=== PATIENT | male | born 1940 | race African-American/Black ===

== ENCOUNTER 2017-03-17 13:22 | Inpatient (IN) | payer MEDICARE ==
--- NOTE | 2017-03-17 14:22 | RAD ---
SINGLE VIEW CHEST: Date: 03/17/17 COMPARISON: 05/18/12. HISTORY: Difficulty breathing/dyspnea. FINDINGS: Single view of chest shows a cardiomediastinal silhouette which is upper limits of normal in size wit h atherosclerotic calcifications in the aorta. There is no evidence of consolidation or mass. There m ay be a small left pleural effusion. IMPRESSION: Possible small left pleural effusion. POS: [facility]
[2017-03-17 14:46] LABS: #Lymphocytes 0.3 thou/uL (1.20-3.40); #Monocytes 0.3 thou/uL (0.11-0.59); #Neutrophils 7.5 thou/uL (1.40-6.50); %Eosinophils 0.3 % (0.0-10.0); %Lymphocytes 4.1 % (21.0-51.0); %Monocytes 3.1 % (0.0-10.0); %Neutrophils 92.5 % (42.0-75.0); Hemoglobin 11.8 g/dL (14.0-18.0); Mean Corpuscular Hemoglobin 27.6 pg (27.0-31.0); Mean Platelet Volume 6.8 fL (7.4-10.4); Platelet Count 260 thou/uL (130-400); RBC Distribution Width 12.8 % (11.5-14.5); Red Blood Cell (RBC) Count 4.28 mill/uL (4.70-6.10); White Blood Cell (WBC) Count 8.1 thou/uL (4.8-10.8)
[2017-03-17 15:09] LABS: ALT (SGPT) 55 U/L (8-55); AST (SGOT) 50 U/L (5-34); Albumin 2.6 g/dL (3.4-4.8); Alkaline Phosphatase 50 U/L (40-150); Anion Gap 10 mmol/L (10-20); BUN (Urea Nitrogen) 70 mg/dL (8.4-25.7); Bilirubin, Total 0.3 mg/dL (0.2-1.2); CK (CPK) 434 U/L (30-200); Calc. Creatinine Clearance 0 mL/min (70-130); Calcium 9.1 mg/dL (7.8-10.44); Carbon Dioxide 30 mmol/L (23-31); Chloride 93 mmol/L (98-107); Estimated GFR-MDRD 49; Globulin 3.2 g/dL (2.4-3.5); Glucose 127 mg/dL (83-110); Protein, Total 5.8 g/dL (5.8-8.1); Sodium 127 mmol/L (136-145)
[2017-03-17 15:13] LABS: Troponin I 0.181 ng/mL (< 0.028)
[2017-03-17 15:16] LABS: CKMB 10.3 ng/mL (0-6.6)
[2017-03-17] MEDS ORDERED: Furosemide 40 MG/4 ML VIAL ONE (15:28)
[2017-03-17] MEDS ORDERED: hydrALAZINE 20 MG/ML VIAL SLOW IVP PRN (17:31)
[2017-03-17] MEDS ORDERED: Ondansetron HCl/PF 4 MG/2 ML Vial IVP PRN (17:31)
[2017-03-17] MEDS ORDERED: Dextrose 5% in Water 1,000 ML IV PRN (17:31)
[2017-03-17] MEDS ORDERED: Dextrose 50% Abboject 50 ML SYRINGE SLOW IVP PRN (17:31)
[2017-03-17] MEDS ORDERED: Acetaminophen 325 MG TAB PO PRN (17:31)
[2017-03-17] MEDS ORDERED: HYDROcodone/Acetaminophen 5/325 mg Tablet PO PRN (17:31)
[2017-03-17 17:36] VITALS: BMI 27.0
--- NOTE | 2017-03-17 20:21 | HP ---
CHIEF COMPLAINT: Shortness of breath and cough. HISTORY OF PRESENT ILLNESS: This is a 76-year-old pleasant gentleman who was recently discharged fro [facility] after being admitted there for cough and swelling of the feet. Apparently, the family was not clear. He had uncontrolled sugars as well there. The doctors of there controlled the sugar and send him home. The family noticed that the patient got progressively short of breath and hence they brought him out here. No fever, no chills. He does not have any diarrhea or dysuria. The patient d enies any chest pain. Admits to cough and shortness of breath. He usually pretty active in his [facility], but because of the bilateral swelling of the feet and cough and shortness of breath, he came to [facility] for further evaluation and treatment. His regular doctor is Dr. Blas Dimas and Dr. Cabezas is his electrotype caster. When he came in, his initial lab work reflected a high potassium of 6, low sodium of 127, troponin of 0.18 and hence he has been admitted for the evaluation and treatment of [facility]. PAST MEDICAL HISTORY: Significant for congestive heart failure. He does not know what kind of diabe kiah, bilateral pedal edema, hyperlipidemia and asthma. PAST SURGICAL HISTORY: Significant for back surgery and colonoscopy, which was significant for some polyps. ALLERGIES: No known drug allergies. SOCIAL HISTORY: He does not smoke, drink or do recreational drugs. FAMILY HISTORY: Negative for diabetes or hypertension. MEDICATIONS: Please see MAR. REVIEW OF SYSTEMS: Significant for cough, shortness of breath, which has worsened over time and bila teral pedal edema. The patient otherwise has no fever, no chills, no headache, no eye pain, no heari ng loss, no latencies. No chest pain, no diarrhea, dysuria, or polyuria. No memory or mood changes. No neck pain. PHYSICAL EXAMINATION: VITAL SIGNS: The patient's blood pressure is 130/64, pulse is 74, respirations 20 and afebrile. GENERAL: The patient is lying in bed in no apparent distress. HEENT: Atraumatic and normocephalic. Pupils are equally round and reactive to light. Extraocular m ovements intact. Mucous membranes moist. NECK: Supple. No JVD. CHEST: Coarse breath sounds heard, some dependent crackles heard. HEART: S1 and S2. No murmurs or gallops. ABDOMEN: Soft and obese. EXTREMITIES: Bilateral pedal edema. No distal pulses are palpable. No cyanosis or clubbing. LABORATORY AND IMAGING DATA: Chest x-ray shows left-sided pleural effusion, otherwise no consolidati on. WBC count is 8.1, hemoglobin is 11, potassium is 6, sodium is 127, creatinine is 1.6 and BUN is 70. Chest x-ray as mentioned above. ASSESSMENT AND PLAN: 1. Congestive heart failure exacerbation, given his shortness of breath. We will treat the patient with IV Lasix, DuoNebs for breathing. We will consult Cardiology, trend troponins p.o. 2. Hyponatremia. We will monitor the patient's sodium this hospital stay and consult Dr. Cabezas. 3. Hyperkalemia. The patient already got a dose of Kayexalate in the ER. We will monitor potassium and do the need for. We will also follow up with Dr. Cabezas's plan. 4. Elevated troponin. We will follow Cardiology's plan. We will trend troponins. We will do echoc ardiogram and monitor the patient. 5. Acute renal failure on chronic kidney disease. We will follow Dr. Cabezas's plan. 6. Moderate protein-calorie malnutrition with albumin of 2.6. The patient will be encouraged to hav e more nutritious diet. I will work with the consultants and further caring for the patient.
[2017-03-17] MEDS ORDERED: Sodium Chloride 0.9% 10 ML ONE (20:25)
[2017-03-17] MEDS: HumaLOG 300 UNITS/3 ML VIAL SC PRN (20:56)
[2017-03-17] MEDS: Docusate 100 MG CAP PO SCH (20:57)
[2017-03-17 21:13] LABS: Troponin I 0.174 ng/mL (< 0.028)
[2017-03-18] MEDS: Benzonatate 100 MG CAP PO PRN ×2 (04:02→21:50)
[2017-03-18 05:20] LABS: #Lymphocytes 0.6 thou/uL (1.20-3.40); #Monocytes 0.6 thou/uL (0.11-0.59); #Neutrophils 5.5 thou/uL (1.40-6.50); %Basophils 0.2 % (0.0-1.0); %Eosinophils 0.2 % (0.0-10.0); %Lymphocytes 9.4 % (21.0-51.0); %Monocytes 8.9 % (0.0-10.0); %Neutrophils 81.3 % (42.0-75.0); Hemoglobin 10.6 g/dL (14.0-18.0); Mean Corpuscular HGB CONC 30.8 g/dL (32.0-36.0); Mean Corpuscular Hemoglobin 27.3 pg (27.0-31.0); Mean Corpuscular Volume 88.7 fl (80.0-94.0); Mean Platelet Volume 6.6 fL (7.4-10.4); Platelet Count 243 thou/uL (130-400); Red Blood Cell (RBC) Count 3.88 mill/uL (4.70-6.10); White Blood Cell (WBC) Count 6.8 thou/uL (4.8-10.8)
[2017-03-18] MEDS ORDERED: Sodium Chloride 0.9% 10 ML ONE ×3 (05:28→23:08)
[2017-03-18 05:39] LABS: Albumin 2.4 g/dL (3.4-4.8); Anion Gap 9 mmol/L (10-20); BUN (Urea Nitrogen) 65 mg/dL (8.4-25.7); BUN/Creatinine Ratio 36.72; Calc. Creatinine Clearance 41 mL/min (70-130); Calcium 8.4 mg/dL (7.8-10.44); Carbon Dioxide 33 mmol/L (23-31); Chloride 93 mmol/L (98-107); Estimated GFR-MDRD 45; Glucose 244 mg/dL (83-110); Phosphorus 3.9 mg/dL (2.3-4.7); Sodium 130 mmol/L (136-145)
[2017-03-18] MEDS ORDERED: Furosemide 40 MG/4 ML VIAL SLOW IVP SCH ×2 (06:00→09:00)
[2017-03-18] MEDS: Docusate 100 MG CAP PO SCH ×2 (09:30→20:19)
--- NOTE | 2017-03-18 09:34 | CON ---
DATE OF CONSULTATION: 03/18/2017 HISTORY OF PRESENT ILLNESS: Mr. Nelson is a 76-year-old black male with chronic renal failure from p resumed diabetic nephropathy and admitted for shortness of breath and cough. Of interest, this patie nt was recently admitted at [facility] for COPD exacerbation. We are now being consulted for his chronic renal failure. Initially, his potassium was noted at 6, b ut this morning it was repeated, it is now within normal. REVIEW OF SYSTEMS: Positive for mild shortness of breath. Positive for cough, no nausea, no vomitin g, no diarrhea. Denies any chest pain, no syncopal episode, no productive cough, no fever or chills. Energy level is fair. No diplopia. No hematemesis. Occasional joint pains. No new skin rashes, occasional urinary hesitancy. MEDICATIONS: Currently on Alda 5/325 q.4h. p.r.n., aspirin 81 mg tab once daily, Tessalon Perles 10 0 mg p.o. q.4h. p.r.n., Colace 100 mg p.o. b.i.d., furosemide 40 mg IV q.12h., Toprol succinate 12.5 mg every day, Zofran 4 mg IV q.4h. as needed. PAST MEDICAL HISTORY: 1. COPD. 2. Chronic renal failure from diabetic nephropathy. 3. BPH. 4. Hyperlipidemia. 5. History of microalbuminuria. 6. DJD. PAST SURGICAL HISTORY: 1. Status post back surgery x2. 2. Status post circumcision. 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 Education : GED. He smoked for 2 years 1 pack a day. Alcohol none. No blood transfusion. No IV drug abuse. Patient lives in [place]. FAMILY HISTORY: No family history of ESRD. ALLERGIES: None. TRAUMA: None. IMMUNIZATIONS: Up to date. HOSPITALIZATIONS: Please see past medical history. He was recently admitted to [facility] for COPD exa cerbation. PHYSICAL EXAMINATION: VITAL SIGNS: Blood pressure 159/77, heart rate 93, respiratory rate 20, temperature 99.2, pulse ox i s 97%, temperature 99.2. GENERAL: Awake, supine, comfortable, not in overt distress. SKIN: Adequate turgor. HEENT: Slightly pale conjunctivae, anicteric sclerae. NECK: No neck mass, no carotid bruits, no JVD. CHEST: No deformities. LUNGS: Decreased breath sounds. HEART: Normal sinus rhythm. No murmur, no gallops or rubs. ABDOMEN: Globular, soft, nontender, no masses. EXTREMITIES: No edema, no deformities. NEUROLOGIC: Awake, following commands. No tremors, no asterixis. LABORATORY AND X-RAY FINDINGS: 03/18/2017 - Sodium 130, potassium 5, chloride 99, carbon dioxide 33, BUN 65, creatinine 1.77, glucose 244, calcium 8.4, phosphorus 3.9, albumin 2.4. 03/17/2017 - Creatinine 1.67. White count 6.8, hemoglobin 10.6. 03/17/2017 - Chest x-ray shows possible small left pleural effusion. ASSESSMENT AND PLAN: 1. Shortness of breath - this is most likely related to his underlying chronic obstructive pulmonary disease. Continue supportive care. Continue DuoNeb treatment with this patient. 2. Small pleural effusion. I would probably decrease the dose of the Lasix to once a day dosing. I do not think this patient is in congestive heart failure. 3. Chronic renal failure from diabetic nephropathy. Creatinine is slightly high at 1.7. His baseli ne is 1.5. Continue judicious use of diuretics. Consider decreasing Lasix dose. There is no indica tion for any dialytic intervention. Recheck base met and CBC in a.m.
[2017-03-18] MEDS: HumaLOG 300 UNITS/3 ML VIAL SC PRN ×3 (09:35→21:54)
[2017-03-18] MEDS ORDERED: cefTRIAXone\\ROCEPHIN 1 GM in Sodium Chloride 0.9% 100 ML IVPB SCH (11:15)
[2017-03-18] MEDS: cefTRIAXone\\ROCEPHIN 1 GM, Syringe 0.4 ML in Sterile Water 9.6 ML SLOW IVP SCH (13:30)
--- NOTE | 2017-03-18 15:42 | CON ---
DATE OF CONSULT: 03/18/2017 HISTORY: Patient is a 76-year-old gentleman who presents with recurrent dyspnea. The patient has a long histo ry of hypertension. He was recently at [facility] with dyspnea and poorly contro lled hypertension. The patient had his medications adjusted. He also has a history of chronic renal insufficiency. The patient presents with increasing cough, and lower extremity swelling. The patie nt denied having any chest discomfort. He denies having any PND or orthopnea. PAST MEDICAL HISTORY: 1. Congestive heart failure. 2. Hypertension. 3. Chronic renal insufficiency. 4. Asthma. 5. History of colonic polyps. PAST SURGICAL HISTORY: He has had several back surgeries. ALLERGIES: No known drug allergies. SOCIAL HISTORY: Nonsmoker. FAMILY HISTORY: Positive family history of heart disease. He sister had coronary bypass graft surgery. REVIEW OF SYSTEMS: Ten-point system is noticeable for lower extremity edema and increased coughing. Ten-point system oth erwise unremarkable. PHYSICAL EXAMINATION: GENERAL: Well developed gentleman in mild distress. VITAL SIGNS: Blood pressure 162/74. NECK: Full. LUNGS: Lungs have few scattered crackles in both bases. HEART: Regular rate and rhythm, normal S1, S2 with an S4 and a I/ systolic murmur. ABDOMEN: Distended. EXTREMITIES: Showed severe bilateral edema. NEUROLOGIC: Nonfocal. VASCULAR: Radial pulses are 2+. SKIN: Warm and dry. LABORATORY: Sodium 130, potassium 5.0, chloride 93, bicarbonate 65, BUN is 65, creatinine 1.7, glucose was 244. White blood cell count 6.8, hemoglobin 10.6, hematocrit 34.4 and his platelets are 243. His troponin was 0.17 and BNP is 342. EKG revealed normal sinus rhythm with Q-waves suggestive of possible previ ous septal infarct. Echocardiogram revealed normal left ventricular ejection fraction 60-65% with se manuel LVH and diastolic dysfunction with pulmonary hypertension. IMPRESSION: 1. Congestive heart failure secondary to diastolic dysfunction. 2. Hypertension, poorly controlled. 3. Chronic renal failure. 4. History of asthma. This gentleman presents with recurrent congestive heart failure. From a cardiac standpoint, it is im perative that he have improved control of his hypertension. Would recommend switching from Norvasc t o nifedipine to better control his blood pressure. The life threatening consequences have been expla ined to the patient of his continued poorly controlled hypertension. We would restart the patient on this labetalol. Will follow this patient with you through his hospitalization.
--- NOTE | 2017-03-18 16:08 | CON ---
HISTORY: Patient is a 76-year-old gentleman who presents with recurrent dyspnea. The patient has a long history of hypertension. He was recently at [facility] with dyspnea and poorly controlled hypertension. The patient had his medications adjusted. He also has a history of chronic renal insufficiency. The patient presents with increasing cough, and lower extremity swelling. The patient denied having any chest discomfort. He denies having any PND or orthopnea. PAST MEDICAL HISTORY: 1. Congestive heart failure. 2. Hypertension. 3. Chronic renal insufficiency. 4. Asthma. 5. History of colonic polyps. PAST SURGICAL HISTORY: He has had several back surgeries. ALLERGIES: No known drug allergies. SOCIAL HISTORY: Nonsmoker. FAMILY HISTORY: Positive family history of heart disease. His sister had coronary bypass graft surgery. REVIEW OF SYSTEMS: Ten-point system is noticeable for lower extremity edema and increased coughing. Ten-point system otherwise unremarkable. PHYSICAL EXAMINATION: GENERAL: Well developede gentleman in mild distress. VITAL SIGNS: Blood pressure 162/74. NECK: Full. LUNGS: Lungs have few scattered crackles in both bases. HEART: Regular rate and rhythm, normal S1, S2 with an S4 and a I/ systolic murmur. ABDOMEN: Distended. EXTREMITIES: Showed severe bilateral edema. NEUROLOGIC: Nonfocal. VASCULAR: Radial pulses are 2+. SKIN: Warm and dry. LABORATORY: Sodium 130, potassium 5.0, chloride 93, bicarbonate 65, BUN is 65, creatinine 1.7, glucose was 244. White blood cell count 6.8, hemoglobin 10.6, hematocrit 34.4 and his platelets are 243. His troponin was 0.17 and BNP is 342. EKG revealed normal sinus rhythm with Q-waves suggestive of possible previous septal infarct. Echocardiogram revealed normal left ventricular ejection fraction 60-65% with severe LVH and diastolic dysfunction with pulmonary hypertension. IMPRESSION: 1. Congestive heart failure secondary to diastolic dysfunction. 2. Hypertension, poorly controlled. 3. Chronic renal failure. 4. History of asthma. This gentleman presents with recurrent congestive heart failure. From a cardiac standpoint, it is imperative that he have improved control of his hypertension. Would recommend switching from Norvasc to nifedipine to better control his blood pressure. The life threatening consequences have been explained to the patient of his continued poorly controlled hypertension. We would restart the patient on this labetalol. Will follow this patient with you through his hospitalization. [facility]
--- NOTE | 2017-03-18 16:25 | PDOC.PN ---
- Subjective Encounter Start Date: 03/18/17 Encounter Start Time: 16:23 feels better sob better no n/v no f/c c/o cough - Objective MAR Reviewed: Yes Vital Signs & Weight: Vital Signs (12 hours) Temp Pulse Resp BP Pulse Ox 03/18/17 09:30 98.5 F 94 20 94 L 03/18/17 09:23 98.5 F 94 20 162/74 H 94 L Weight Weight 183 lb 1.6 oz I&O: 03/17/17 03/18/17 03/19/17 06:59 06:59 06:59 Intake Total 564 Output Total 450 Balance 114 Result Diagrams: 03/18/17 05:00 03/18/17 05:00 Additional Labs: Accuchecks 03/18/17 03/18/17 03/17/17 11:07 06:04 20:12 POC Glucose 212 H 224 H 204 H 03/17/17 18:04 POC Glucose 244 H Phys Exam - Physical Examination Constitutional: NAD HEENT: PERRLA Neck: no JVD coarse bs, some scattered wheezes Cardiovascular: no significant murmur Gastrointestinal: non-tender Musculoskeletal: pulses present Neurological: moves all 4 limbs Psychiatric: A&O x 3 Dx/Plan (1) Diastolic CHF, acute on chronic Code(s): I50.33 - ACUTE ON CHRONIC DIASTOLIC (CONGESTIVE) HEART FAILURE Status : Acute (2) Elevated troponin Code(s): R74.8 - ABNORMAL LEVELS OF OTHER SERUM ENZYMES Status: Acute (3) Renal failure (ARF), acute on chronic Code(s): N17.9 - ACUTE KIDNEY FAILURE, UNSPECIFIED; N18.9 - CHRONIC KIDNEY DISEASE, UNSPECIFIED Status: Acute (4) COPD exacerbation Code(s): J44.1 - CHRONIC OBSTRUCTIVE PULMONARY DISEASE W (ACUTE) EXACERBATION Status: Acute - Plan * bp control * short course of steroids and abx * f/u card and renal plan * monitor lytes
[2017-03-18] MEDS: NIFEdipine XL 60 MG TAB PO SCH (18:20)
[2017-03-18] MEDS: Labetalol 100 MG TAB PO SCH (20:19)
[2017-03-18] MEDS: guaiFENesin ER 600 MG TAB PO SCH (20:19)
[2017-03-18] MEDS ORDERED: Simvastatin 20 MG TAB PO SCH (21:00)
[2017-03-19 05:01] LABS: #Lymphocytes 0.2 thou/uL (1.20-3.40); #Monocytes 0.1 thou/uL (0.11-0.59); #Neutrophils 6.3 thou/uL (1.40-6.50); %Basophils 0.1 % (0.0-1.0); %Eosinophils 0.1 % (0.0-10.0); %Lymphocytes 3.1 % (21.0-51.0); %Neutrophils 94.6 % (42.0-75.0); Hemoglobin 10.7 g/dL (14.0-18.0); Mean Corpuscular HGB CONC 30.3 g/dL (32.0-36.0); Mean Corpuscular Hemoglobin 26.8 pg (27.0-31.0); Mean Corpuscular Volume 88.4 fl (80.0-94.0); Mean Platelet Volume 6.9 fL (7.4-10.4); Platelet Count 213 thou/uL (130-400); RBC Distribution Width 12.7 % (11.5-14.5); Red Blood Cell (RBC) Count 3.98 mill/uL (4.70-6.10); White Blood Cell (WBC) Count 6.6 thou/uL (4.8-10.8)
[2017-03-19] MEDS ORDERED: Sodium Chloride 0.9% 10 ML ONE (05:04)
[2017-03-19 05:22] LABS: Albumin 2.4 g/dL (3.4-4.8); Anion Gap 12 mmol/L (10-20); BUN (Urea Nitrogen) 65 mg/dL (8.4-25.7); BUN/Creatinine Ratio 39.39; Calc. Creatinine Clearance 44 mL/min (70-130); Calcium 8.4 mg/dL (7.8-10.44); Carbon Dioxide 31 mmol/L (23-31); Chloride 93 mmol/L (98-107); Estimated GFR-MDRD 49; Glucose 312 mg/dL (83-110); Phosphorus 3.6 mg/dL (2.3-4.7); Potassium 5.2 mmol/L (3.5-5.1); Sodium 131 mmol/L (136-145)
[2017-03-19] MEDS: HumaLOG 300 UNITS/3 ML VIAL SC PRN ×4 (06:24→22:01)
[2017-03-19] MEDS: Benzonatate 100 MG CAP PO PRN (09:48)
[2017-03-19] MEDS: Labetalol 100 MG TAB PO SCH ×2 (09:48→22:01)
[2017-03-19] MEDS: guaiFENesin ER 600 MG TAB PO SCH ×2 (09:48→22:01)
[2017-03-19] MEDS: Docusate 100 MG CAP PO SCH ×2 (09:48→22:01)
--- NOTE | 2017-03-19 10:07 | PRG ---
DATE OF SERVICE: 03/19/2017 SUBJECTIVE: Mr. Nelson is a 76-year-old black male admitted for COPD exacerbation. We are following up this patient for his chronic renal failure. Renal function remains stable. This morning his jane athing is better. Denies any new complaints. PHYSICAL EXAMINATION: VITAL SIGNS: Blood pressure is 148/76, heart rate 81, respiratory rate 18, temperature 98.1, pulse o x 97%. GENERAL: Noted to be awake, alert, sitting comfortable, not in overt distress. SKIN: Adequate turgor. HEENT: Pinkish conjunctivae, anicteric sclerae. NECK: No neck mass, no carotid bruits, no JVD. CHEST: No deformities. LUNGS: Decreased breath sounds. No wheezing, no crackles. HEART: Normal sinus rhythm. No murmur, no gallops or rubs. ABDOMEN: Globular, soft, nontender, no masses. EXTREMITIES: No edema. MEDICATIONS: 03/19/2017 - Reviewed. MEDICATIONS: 03/19/2017 - White count 6.6, hemoglobin 10.7. Sodium 131, potassium 5.2, chloride 93 , carbon dioxide 31, BUN 65, creatinine 1.65, glucose 312, calcium 8.4, phosphorus is 3.6. ASSESSMENT AND PLAN: 1. Acute kidney injury/chronic renal failure, relatively stabilizing renal function. Creatinine is noted at 1.65, and yesterday this was at 1.77. Please note he is on adjusted dose of the Lasix. No indication for any dialytic intervention. 2. Borderline anemia. Continue to observe. 3. Chronic obstructive pulmonary disease exacerbation. Continue current medication. Supportive car e. We will recheck basic metabolic panel and CBC in a.m.
[2017-03-19] MEDS: cefTRIAXone\\ROCEPHIN 1 GM, Syringe 0.4 ML in Sterile Water 9.6 ML SLOW IVP SCH (13:01)
--- NOTE | 2017-03-19 13:41 | PDOC.PN ---
- Subjective Encounter Start Date: 03/19/17 Encounter Start Time: 10:00 -: old records requested/rev Pt seen and exmained, chart reviewe din its entirety, case discussed with . This is my first visit with this patient. no F/C, no N/V/D/C, some REID, O2 back to home levels, on 2L NC continuous. No CP, no diaphoresis, cleaning his trays. Pt has [facility], wants to continue. PT/OT ordered to eval 10 point ROS performed and neg for all systems except as per HPI - Objective MAR Reviewed: Yes Vital Signs & Weight: Vital Signs (12 hours) Temp Pulse Resp BP BP Pulse Ox 03/19/17 12:00 97.6 F 90 19 143/68 H 96 03/19/17 08:00 98.4 F 80 20 135/70 98 03/19/17 04:00 98.1 F 81 18 148/76 H 97 03/19/17 01:51 83 18 96 Weight Weight 175 lb I&O: 03/18/17 03/19/17 03/20/17 06:59 06:59 06:59 Intake Total 564 881 Output Total 450 1800 Balance 114 -919 Result Diagrams: 03/19/17 04:44 03/19/17 04:44 Additional Labs: Accuchecks 03/19/17 03/19/17 03/18/17 11:11 05:46 20:25 POC Glucose 351 H 312 H 363 H 03/18/17 17:09 POC Glucose 246 H Radiology Reviewed by me: Yes EKG Reviewed by me: Yes Phys Exam - Physical Examination Constitutional: NAD HEENT: PERRLA, moist MMs, sclera anicteric, oral pharynx no lesions Neck: no nodes, no JVD, supple, full ROM Respiratory: no wheezing, no rales, no rhonchi, clear to auscultation bilateral Cardiovascular: RRR, no significant murmur, no rub Gastrointestinal: soft, non-tender, no distention, positive bowel sounds Musculoskeletal: pulses present, edema present Neurological: non-focal, normal sensation, moves all 4 limbs Lymphatic: no nodes Psychiatric: normal affect, A&O x 3 Skin: no rash, normal turgor, cap refill <2 seconds Dx/Plan (1) Hypokalemia Code(s): E87.6 - HYPOKALEMIA Status: Acute Comment: 3.4. Renal following, will hold of on replacement due to CKD and CORNELIA (2) Hyponatremia Code(s): E87.1 - HYPO-OSMOLALITY AND HYPONATREMIA Status: Resolved (3) COPD exacerbation Code(s): J44.1 - CHRONIC OBSTRUCTIVE PULMONARY DISEASE W (ACUTE) EXACERBATION Status: Acute Comment: improved. Steroids, nebs, abx (4) Diastolic CHF, acute on chronic Code(s): I50.33 - ACUTE ON CHRONIC DIASTOLIC (CONGESTIVE) HEART FAILURE Status : Acute Comment: improved, O2 weaned, BLE edema presnet (5) Elevated troponin Code(s): R74.8 - ABNORMAL LEVELS OF OTHER SERUM ENZYMES Status: Resolved Comment: demand ischemia - resolved (6) Renal failure (ARF), acute on chronic Code(s): N17.9 - ACUTE KIDNEY FAILURE, UNSPECIFIED; N18.9 - CHRONIC KIDNEY DISEASE, UNSPECIFIED Status: Resolved Qualifiers: Acute renal failure type: unspecified Chronic kidney disease stage: stage 3 (moderate) Qualified Code(s): N17.9 - Acute kidney failure, unspecified; N18.3 - Chronic kidney disease, stage 3 (moderate); N18.3 - Chronic kidney disease, stage 3 (moderate) - Plan cont current plan of care, plan discussed w/ family, PT/OT, delinquency prevention social worker, respiratory therapy, out of bed/ambulate * .
[2017-03-19] MEDS ORDERED: Dextrose 50% Abboject 50 ML SYRINGE SLOW IVP PRN (14:28)
[2017-03-19] MEDS ORDERED: Dextrose 5% in Water 1,000 ML IV PRN (14:28)
[2017-03-19] MEDS: Furosemide 40 MG/4 ML VIAL SLOW IVP SCH (15:09)
[2017-03-19] MEDS: NIFEdipine XL 60 MG TAB PO SCH (18:26)
[2017-03-19] MEDS: Atorvastatin Calcium 20 MG TAB PO SCH (22:01)
[2017-03-20 05:43] LABS: #Lymphocytes 1.1 thou/uL (1.20-3.40); #Monocytes 0.6 thou/uL (0.11-0.59); #Neutrophils 7.4 thou/uL (1.40-6.50); %Basophils 0.2 % (0.0-1.0); %Eosinophils 0.3 % (0.0-10.0); %Lymphocytes 11.8 % (21.0-51.0); %Monocytes 6.4 % (0.0-10.0); %Neutrophils 81.3 % (42.0-75.0); Hemoglobin 10.7 g/dL (14.0-18.0); Mean Corpuscular HGB CONC 30.1 g/dL (32.0-36.0); Mean Corpuscular Hemoglobin 26.7 pg (27.0-31.0); Mean Corpuscular Volume 88.6 fl (80.0-94.0); Mean Platelet Volume 7.5 fL (7.4-10.4); Platelet Count 205 thou/uL (130-400); RBC Distribution Width 12.9 % (11.5-14.5); White Blood Cell (WBC) Count 9.1 thou/uL (4.8-10.8)
[2017-03-20] MEDS ORDERED: Sodium Chloride 0.9% 10 ML ONE (05:44)
[2017-03-20] MEDS: Furosemide 40 MG/4 ML VIAL SLOW IVP SCH (05:50)
[2017-03-20] MEDS: HumaLOG 300 UNITS/3 ML VIAL SC PRN ×4 (05:53→21:19)
[2017-03-20 06:06] LABS: Anion Gap 12 mmol/L (10-20); BUN (Urea Nitrogen) 61 mg/dL (8.4-25.7); Calc. Creatinine Clearance 42 mL/min (70-130); Calcium 8.5 mg/dL (7.8-10.44); Carbon Dioxide 33 mmol/L (23-31); Chloride 94 mmol/L (98-107); Estimated GFR-MDRD 49; Glucose 276 mg/dL (83-110); Potassium 4.8 mmol/L (3.5-5.1); Sodium 134 mmol/L (136-145)
--- NOTE | 2017-03-20 08:34 | PRG ---
DATE OF SERVICE: 03/20/2017 SUBJECTIVE: Mr. Nelson is a 76-year-old black male with known history of chronic renal failure - fol lowed up by the [facility]. He was initially admitted for COPD exacerbation. His breathing is ac tually improved. He denies any new complaints today. OBJECTIVE: VITAL SIGNS: Blood pressure is 142/69, heart rate 80, respiratory rate 18, temperature 98.5, and pul se ox 96%. GENERAL: Noted to be awake, alert, comfortable, not in overt distress. SKIN: Adequate turgor. HEENT: Pinkish conjunctivae, anicteric sclerae. NECK: No neck mass, no carotid bruits, no JVD. CHEST: No deformities. LUNGS: Decreased breath sounds. HEART: Normal sinus rhythm. No murmur, no gallops, no rubs. ABDOMEN: Globular, soft, nontender. EXTREMITIES: No edema. MEDICATIONS: 03/20/2017 was reviewed. LABORATORY DATA: On 03/20/2017 - White count 9.1, hemoglobin 10.7. Sodium 134, potassium 4.8, chlor socorro 94, carbon dioxide 33, BUN 61, creatinine 1.67, glucose 276, and calcium 8.5. ASSESSEMNT AND PLAN: 1. Chronic renal failure, relatively stable renal function. No indication for any dialytic interven tion. Please note diuretics are now placed on hold. 2. Chronic obstructive pulmonary disease exacerbation - Continue supportive care. Recheck basic met in a.m. I agree with current management.
[2017-03-20] MEDS: Enoxaparin Sodium 30 MG/0.3 ML SYRINGE SC SCH (09:59)
[2017-03-20] MEDS: Benzonatate 100 MG CAP PO PRN (10:00)
[2017-03-20] MEDS: Labetalol 100 MG TAB PO SCH ×2 (10:00→21:17)
[2017-03-20] MEDS: guaiFENesin ER 600 MG TAB PO SCH ×2 (10:00→21:17)
[2017-03-20] MEDS: Docusate 100 MG CAP PO SCH ×2 (10:00→21:17)
--- NOTE | 2017-03-20 12:02 | PDOC.PN ---
- Subjective Encounter Start Date: 03/20/17 Encounter Start Time: 08:30 Pt breathing better, weaned down to 1L for now, no n/v/D/C, andrei po Case discussed with Dr Chaidez face to face, wants to diurese one more day, likely home tomorrow No F/C, no CP. less REID 10 point ROS performed and neg for all systems except as above - Objective MAR Reviewed: Yes Vital Signs & Weight: Vital Signs (12 hours) Temp Pulse Resp BP Pulse Ox 03/20/17 04:00 98.5 F 80 18 142/69 H 96 Weight Weight 176 lb 1 oz I&O: 03/19/17 03/20/17 03/21/17 06:59 06:59 06:59 Intake Total 881 1200 Output Total 1800 1530 Balance -919 -330 Result Diagrams: 03/20/17 05:11 03/20/17 05:11 Additional Labs: Accuchecks 03/20/17 03/20/17 03/19/17 11:16 05:54 20:11 POC Glucose 247 H 319 H 358 H 03/19/17 16:07 POC Glucose 377 H Radiology Reviewed by me: Yes EKG Reviewed by me: Yes Phys Exam - Physical Examination Constitutional: NAD HEENT: PERRLA, moist MMs, sclera anicteric, oral pharynx no lesions Neck: no nodes, no JVD, supple, full ROM Respiratory: no wheezing, no rales, no rhonchi, clear to auscultation bilateral Cardiovascular: RRR, no significant murmur, no rub Gastrointestinal: soft, non-tender, no distention, positive bowel sounds Musculoskeletal: pulses present, edema present 2+ BLE to mid tibia Neurological: non-focal, normal sensation, moves all 4 limbs Lymphatic: no nodes Psychiatric: normal affect, A&O x 3 Skin: no rash, normal turgor, cap refill <2 seconds Dx/Plan (1) Hypokalemia Code(s): E87.6 - HYPOKALEMIA Status: Resolved Comment: 3.4. Renal following , will hold of on replacement due to CKD and CORNELIA (2) Hyponatremia Code(s): E87.1 - HYPO-OSMOLALITY AND HYPONATREMIA Status: Resolved (3) COPD exacerbation Code(s): J44.1 - CHRONIC OBSTRUCTIVE PULMONARY DISEASE W (ACUTE) EXACERBATION Status: Acute Comment: improved. Steroids, nebs, abx (4) Diastolic CHF, acute on chronic Code(s): I50.33 - ACUTE ON CHRONIC DIASTOLIC (CONGESTIVE) HEART FAILURE Status : Acute Comment: improved, O2 weaned, BLE edema present (5) Elevated troponin Code(s): R74.8 - ABNORMAL LEVELS OF OTHER SERUM ENZYMES Status: Resolved Comment: demand ischemia - resolved (6) Renal failure (ARF), acute on chronic Code(s): N17.9 - ACUTE KIDNEY FAILURE, UNSPECIFIED; N18.9 - CHRONIC KIDNEY DISEASE, UNSPECIFIED Status: Resolved Qualifiers: Acute renal failure type: unspecified Chronic kidney disease stage: stage 3 (moderate) Qualified Code(s): N17.9 - Acute kidney failure, unspecified; N18.3 - Chronic kidney disease, stage 3 (moderate); N18.3 - Chronic kidney disease, stage 3 (moderate) - Plan cont current plan of care, plan discussed w/ family, PT/OT, licensed social worker, respiratory therapy, out of bed/ambulate, DVT proph w/lovenox * .
[2017-03-20] MEDS: cefTRIAXone\\ROCEPHIN 1 GM, Syringe 0.4 ML in Sterile Water 9.6 ML SLOW IVP SCH (12:52)
[2017-03-20] MEDS: NIFEdipine XL 60 MG TAB PO SCH (18:14)
[2017-03-20] MEDS: Atorvastatin Calcium 20 MG TAB PO SCH (21:17)
[2017-03-21 05:48] LABS: Anion Gap 11 mmol/L (10-20); BUN (Urea Nitrogen) 54 mg/dL (8.4-25.7); Calc. Creatinine Clearance 49 mL/min (70-130); Calcium 8.5 mg/dL (7.8-10.44); Carbon Dioxide 33 mmol/L (23-31); Chloride 94 mmol/L (98-107); Estimated GFR-MDRD 58; Glucose 287 mg/dL (83-110); Potassium 4.8 mmol/L (3.5-5.1); Sodium 133 mmol/L (136-145)
--- NOTE | 2017-03-21 07:21 | PRG ---
DATE OF SERVICE: 03/21/2017 Mr. Nelson is a 76-year-old black male with known history of chronic renal failure who was admitted f or COPD exacerbation. Currently on DuoNeb. No new complaints today. From a renal point of view, he remains stable. PHYSICAL EXAMINATION: VITAL SIGNS: Blood pressure 141/68, heart rate 84, respiratory rate 19, temperature 97.8, pulse ox 9 6%. GENERAL: Noted to be awake, alert, supine, comfortable. SKIN: Adequate turgor. HEENT: Slightly pale conjunctivae, anicteric sclerae. NECK: No neck mass, no carotid bruits, no JVD. CHEST: No deformities. LUNGS: Harsh breath sounds. Occasional wheezing. HEART: Normal sinus rhythm. No murmur, no gallops, no rubs. ABDOMEN: Globular, soft, nontender, no masses. EXTREMITIES: Trace edema. MEDICATIONS: 03/21/2017 - Reviewed. LABORATORIES: 03/20/2017. Hemoglobin 10.7, white count 9.1. 03/21/2017 - Sodium 133, potassium 4.8, chloride 94, carbon dioxide 33, BUN 54, creatinine 1.42, gluc ose 287, calcium 8.5. ASSESSMENT AND PLAN: 1. Chronic renal failure - doing well. Renal function has been stabilizing. I would continue to ho ld off any diuretics or DOMINGA inhibitors with this patient. There is no indication for any dialytic in tervention. 2. Chronic obstructive pulmonary disease, multifactorial, consider chronic obstructive pulmonary dis ease exacerbation. The patient is currently being empirically treated with IV antibiotics. He heron nues to receive his DuoNeb. At the present time I agree with current management. No other changes to be made. I agree with plan virgil discharge today. The patient will be [facility] up at [facility].
[2017-03-21 08:00] VITALS: TEMP 98.2
[2017-03-21] MEDS: Labetalol 100 MG TAB PO SCH (09:19)
[2017-03-21] MEDS: Docusate 100 MG CAP PO SCH (09:19)
[2017-03-21] MEDS: guaiFENesin ER 600 MG TAB PO SCH (09:20)
[2017-03-21] MEDS: Enoxaparin Sodium 30 MG/0.3 ML SYRINGE SC SCH (09:20)
[2017-03-21] MEDS: cefTRIAXone\\ROCEPHIN 1 GM, Syringe 0.4 ML in Sterile Water 9.6 ML SLOW IVP SCH (11:23)
[2017-03-21] MEDS: HumaLOG 300 UNITS/3 ML VIAL SC PRN (11:30)
[2017-03-21 14:23] VITALS: BP 140/69
--- NOTE | 2017-03-21 15:49 | DIS ---
PRIMARY CARE PHYSICIAN: Blas Dimas M.D. PRIMARY BILINGUAL SPANISH [employer] SALES: Uziel Chaidez M.D. PRIMARY WATER FABRICATOR OPERATOR: Landon Cabezas M.D. DATE OF ADMISSION: 03/17/2017 DATE OF DISCHARGE: 03/20/2017 DISCHARGE DIAGNOSES: 1. Acute on chronic systolic congestive heart failure. 2. Hyponatremia. 3. Decreased serum osmolality. 4. Hyperkalemia. 5. Demand ischemia with elevated troponin. 6. Acute kidney injury on chronic kidney disease. 7. Moderate protein-calorie malnutrition. CONSULTATIONS: 1. Cardiology, Dr. Uziel Chaidez, 03/18/2017. 2. Dr. Landon Cabezas, 03/18/2017 for Nephrology. PROCEDURES: Echocardiogram on 03/17/2017 revealed ejection fraction normal at 60-65%, normal left at rial size and left ventricular size, diastolic dysfunction, mild mitral regurgitation, moderate tricu spid regurgitation, and right ventricular systolic pressure that was elevated, but not quantified. HISTORY AND PHYSICAL: Mr. Nelson is a 76-year-old -Stateless male, who presented to the emerge ncy department on the day of admission 03/17/2017 with complaints of shortness of breath and cough. He has been over the medication during recent admission for cough and swelling of the feet and was no shauna to have uncontrolled sugars where we get a hold of his sugars and get some fluid off him and then let him go home. He began to get progressively more short of breath. He had no fevers or chills. No diarrhea, dysuri a, or hematuria. Denied any chest pain. Workup in the emergency department showed a potassium of 6, sodium of 127, troponin 0.18. The patient was subsequently admitted for further workup. HOSPITAL COURSE: The patient was seen and examined by Dr. Crowe. The patient was admitted to inpatient. Cardiology and Nephrology were both consulted on admission. He was given IV Lasix, DuoN ebs for history of COPD, troponins were trended, and Dr. Cabezas was consulted for hyponatremia. For his high potassium, he had already received some Kayexalate in the ER and he was started on Lasix for di uresis, so no further changes were made. Echocardiogram was ordered due to the elevated troponins an d repeat labs were ordered. On 03/18/2017, the patient was seen by both Dr. Cabezas and Dr. Chaidez. They recommended continued diu resis and monitoring of renal function. The patient was continued to be monitored. By 03/19/2017, I took the case over. The patient was breathing better, but still not back to baselin e. Creatinine was slowly improving and the sodium was starting to come up. On 03/20/2017, patient was feeling much better. Dr. Chaidez wanted to keep him 1 more day for furth er diuresis and Dr. Cabezas agreed to monitor renal function. Today, 03/21/2017, the day of discharge, srinath benítez's creatinine was actually improved down to 1.42. He was satting 94-96% on 1-1.5 liters nasal cannula, and was cleared for discharge. He was seen and evaluated by physical therapy and arrangemen ts were made regarding home health care who already took care of his home health care needs to provid e physical and occupational therapy as an outpatient. PHYSICAL EXAMINATION: The patient was seen and examined on the day of discharge. Discharge plan and disposition were discussed with the patient [id number] at the bedside. DISCHARGE MEDICATIONS: 1. Albuterol sulfate 2.5 mg nebulized q.4 hours p.r.n. shortness of breath. 2. Pravachol 20 mg p.o. at bedtime. 3. Singulair 10 mg p.o. daily. 4. Hydralazine 25 mg p.o. t.i.d. 5. Prednisone 10 mg p.o. daily. 6. Labetalol 100 mg p.o. b.i.d. 7. Xyzal (levocetirizine) 5 mg p.o. daily. 8. Lasix 20 mg p.o. q.a.m. 9. Guaifenesin ER 1200 mg p.o. b.i.d. 10. Nifedipine 60 mg p.o. q.p.m. at 1800. 11. Levofloxacin 500 mg p.o. daily for 3 more days. 12. DuoNeb 3 mL q.6 hours scheduled. 13. Benzonatate 100 mg p.o. q.4 hours p.r.n. cough. 14. Aspirin 81 mg daily. FOLLOWUP APPOINTMENTS: 1. Primary care physician, Dr. Blas Dimas within a week. 2. Cardiology in 2-[address] Chaidez. DISCHARGE DIET: Heart healthy diabetic recommended. The patient was encouraged to take a regular so dium diet. DISCHARGE ACTIVITY: Per cardiopulmonary limits. PT/OT with home care has been ordered. Outpatient CHF clinic has been arranged. DISCHARGE CONDITION: Stable. DISPOSITION: Discharged to home with [facility] via private vehicle with his family.
== END 2017-03-21 14:50 | disposition home health service (06) | DRG 291 ==
LOC: ERS 13:22 → 2NO 15:42
PROVIDERS: ADMIT Internal Medicine; ATTEND Internal Medicine
DX: I13.0 Hypertensive heart and chronic kidney disease with heart failure and stage 1 through stage 4 chronic kidney disease, or unspecified chronic kidney disease (principal); I50.33 Acute on chronic diastolic (congestive) heart failure; N17.9 Acute kidney failure, unspecified; E44.0 Moderate protein-calorie malnutrition; E11.21 Type 2 diabetes mellitus with diabetic nephropathy; E87.1 Hypo-osmolality and hyponatremia; J44.1 Chronic obstructive pulmonary disease with (acute) exacerbation; I24.8 Other forms of acute ischemic heart disease; E87.5 Hyperkalemia; D64.9 Anemia, unspecified; E78.5 Hyperlipidemia, unspecified; Z68.25 Body mass index [BMI] 25.0-25.9, adult; I08.1 Rheumatic disorders of both mitral and tricuspid valves; Z79.82 Long term (current) use of aspirin; I27.20 Pulmonary hypertension, unspecified; N40.0 Benign prostatic hyperplasia without lower urinary tract symptoms; Z87.891 Personal history of nicotine dependence; N18.3 Chronic kidney disease, stage 3 (moderate); E11.22 Type 2 diabetes mellitus with diabetic chronic kidney disease; I44.0 Atrioventricular block, first degree
CPT/HCPCS: 36415; 36416; 71045; 80048; 80053; 80069; 82553; 83880; 84484; 85025; 93005; 93306; 93798; 94640; 96374; A4216; G8978-GP-CK; G8979-GP-CK; G8980-GP-CK; G8987-GO-CJ; G8988-GO-CI; J0696; J1650; J1940; J2920; J7620

== ENCOUNTER 2017-03-27 12:45 | Inpatient (IN) | payer MEDICARE ==
--- NOTE | 2017-03-27 13:53 | RAD ---
CHEST ONE VIEW: History: Dyspnea. Comparison: 03-17-17 FINDINGS: Cardiac silhouette is magnified and partially obscured by an elevated left hemidiaphragm and patchy b ibasilar infiltrates. Pulmonary vasculature is engorged with patchy bilateral perihilar infiltrates. No evidence of pneumothorax. gun perforator leads overlie the chest. IMPRESSION: 1. Mild pulmonary vascular congestion. POS: [facility]
[2017-03-27] MEDS ORDERED: Nitroglycerin 2% Ointment 1 INCH/1 GM Packet ONE (14:06)
[2017-03-27] MEDS ORDERED: Furosemide 40 MG/4 ML VIAL ONE (14:06)
[2017-03-27 14:29] LABS: #Lymphocytes 0.4 thou/uL (1.20-3.40); #Monocytes 0.5 thou/uL (0.11-0.59); #Neutrophils 4.1 thou/uL (1.40-6.50); %Basophils 0.3 % (0.0-1.0); %Eosinophils 0.7 % (0.0-10.0); %Monocytes 9.2 % (0.0-10.0); %Neutrophils 81.8 % (42.0-75.0); Hemoglobin 11.1 g/dL (14.0-18.0); Mean Corpuscular HGB CONC 31.4 g/dL (32.0-36.0); Mean Corpuscular Hemoglobin 27.7 pg (27.0-31.0); Mean Corpuscular Volume 88.4 fl (80.0-94.0); Mean Platelet Volume 7.5 fL (7.4-10.4); Platelet Count 131 thou/uL (130-400); RBC Distribution Width 12.8 % (11.5-14.5)
[2017-03-27 14:51] LABS: ALT (SGPT) 32 U/L (8-55); AST (SGOT) 41 U/L (5-34); Albumin 2.9 g/dL (3.4-4.8); Alkaline Phosphatase 56 U/L (40-150); Anion Gap 6 mmol/L (10-20); BUN (Urea Nitrogen) 36 mg/dL (8.4-25.7); Bilirubin, Total 0.4 mg/dL (0.2-1.2); CK (CPK) 260 U/L (30-200); Calc. Creatinine Clearance 0 mL/min (70-130); Calcium 8.7 mg/dL (7.8-10.44); Carbon Dioxide 36 mmol/L (23-31); Chloride 87 mmol/L (98-107); Estimated GFR-MDRD 66; Globulin 3.1 g/dL (2.4-3.5); Magnesium 1.8 mg/dL (1.6-2.6); Potassium 4.2 mmol/L (3.5-5.1); Sodium 125 mmol/L (136-145)
[2017-03-27 14:54] LABS: Troponin I 0.249 ng/mL (< 0.028)
[2017-03-27 14:55] LABS: Glucose 40 mg/dL (83-110)
[2017-03-27 15:13] LABS: CKMB 7.2 ng/mL (0-6.6)
[2017-03-27 16:01] LABS: PTT 27.1 SEC (22.9-36.1); Prothrombin Time 13.6 SEC (12.0-14.7)
[2017-03-27 16:43] LABS: Bilirubin Negative (Negative); Blood, Urine Negative (Negative); Clarity CLEAR (Clear); Glucose, Urine (Dipstick) Negative (Negative); Leukocyte Negative (Negative); Nitrite Negative (Negative); Protein, Urine (Dipstick) 100 mg/dL (Neg-Trace); Specific Gravity, Urine 1.011 (1.002-1.036); Urobilinogen 0.2 mg/dL (0.2-1.0)
[2017-03-27 16:46] LABS: Bacteria/HPF None Seen HPF (None Seen); Hyaline Casts/LPF 0-3 HYALINE CAST LPF (0-3 Hyaline); RBC/HPF 0-3 HPF (0-3); Squamous Epithelial None Seen HPF (0-3); WBC/HPF None Seen HPF (0-3)
[2017-03-27 18:13] LABS: Troponin I 0.245 ng/mL (< 0.028)
[2017-03-27] MEDS ORDERED: Ondansetron ODT 4 MG TAB SL PRN (18:27)
[2017-03-27] MEDS ORDERED: Ondansetron HCl/PF 4 MG/2 ML Vial IVP PRN ×2 (18:27→19:48)
[2017-03-27] MEDS ORDERED: Acetaminophen 500 MG TAB PO PRN (19:48)
[2017-03-27] MEDS ORDERED: hydrALAZINE 20 MG/ML VIAL SLOW IVP PRN (19:48)
[2017-03-27] MEDS ORDERED: Ondansetron ODT 4 MG TAB PO PRN (19:48)
[2017-03-27] MEDS ORDERED: cloNIDine 0.1 MG TAB PO PRN (19:48)
[2017-03-27] MEDS ORDERED: Mometasone/Formoterol 120 PUFF INHALER INH SCH (20:15)
[2017-03-27] MEDS ORDERED: Furosemide 40 MG/4 ML VIAL SLOW IVP SCH ×2 (20:15→21:00)
[2017-03-27 21:03] LABS: Troponin I 0.245 ng/mL (< 0.028)
[2017-03-27] MEDS: hydrALAZINE 25 MG TAB PO SCH (21:08)
[2017-03-27] MEDS: Famotidine 20 MG TAB PO SCH (21:08)
[2017-03-27] MEDS: Amoxicillin/Potassium Clav 500 MG TAB PO SCH (21:08)
[2017-03-27] MEDS ORDERED: Nitroglycerin 2% Ointment 1 INCH/1 GM Packet TOP SCH (23:59)
--- NOTE | 2017-03-28 00:56 | HP ---
DATE OF ADMISSION: 03/27/2017 PRIMARY CARE PHYSICIAN: Dr. Blas Dimas. CHIEF COMPLAINT: Shortness of breath and leg swelling. HISTORY OF PRESENT ILLNESS: This is a 76-year-old -Eritre[place] male who presents to [facility] in transfer from [place] after apparently presenting to the [facility] with increased shortness of breath, swelling of the lower extremities in the context of known diastolic dysfunction and preserved ejection fraction of 60%-65% by 2D transthoracic echocardiogram on 03/18/2017. The patient was recently admitted to [facility] from 03/17/2017 through 03/21/2017 for acute congestive heart failure exacerbation treated with IV Lasix. The patient was also treated for suspected bronchitis/COPD/asthma. Discharged on prednisone, Singulair, albuterol sulfate, prednisone, and Levaquin. The patient was also continued on DuoNebs a nd Tessalon Perles. The patient states he has been compliant with his chronic medication regimen, de nied any specific sick contacts, fever, chills, or productive cough. Patient states his breathing is worse with lying flat and has some improvement with sitting upright. Patient has noted persistent l ower extremity swelling, despite the use of oral Lasix. Patient denied any recent chest pain, jaw, o r left-arm discomfort. The patient states he has been prescribed home oxygen at approximately 2 lite rs per minute by nasal cannula after his recent admission to [facility]. The patient states he has been using the oxygen continuously due to the shortness of breath. The patient states he has had limited mobility at home, but is able that typically ambulate without assistance o r difficulty. In the emergency room, the patient underwent general evaluation including chest imagin g showing mild pulmonary vascular prominence. Patient received aspirin 324 mg with Lasix 80 mg IV pu sh x1 dose in addition to transdermal nitroglycerin. Patient was referred to the Hospitalist Service for admission. PAST MEDICAL HISTORY: 1. Chronic diastolic congestive heart failure with ejection fraction of 60%-65%. 2. Moderate persistent asthma. 3. Question of chronic obstructive pulmonary disease. 4. Hyperlipidemia. PAST SURGICAL HISTORY: 1. Status post back surgery. 2. Status post colonoscopy. CURRENT MEDICATIONS: Based on the recent discharge on 03/21/2017, 1. Albuterol sulfate 2.5 mg nebulized q.4 hours p.r.n. 2. Pravachol 20 mg p.o. at bedtime. 3. Singulair 10 mg p.o. daily. 4. Hydralazine 25 mg p.o. t.i.d. 5. Prednisone 10 mg p.o. daily. 6. Labetalol 100 mg p.o. b.i.d. 7. Levocetirizine 5 mg p.o. daily. 8. Lasix 20 mg p.o. daily. 9. Guaifenesin ER 1200 mg p.o. b.i.d. 10. Nifedipine 60 mg p.o. at bedtime. 11. DuoNebs 3 mL nebulized q.4-6 hours p.r.n. 12. Aspirin 81 mg p.o. daily. ALLERGIES: No known drug allergies. FAMILY HISTORY: No inheritable diseases per family report. SOCIAL HISTORY: Patient is , accompanied by his and multiple family members in the [facility]. Patient resides in [place], [place]. Retired. No current alcohol, tobacco, or illicit drug use. REVIEW OF SYSTEMS: The following complete review of systems was otherwise negative, except as stated per HPI: Constitutional: Weight loss or gain, ability to conduct usual activities. Skin: Rash, i tching. Eyes: Double vision, pain. ENT/Mouth: Nose bleeding, neck stiffness, pain, tenderness. C ardiovascular: Palpitations, dyspnea on exertion, orthopnea. Respiratory: Shortness of breath, whe ezing, cough, hemoptysis, fever, or night sweats. Gastrointestinal: Poor appetite, abdominal pain, heartburn, nausea, vomiting, constipation, or diarrhea. Genitourinary: Urgency, frequency, dysuria, nocturia. Musculoskeletal: Pain, swelling. Neurologic/Psychiatric: Anxiety, depression. Allergy /Immunologic: Skin rash, bleeding tendency. PHYSICAL EXAMINATION: VITAL SIGNS: On admission blood pressure 168/83, pulse 84, respiratory rate 18, temperature 98.2 deg kiran Fahrenheit, O2 saturation 93% on 1 liter per minute by nasal cannula. GENERAL APPEARANCE: This is a 76-year-old -Eritrean male, alert and oriented x3 in mild-to-mo derate respiratory distress. HEENT: Pupils are equal, round, and reactive to light and accommodation. Extraocular muscles are in tact. No scleral icterus, no conjunctival injection. Nares patent. OP is clear. NECK: Supple, no cervical adenopathy, no thyromegaly, no carotid bruits, no JVD appreciated. Cervic al spine with full active and passive range of motion. LUNGS: Diminished breath sounds in the bases bilaterally. CARDIOVASCULAR: S1, S2 with distant heart sounds. ABDOMEN: Rounded, soft, nontender, nondistended. Bowel sounds are positive in all four quadrants. There is no hepatosplenomegaly, no abdominal bruits, no rebound or guarding appreciated. EXTREMITIES: Pitting edema to the knees bilaterally. Pulses palpable distally at the dorsalis pedis , posterior tibial, and popliteal arteries bilaterally. Capillary refill less than 2 seconds. NEUROLOGIC: Cranial nerves II-XII are grossly intact. No focal or lateralizing signs appreciated. PERTINENT LABORATORY AND X-RAY FINDINGS: Sodium 125, potassium 4.2, chloride 87, CO2 of 36, anion ga p of 6, BUN 36, creatinine 1.28, estimated GFR of 66, glucose ranged between 40 to 86, calcium 8.7, m agnesium 1.8. AST 41, ALT of 32, alkaline phosphatase 56, total CK of 260. Troponin I ranged betwee n 0.245-0.249. BNP 267, previously noted 343 on 03/17/2017, lipase 28. CBC showed a white blood hilario l count of 5.0, hemoglobin 11, hematocrit 35, platelet count 131 with 82% neutrophils. Portable ches t x-ray dated 03/27/2017 showed mild pulmonary vascular prominence. EKG dated 03/27/2017 by my inter pretation shows sinus mechanism with heart rates in the 70s. Attenuated R waves noted in the precord ial leads. Left axis deviation. No acute ST-T wave changes appreciated. ASSESSMENT AND PLAN: 1. Question of acute on chronic diastolic congestive heart failure exacerbation. Patient will be ad mitted to the telemetry unit. We will continue Lasix 40 mg IV q.12 hours. Continue oxygen supplemen tation to maintain O2 saturation greater than or equal to 90%. Recent 2D transthoracic echocardiogra m on 03/18/2017 showed ejection fraction of 60%-65%. 2. Acute on chronic hypoxemic respiratory failure. We will continue oxygen supplementation to maint ain O2 saturations greater than or equal to 90%. Suspect multifactorial respiratory failure with con tributions of asthma/chronic obstructive pulmonary disease and volume overload. 3. Hyponatremia. Appears chronic dating back to 12/2016. We will continue to monitor sodium trend. 4. Chronic kidney disease, stage 3. Avoid nephrotoxic agents and contrast media. Repeat creatinine in the a.m. Continue to monitor overall renal trend. 5. Hypoglycemia. Mild and resolving. Continue to monitor with serial Accu-Cheks. 6. Elevated troponin I. Chronic, after review of the electronic medical record. We will continue to monitor clinical course. No current evidence to suggest acute coronary syndrome. 7. Chronic normocytic anemia. Stable currently. No evidence to suggest acute blood loss. Repeat C BC in the a.m. 8. Asthma/chronic obstructive pulmonary disease. We will continue bronchodilator therapy with DuoNe bs q.4 hours. Add Solu-Medrol 40 mg IV q.6 hours. Start Augmentin 500 mg p.o. b.i.d. Continue oxyg en supplementation to maintain O2 saturation greater than or equal to 90%. Add Dulera 2 puffs inhale d b.i.d. 9. Prophylaxis. Sequential compression devices while in bed. Pepcid 20 mg p.o. b.i.d. 10. Code status is FULL. Surrogate medical decision maker is patient's spouse.
[2017-03-28] MEDS ORDERED: Furosemide 40 MG/4 ML VIAL SLOW IVP SCH ×2 (06:00→08:15)
[2017-03-28 06:21] LABS: Band 3 % (5-11); Hemoglobin 11.1 g/dL (14.0-18.0); Lymphocytes 3 % (21-51); MDiff Complete? YES; Mean Corpuscular HGB CONC 30.9 g/dL (32.0-36.0); Mean Corpuscular Hemoglobin 27.4 pg (27.0-31.0); Mean Corpuscular Volume 88.6 fl (80.0-94.0); Mean Platelet Volume 8.2 fL (7.4-10.4); Monocytes 2 % (0-10); Neutrophil 92 % (42-75); PLT Morphology Comment Appears Adequate; Platelet Count 131 thou/uL (130-400); RBC Distribution Width 12.9 % (11.5-14.5); Red Blood Cell (RBC) Count 4.04 mill/uL (4.70-6.10); White Blood Cell (WBC) Count 4.6 thou/uL (4.8-10.8)
[2017-03-28 06:24] LABS: Anion Gap 11 mmol/L (10-20); BUN (Urea Nitrogen) 35 mg/dL (8.4-25.7); Calc. Creatinine Clearance 53 mL/min (70-130); Calcium 8.7 mg/dL (7.8-10.44); Carbon Dioxide 33 mmol/L (23-31); Chloride 86 mmol/L (98-107); Estimated GFR-MDRD 59; Glucose 171 mg/dL (83-110); Potassium 4.6 mmol/L (3.5-5.1); Sodium 125 mmol/L (136-145)
[2017-03-28] MEDS: Mometasone/Formoterol 120 PUFF INHALER INH SCH ×2 (08:08→19:03)
[2017-03-28] MEDS: Montelukast Sodium 10 mg Tablet PO SCH (08:22)
[2017-03-28] MEDS: Amoxicillin/Potassium Clav 500 MG TAB PO SCH ×2 (08:22→20:55)
[2017-03-28] MEDS: Famotidine 20 MG TAB PO SCH ×2 (08:22→20:55)
[2017-03-28] MEDS: hydrALAZINE 25 MG TAB PO SCH ×3 (08:22→20:55)
[2017-03-28] MEDS: Aspirin 81 mg Enteric Coated Tablet PO SCH (08:22)
[2017-03-28] MEDS: Loratadine 10 MG TAB PO SCH (08:22)
[2017-03-28] MEDS ORDERED: Prevnar 13-Val Conj/PF 0.5 ML SYRINGE IM ONE (09:00)
--- NOTE | 2017-03-28 09:25 | PDOC.PN ---
- Subjective Encounter Start Date: 03/28/17 Encounter Start Time: 09:20 Subjective: f/u for CHF and dyspnea with hypoxemic resp failure. Responding to -: IV Lasix and resp status improved. Still has LE edema and feels weak. - Objective Resuscitation Status: Resuscitation Status FULL:Full Resuscitation MAR Reviewed: Yes Vital Signs & Weight: Vital Signs (12 hours) Temp Pulse Resp BP BP Pulse Ox 03/28/17 08:22 103 H 194/95 H 03/28/17 08:08 103 H 24 H 03/28/17 08:00 98.4 F 107 H 28 H 194/95 H 97 03/28/17 07:45 92 L 03/28/17 07:41 103 H 24 H 03/28/17 06:10 94 24 H 169/84 H 03/28/17 04:12 99.1 F 93 20 153/86 H 99 03/28/17 01:53 90 22 H 99 03/28/17 01:49 24 H 93 L 03/28/17 01:45 97 24 H 85 L 03/28/17 00:27 91 24 H 155/78 H 97 Weight Weight 186 lb 9.6 oz I&O: 03/27/17 03/28/17 03/29/17 06:59 06:59 06:59 Intake Total 510 Output Total 525 Balance -15 Result Diagrams: 03/28/17 04:30 03/28/17 04:30 Additional Labs: Accuchecks 03/28/17 03/27/17 03/27/17 05:34 19:41 16:43 POC Glucose 186 H 108 86 Laboratory Tests 03/27/17 03/27/17 03/27/17 14:22 14:22 14:22 Sodium 125 L Creatinine 1.28 Troponin I 0.249 H B-Natriuretic Peptide 266.8 H 03/27/17 03/27/17 03/28/17 17:37 20:27 04:30 Sodium Creatinine Troponin I 0.245 H 0.245 H B-Natriuretic Peptide 287.9 H EKG Reviewed by me: Yes (Tele - SR in 80's) Phys Exam - Physical Examination alert, responsive, mild resp dyspnea HEENT: PERRLA Neck: no JVD, supple diminished in bases crackles in bases Cardiovascular: RRR Gastrointestinal: soft, non-tender, no distention, positive bowel sounds Musculoskeletal: pulses present, edema present Neurological: normal sensation, moves all 4 limbs Psychiatric: A&O x 3 Skin: normal turgor, cap refill <2 seconds Dx/Plan (1) Acute on chronic respiratory failure with hypoxemia Code(s): J96.21 - ACUTE AND CHRONIC RESPIRATORY FAILURE WITH HYPOXIA Status: Acute Comment: Continue O2 supplementation and treat underlying etiology, currently on 2L/min NC (2) Diastolic CHF, acute on chronic Code(s): I50.33 - ACUTE ON CHRONIC DIASTOLIC (CONGESTIVE) HEART FAILURE Status : Acute Comment: Continue Lasix 40mg IV q8h, follow I/O's, daily weight (3) CKD (chronic kidney disease), stage III Code(s): N18.3 - CHRONIC KIDNEY DISEASE, STAGE 3 (MODERATE) Status: Chronic Comment: Appears at baseline, watch renal function given increased diuretic exposure, avoid nephrotoxic meds and contrast media (4) Hyponatremia Code(s): E87.1 - HYPO-OSMOLALITY AND HYPONATREMIA Status: Chronic Comment: Persistent, monitor trend (5) COPD exacerbation Code(s): J44.1 - CHRONIC OBSTRUCTIVE PULMONARY DISEASE W (ACUTE) EXACERBATION Status: Acute Comment: Continue Duonebs, Dulera, Solumedrol and Augmentin (6) Elevated troponin Code(s): R74.8 - ABNORMAL LEVELS OF OTHER SERUM ENZYMES Status: Chronic Comment: Demand ischemia without ACS, follow clinically - Plan plan discussed w/ family, continue antibiotics, PT/OT, mental health social worker, respiratory therapy, out of bed/ambulate, DVT proph w/SCDs Continue IV Lasix and monitor fluid status -: Continue Duonebs, Dulera, Solumedrol -: Change Lasix 40mg IV q8h -: Add ISS, hold long-acting Levemir given hypoglycemia -: AM lab: BMP * .
[2017-03-28] MEDS ORDERED: Dextrose 50% Abboject 50 ML SYRINGE SLOW IVP PRN (09:40)
[2017-03-28] MEDS ORDERED: Dextrose 5% in Water 1,000 ML IV PRN (09:40)
[2017-03-28] MEDS: HumaLOG 300 UNITS/3 ML VIAL SC PRN ×3 (11:25→21:51)
[2017-03-28] MEDS: Furosemide 40 MG/4 ML VIAL SLOW IVP SCH ×2 (15:32→23:20)
[2017-03-28] MEDS: NIFEdipine XL 60 MG TAB PO SCH (17:27)
[2017-03-28] MEDS: Simvastatin 5 MG TAB PO SCH (20:55)
[2017-03-28] MEDS: Labetalol 100 MG TAB PO SCH (20:55)
[2017-03-29 05:41] LABS: Anion Gap 13 mmol/L (10-20); BUN (Urea Nitrogen) 52 mg/dL (8.4-25.7); Calc. Creatinine Clearance 38 mL/min (70-130); Calcium 8.3 mg/dL (7.8-10.44); Carbon Dioxide 30 mmol/L (23-31); Chloride 86 mmol/L (98-107); Estimated GFR-MDRD 40; Glucose 475 mg/dL (83-110); Potassium 5.2 mmol/L (3.5-5.1); Sodium 124 mmol/L (136-145)
[2017-03-29] MEDS: Benzonatate 100 MG CAP PO PRN (06:29)
[2017-03-29] MEDS: HumaLOG 300 UNITS/3 ML VIAL SC PRN ×4 (06:30→21:35)
[2017-03-29] MEDS: Mometasone/Formoterol 120 PUFF INHALER INH SCH ×2 (08:25→19:10)
[2017-03-29] MEDS: Aspirin 81 mg Enteric Coated Tablet PO SCH (08:26)
[2017-03-29] MEDS: Amoxicillin/Potassium Clav 500 MG TAB PO SCH ×2 (08:26→21:31)
[2017-03-29] MEDS: Montelukast Sodium 10 mg Tablet PO SCH (08:26)
[2017-03-29] MEDS: hydrALAZINE 25 MG TAB PO SCH ×3 (08:26→21:31)
[2017-03-29] MEDS: Famotidine 20 MG TAB PO SCH ×2 (08:26→21:31)
[2017-03-29] MEDS: Labetalol 100 MG TAB PO SCH ×2 (08:26→21:46)
[2017-03-29] MEDS: Loratadine 10 MG TAB PO SCH (08:26)
[2017-03-29] MEDS: Furosemide 40 MG/4 ML VIAL SLOW IVP SCH (08:26)
--- NOTE | 2017-03-29 14:43 | PDOC.PN ---
- Subjective Encounter Start Date: 03/29/17 Encounter Start Time: 14:25 Subjective: f/u CHF and hypoxic resp failure. - Objective Resuscitation Status: Resuscitation Status FULL:Full Resuscitation MAR Reviewed: Yes Vital Signs & Weight: Vital Signs (12 hours) Temp Pulse Pulse Pulse Resp BP BP 03/29/17 12:19 78 77 122/60 104/56 L 03/29/17 12:04 80 16 03/29/17 11:24 97.7 F 82 16 03/29/17 08:26 86 03/29/17 08:25 86 16 03/29/17 08:14 03/29/17 08:10 86 16 03/29/17 07:58 98.9 F 89 18 03/29/17 07:25 98.9 F 89 18 03/29/17 04:00 98.4 F 89 20 03/29/17 02:30 82 18 BP Pulse Ox Pulse Ox Pulse Ox 03/29/17 12:19 98 95 03/29/17 12:04 03/29/17 11:24 112/61 94 L 03/29/17 08:26 03/29/17 08:25 03/29/17 08:14 98 03/29/17 08:10 03/29/17 07:58 96 03/29/17 07:25 136/75 96 03/29/17 04:00 126/65 96 03/29/17 02:30 96 Weight Weight 186 lb 9.6 oz I&O: 03/28/17 03/29/17 03/30/17 06:59 06:59 06:59 Intake Total 510 1596 Output Total 525 1165 Balance -15 431 Result Diagrams: 03/28/17 04:30 03/29/17 05:03 Additional Labs: Accuchecks 03/29/17 03/29/17 03/28/17 11:27 05:52 21:24 POC Glucose 403 H 460 H 387 H 03/28/17 17:13 POC Glucose 333 H Laboratory Tests 03/27/17 03/27/17 03/27/17 14:22 14:22 14:22 Sodium 125 L Potassium BUN Creatinine 1.28 Troponin I 0.249 H B-Natriuretic Peptide 266.8 H 03/27/17 03/27/17 03/28/17 17:37 20:27 04:30 Sodium 125 L Potassium 4.6 BUN 35 H Creatinine 1.41 H Troponin I 0.245 H 0.245 H B-Natriuretic Peptide 03/28/17 04:30 Sodium Potassium BUN Creatinine Troponin I B-Natriuretic Peptide 287.9 H EKG Reviewed by me: Yes (Tele - SR) Phys Exam - Physical Examination Constitutional: NAD alert, responsive HEENT: PERRLA, oral pharynx no lesions Neck: no JVD, supple diminished in bases Cardiovascular: RRR Gastrointestinal: soft, non-tender, no distention, positive bowel sounds BLE edema to prox thighs Musculoskeletal: pulses present, edema present Neurological: normal sensation, moves all 4 limbs Psychiatric: A&O x 3 Skin: normal turgor, cap refill <2 seconds Deviation from normal: edema of glans and shaft of penis, scrotum Dx/Plan (1) Acute on chronic respiratory failure with hypoxemia Code(s): J96.21 - ACUTE AND CHRONIC RESPIRATORY FAILURE WITH HYPOXIA Status: Acute Comment: Continue O2 supplementation and treat underlying etiology, currently on 2L/min NC (2) Diastolic CHF, acute on chronic Code(s): I50.33 - ACUTE ON CHRONIC DIASTOLIC (CONGESTIVE) HEART FAILURE Status : Acute Comment: Continue Lasix 40mg IV q12h, follow I/O's, daily weight (3) CKD (chronic kidney disease), stage III Code(s): N18.3 - CHRONIC KIDNEY DISEASE, STAGE 3 (MODERATE) Status: Chronic Comment: Appears at baseline, watch renal function given increased diuretic exposure, avoid nephrotoxic meds and contrast media (4) Hyponatremia Code(s): E87.1 - HYPO-OSMOLALITY AND HYPONATREMIA Status: Chronic Comment: Persistent, monitor trend (5) COPD exacerbation Code(s): J44.1 - CHRONIC OBSTRUCTIVE PULMONARY DISEASE W (ACUTE) EXACERBATION Status: Acute Comment: Continue Duonebs, Dulera, Solumedrol and Augmentin (6) Elevated troponin Code(s): R74.8 - ABNORMAL LEVELS OF OTHER SERUM ENZYMES Status: Chronic Comment: Demand ischemia without ACS, follow clinically (7) CORNELIA (acute kidney injury) Code(s): N17.9 - ACUTE KIDNEY FAILURE, UNSPECIFIED Status: Acute Comment: Likely multifactorial including IV Lasix, consult Nephrology service, decrease Lasix dosing, avoid nephrotoxic meds and contrast media (8) Diabetes mellitus type II, uncontrolled Code(s): E11.65 - TYPE 2 DIABETES MELLITUS WITH HYPERGLYCEMIA Status: Acute Qualifiers: Diabetes mellitus mcc insulin use: with mcc use Comment: Resume Levemir 25u sc HS, decrease Solumedrol, ISS - Plan plan discussed w/ family, continue antibiotics, PT/OT, social work administrator, respiratory therapy Stable overall -: Place Hull catheter today -: Decrease Lasix 40mg IV q12h -: Consult Nephrology service for CORNELIA -: Start Levemir 25u sc HS * AM lab: BMP * [place] S BID
[2017-03-29] MEDS ORDERED: Senokot S 8.6-50 MG TAB PO SCH (15:15)
[2017-03-29] MEDS: NIFEdipine XL 60 MG TAB PO SCH (17:44)
[2017-03-29] MEDS: Senokot S 8.6-50 MG TAB PO SCH (21:31)
[2017-03-29] MEDS: Simvastatin 5 MG TAB PO SCH (21:31)
[2017-03-29] MEDS: Insulin Detemir 100 UNITS/ML 25 UNITS in Pre-Filled Syringe 1 EACH SC SCH (21:34)
[2017-03-30 05:45] LABS: Anion Gap 11 mmol/L (10-20); BUN (Urea Nitrogen) 58 mg/dL (8.4-25.7); Calc. Creatinine Clearance 38 mL/min (70-130); Calcium 8.4 mg/dL (7.8-10.44); Carbon Dioxide 31 mmol/L (23-31); Chloride 90 mmol/L (98-107); Estimated GFR-MDRD 41; Glucose 180 mg/dL (83-110); Potassium 4.6 mmol/L (3.5-5.1); Sodium 127 mmol/L (136-145)
[2017-03-30] MEDS: Furosemide 40 MG/4 ML VIAL SLOW IVP SCH ×2 (06:20→14:07)
[2017-03-30] MEDS: Mometasone/Formoterol 120 PUFF INHALER INH SCH ×2 (08:07→19:06)
[2017-03-30] MEDS: hydrALAZINE 25 MG TAB PO SCH ×3 (09:27→21:32)
[2017-03-30] MEDS: Famotidine 20 MG TAB PO SCH ×2 (09:27→21:31)
[2017-03-30] MEDS: Amoxicillin/Potassium Clav 500 MG TAB PO SCH ×2 (09:27→21:31)
[2017-03-30] MEDS: Aspirin 81 mg Enteric Coated Tablet PO SCH (09:27)
[2017-03-30] MEDS: Labetalol 100 MG TAB PO SCH ×2 (09:28→21:33)
[2017-03-30] MEDS: HumaLOG 300 UNITS/3 ML VIAL SC PRN ×4 (09:29→21:35)
[2017-03-30] MEDS: Senokot S 8.6-50 MG TAB PO SCH ×2 (09:29→21:31)
[2017-03-30] MEDS: Loratadine 10 MG TAB PO SCH (09:29)
[2017-03-30] MEDS: Montelukast Sodium 10 mg Tablet PO SCH (09:29)
--- NOTE | 2017-03-30 10:46 | PRG ---
DATE OF SERVICE: 03/30/2017 RENAL MEDICINE SUBJECTIVE: Mr. Nelson is a 76-year-old black male with known history of chronic renal failure and w as readmitted for shortness of breath. He was found to have mild CHF as well as possible COPD exacer bation. He is also complaining of leg edema. We are now being reconsulted back for his acute kidney injury on top of his chronic renal failure. Please note Mr. Nelson has received significant amount of diuretics. This was adjusted yesterday due to the slightly higher creatinine. We are here to fur ther evaluate his renal dysfunction. His breathing is noted to be improved. However, please note, he does have a baseline shortness of br eath. His last echo showed normal EF. The possibility of diastolic dysfunction remains. His leg edema could also be explained by right heart failure from his underlying COPD. PHYSICAL EXAMINATION: VITAL SIGNS: Blood pressure is 115/62, heart rate 90, respiratory rate 24, pulse ox 99%. GENERAL: Awake, alert, comfortable, not in overt distress. SKIN: Adequate turgor. HEENT: He has pinkish conjunctivae, anicteric sclerae. NECK: No neck mass, no carotid bruits, no JVD. CHEST: No deformities. LUNGS: Decreased breath sounds. HEART: Normal sinus rhythm. No murmur, no gallops, no rubs. ABDOMEN: Globular, soft, nontender. No masses. EXTREMITIES: Positive for edema, no deformities. MEDICATIONS: Medications of 03/30/2017 was reviewed. LABORATORY DATA: Laboratories of 03/30/2017; white count 4.6, hemoglobin 11.1. Sodium 127, potassiu m 4.6, chloride 90, carbon dioxide 31, BUN 58, creatinine 1.93, glucose 180, and calcium 8.4. ASSESSMENT AND PLAN: 1. Acute kidney injury on top of his chronic renal failure. Consider a superimposed hemodynamically mediated renal dysfunction. The patient has been on diuretics in the past. Recently adjustment milan nwards with diuretics has been made. I will probably continue with its current management. No trinidad es will be made with his diuretic regimen for the meantime. Please note he is on Lasix 40 mg IV q.12 . 2. Hypothermia. Consider delusional hyponatremia. Slowly improving, most recent serum sodium is 12 7 and would suggest we continue free water restriction. 3. Shortness of breath, multifactorial - combination of congestive heart failure and/or chronic obst ructive pulmonary disease exacerbation. He is being optimized with anti-chronic obstructive pulmonar y disease regimen. There is no indication for any dialytic intervention with this patient. Agree wi th current management.
--- NOTE | 2017-03-30 11:43 | PDOC.PN ---
- Subjective Encounter Start Date: 03/30/17 Encounter Start Time: 11:40 Subjective: f/u for diastolic CHF and hypoxic resp failure. Diuresing appropriately -: and tolerating Hull catheter. + BM's. SOB improved. - Objective Resuscitation Status: Resuscitation Status FULL:Full Resuscitation MAR Reviewed: Yes Vital Signs & Weight: Vital Signs (12 hours) Temp Pulse Resp BP BP Pulse Ox 03/30/17 11:08 77 12 03/30/17 09:28 90 115/62 03/30/17 09:27 90 115/62 03/30/17 08:07 90 24 H 03/30/17 07:53 99 03/30/17 07:51 70 16 03/30/17 07:46 98.1 F 80 18 98 03/30/17 07:31 98.1 F 80 18 115/62 98 03/30/17 03:33 98.5 F 80 18 133/71 98 03/30/17 02:19 81 16 100 03/30/17 00:00 98.3 F 81 17 103/55 L 98 Weight Weight 183 lb 3 oz I&O: 03/29/17 03/30/17 03/31/17 06:59 06:59 06:59 Intake Total 1596 840 Output Total 1165 1820 Balance 431 -980 Result Diagrams: 03/28/17 04:30 03/30/17 05:09 Additional Labs: Accuchecks 03/30/17 03/30/17 03/29/17 10:37 05:58 19:50 POC Glucose 183 H 175 H 446 H 03/29/17 03/29/17 17:05 11:27 POC Glucose 390 H 403 H Laboratory Tests 03/27/17 03/27/17 03/27/17 14:22 14:22 14:22 Sodium 125 L Potassium BUN Creatinine 1.28 Troponin I 0.249 H B-Natriuretic Peptide 266.8 H 03/27/17 03/27/17 03/28/17 17:37 20:27 04:30 Sodium 125 L Potassium 4.6 BUN 35 H Creatinine 1.41 H Troponin I 0.245 H 0.245 H B-Natriuretic Peptide 03/28/17 03/29/17 04:30 05:03 Sodium 124 L Potassium BUN Creatinine 1.97 H Troponin I B-Natriuretic Peptide 287.9 H EKG Reviewed by me: Yes (Tele - SR in 80's) Phys Exam - Physical Examination Constitutional: NAD HEENT: PERRLA, oral pharynx no lesions Neck: no JVD, supple diminished in bases o/w clear Cardiovascular: RRR Gastrointestinal: soft, non-tender, no distention, positive bowel sounds Musculoskeletal: pulses present, edema present Neurological: normal sensation, moves all 4 limbs Psychiatric: A&O x 3 Skin: normal turgor, cap refill <2 seconds Deviation from normal: Hull with veronica urine -: Scrotal edema decreased Dx/Plan (1) Acute on chronic respiratory failure with hypoxemia Code(s): J96.21 - ACUTE AND CHRONIC RESPIRATORY FAILURE WITH HYPOXIA Status: Acute Comment: Continue O2 supplementation and treat underlying etiology, currently on 2L/min NC, marked improvement overall, continue diuresis (2) Diastolic CHF, acute on chronic Code(s): I50.33 - ACUTE ON CHRONIC DIASTOLIC (CONGESTIVE) HEART FAILURE Status : Acute Comment: Continue Lasix 40mg IV q12h, follow I/O's, daily weight (3) CKD (chronic kidney disease), stage III Code(s): N18.3 - CHRONIC KIDNEY DISEASE, STAGE 3 (MODERATE) Status: Chronic Comment: Appears at baseline, watch renal function given increased diuretic exposure, avoid nephrotoxic meds and contrast media (4) Hyponatremia Code(s): E87.1 - HYPO-OSMOLALITY AND HYPONATREMIA Status: Chronic Comment: Improved, monitor trend, likely dilutional effect secondary to volume overload (5) COPD exacerbation Code(s): J44.1 - CHRONIC OBSTRUCTIVE PULMONARY DISEASE W (ACUTE) EXACERBATION Status: Acute Comment: Continue Duonebs, Dulera, Solumedrol and Augmentin (6) Elevated troponin Code(s): R74.8 - ABNORMAL LEVELS OF OTHER SERUM ENZYMES Status: Chronic Comment: Demand ischemia without ACS, follow clinically (7) CORNELIA (acute kidney injury) Code(s): N17.9 - ACUTE KIDNEY FAILURE, UNSPECIFIED Status: Acute Comment: Likely multifactorial including IV Lasix, consult Nephrology service, decrease Lasix dosing, avoid nephrotoxic meds and contrast media (8) Diabetes mellitus type II, uncontrolled Code(s): E11.65 - TYPE 2 DIABETES MELLITUS WITH HYPERGLYCEMIA Status: Acute Qualifiers: Diabetes mellitus snf insulin use: with superintendent terminal use Comment: Resume Levemir 25u sc HS, decrease Solumedrol, ISS - Plan plan discussed w/ family, continue antibiotics, PT/OT, 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
[2017-03-30] MEDS: NIFEdipine XL 60 MG TAB PO SCH (17:25)
[2017-03-30] MEDS: Simvastatin 5 MG TAB PO SCH (21:32)
[2017-03-30] MEDS: Insulin Detemir 100 UNITS/ML 25 UNITS in Pre-Filled Syringe 1 EACH SC SCH (21:35)
[2017-03-31 04:52] LABS: #Lymphocytes 0.5 thou/uL (1.20-3.40); #Monocytes 0.4 thou/uL (0.11-0.59); #Neutrophils 3.7 thou/uL (1.40-6.50); %Eosinophils 0.2 % (0.0-10.0); %Lymphocytes 10.4 % (21.0-51.0); %Monocytes 9.5 % (0.0-10.0); %Neutrophils 79.9 % (42.0-75.0); Mean Corpuscular HGB CONC 31.7 g/dL (32.0-36.0); Mean Corpuscular Hemoglobin 27.8 pg (27.0-31.0); Mean Corpuscular Volume 87.8 fl (80.0-94.0); Mean Platelet Volume 7.8 fL (7.4-10.4); Platelet Count 133 thou/uL (130-400); RBC Distribution Width 13.2 % (11.5-14.5); White Blood Cell (WBC) Count 4.6 thou/uL (4.8-10.8)
[2017-03-31 05:06] LABS: Anion Gap 10 mmol/L (10-20); BUN (Urea Nitrogen) 56 mg/dL (8.4-25.7); Calc. Creatinine Clearance 40 mL/min (70-130); Calcium 8.1 mg/dL (7.8-10.44); Carbon Dioxide 33 mmol/L (23-31); Chloride 91 mmol/L (98-107); Estimated GFR-MDRD 44; Glucose 189 mg/dL (83-110); Potassium 4.3 mmol/L (3.5-5.1); Sodium 130 mmol/L (136-145)
[2017-03-31] MEDS: Furosemide 40 MG/4 ML VIAL SLOW IVP SCH ×2 (06:10→14:33)
[2017-03-31 06:29] VITALS: BMI 27.6
[2017-03-31] MEDS: Mometasone/Formoterol 120 PUFF INHALER INH SCH ×2 (07:32→18:35)
--- NOTE | 2017-03-31 08:33 | PRG ---
DATE OF SERVICE: 03/31/2017 SERVICE: Renal Medicine. SUBJECTIVE: Mr. Nelson is a 76-year-old black male who was seen for his acute kidney injury on top o f his chronic renal failure. He was initially diuresed for his CHF. He is breathing better. He als o has concomitant COPD. His diuretics have been adjusted downwards. Creatinine is slightly improved this morning. No new complaints today. PHYSICAL EXAMINATION: VITAL SIGNS: Blood pressure 130/67, heart rate 75, respiratory rate 20, temperature 98, pulse ox 98% . GENERAL: Noted to be awake, sitting comfortable, not in distress. SKIN: Adequate turgor. HEENT: He has pinkish conjunctivae, anicteric sclerae. NECK: No neck mass, no carotid bruits, no JVD. LUNGS: Decreased breath sounds. Occasional wheezing. HEART: Normal sinus rhythm. No murmur, no gallops, no rubs. ABDOMEN: Globular, soft, nontender, no masses. EXTREMITIES: No edema, no deformities. MEDICATIONS: Of 03/31/2017 was reviewed. LABORATORY DATA: Of 03/31/2017, white count 4.6, hemoglobin 10. Sodium 130, potassium 4.3, chloride 91, carbon dioxide 33, BUN 56, creatinine 1.81, glucose 189, calcium 8.1. ASSESSMENT AND PLAN: 1. Acute kidney injury on top of his chronic renal failure, slightly improving creatinine with adjus tment of diuretics. He most likely has a superimposed prerenal azotemia. Please note, he came in wi th congestive heart failure and was diuresed aggressively. Currently on Lasix 40 mg IV q.12 hours, a djust as needed. 2. Borderline anemia. We will continue to observe. 3. Chronic obstructive pulmonary disease/congestive heart failure - on diuretics and on neb treatmen t. Continue supportive care. We will recheck basic metabolic panel and CBC in a.m.
[2017-03-31] MEDS: Labetalol 100 MG TAB PO SCH ×2 (09:25→21:12)
[2017-03-31] MEDS: Amoxicillin/Potassium Clav 500 MG TAB PO SCH ×2 (09:25→21:11)
[2017-03-31] MEDS: Aspirin 81 mg Enteric Coated Tablet PO SCH (09:25)
[2017-03-31] MEDS: Famotidine 20 MG TAB PO SCH ×2 (09:25→21:12)
[2017-03-31] MEDS: hydrALAZINE 25 MG TAB PO SCH ×3 (09:25→21:12)
[2017-03-31] MEDS: Loratadine 10 MG TAB PO SCH (09:26)
[2017-03-31] MEDS: Senokot S 8.6-50 MG TAB PO SCH ×2 (09:26→21:11)
[2017-03-31] MEDS: Montelukast Sodium 10 mg Tablet PO SCH (09:26)
[2017-03-31] MEDS: HumaLOG 300 UNITS/3 ML VIAL SC PRN ×2 (12:44→19:19)
--- NOTE | 2017-03-31 12:51 | PDOC.PN ---
- Subjective Encounter Start Date: 03/31/17 Encounter Start Time: 12:35 Subjective: f/u for CHF, resp failure resolving with IV Lasix. States doing much better -: overall. Still with residual LE edema but improved. Ambulated down hallways - Objective Resuscitation Status: Resuscitation Status FULL:Full Resuscitation MAR Reviewed: Yes Vital Signs & Weight: Vital Signs (12 hours) Temp Pulse Pulse Pulse Resp BP BP 03/31/17 12:11 75 83 146/70 H 03/31/17 10:23 81 16 03/31/17 09:25 74 126/66 03/31/17 08:00 98.0 F 75 20 03/31/17 07:59 98.0 F 75 20 03/31/17 07:34 03/31/17 07:32 77 16 03/31/17 05:00 97.7 F 77 16 03/31/17 02:37 81 12 BP BP Pulse Ox Pulse Ox Pulse Ox 03/31/17 12:11 117/60 96 99 03/31/17 10:23 100 03/31/17 09:25 03/31/17 08:00 98 03/31/17 07:59 130/67 98 03/31/17 07:34 99 03/31/17 07:32 99 03/31/17 05:00 131/73 99 03/31/17 02:37 100 Weight Weight 180 lb 5 oz I&O: 03/30/17 03/31/17 04/01/17 06:59 06:59 06:59 Intake Total 840 1230 Output Total 1820 2505 Balance -980 -0335 Result Diagrams: 03/31/17 03:59 03/31/17 03:59 Additional Labs: Accuchecks 03/31/17 03/31/17 03/30/17 11:41 06:18 20:46 POC Glucose 155 H 143 H 315 H 03/30/17 17:16 POC Glucose 338 H Laboratory Tests 03/27/17 03/27/17 03/27/17 14:22 14:22 14:22 Hgb Hct Sodium 125 L Potassium BUN Creatinine 1.28 Troponin I 0.249 H B-Natriuretic Peptide 266.8 H 03/27/17 03/27/17 03/28/17 17:37 20:27 04:30 Hgb Hct Sodium 125 L Potassium 4.6 BUN 35 H Creatinine 1.41 H Troponin I 0.245 H 0.245 H B-Natriuretic Peptide 03/28/17 03/28/17 03/29/17 04:30 04:30 05:03 Hgb 11.1 L Hct 35.8 L Sodium 124 L Potassium BUN Creatinine 1.97 H Troponin I B-Natriuretic Peptide 287.9 H 03/30/17 05:09 Hgb Hct Sodium 127 L Potassium BUN Creatinine 1.93 H Troponin I B-Natriuretic Peptide EKG Reviewed by me: Yes (Tele - SR ) Phys Exam - Physical Examination Constitutional: NAD Neck: no JVD, supple Respiratory: no wheezing, clear to auscultation bilateral Cardiovascular: RRR Gastrointestinal: soft, non-tender, no distention, positive bowel sounds edema decreased from prior exam 03/30/17 Musculoskeletal: pulses present, edema present Neurological: moves all 4 limbs Psychiatric: A&O x 3 Skin: normal turgor, cap refill <2 seconds Deviation from normal: Scrotum edema decreased, Hull in place with clear urine Dx/Plan (1) Acute on chronic respiratory failure with hypoxemia Code(s): J96.21 - ACUTE AND CHRONIC RESPIRATORY FAILURE WITH HYPOXIA Status: Acute Comment: Continue O2 supplementation and treat underlying etiology, currently on 2L/min NC, marked improvement overall, continue diuresis (2) Diastolic CHF, acute on chronic Code(s): I50.33 - ACUTE ON CHRONIC DIASTOLIC (CONGESTIVE) HEART FAILURE Status : Acute Comment: Continue Lasix 40mg IV q12h, follow I/O's, weight down 11lbs since admit (3) CKD (chronic kidney disease), stage III Code(s): N18.3 - CHRONIC KIDNEY DISEASE, STAGE 3 (MODERATE) Status: Chronic Comment: Appears at baseline, watch renal function given increased diuretic exposure, avoid nephrotoxic meds and contrast media (4) Hyponatremia Code(s): E87.1 - HYPO-OSMOLALITY AND HYPONATREMIA Status: Chronic Comment: Improved, monitor trend, likely dilutional effect secondary to volume overload (5) COPD exacerbation Code(s): J44.1 - CHRONIC OBSTRUCTIVE PULMONARY DISEASE W (ACUTE) EXACERBATION Status: Acute Comment: Continue Duonebs, Dulera, Solumedrol and Augmentin (6) Elevated troponin Code(s): R74.8 - ABNORMAL LEVELS OF OTHER SERUM ENZYMES Status: Chronic Comment: Demand ischemia without ACS, follow clinically (7) CORNELIA (acute kidney injury) Code(s): N17.9 - ACUTE KIDNEY FAILURE, UNSPECIFIED Status: Acute Comment: Likely multifactorial including IV Lasix, consult Nephrology service, decrease Lasix dosing, avoid nephrotoxic meds and contrast media (8) Diabetes mellitus type II, uncontrolled Code(s): E11.65 - TYPE 2 DIABETES MELLITUS WITH HYPERGLYCEMIA Status: Acute Qualifiers: Diabetes mellitus custodial insulin use: with custodial use Comment: Resume Levemir 25u sc HS, labile trend, stop Solumedrol and start Prednisone 10mg daily - Plan plan discussed w/ family, continue antibiotics, PT/OT, respiratory therapy, out of bed/ambulate, DVT proph w/SCDs Stable overall -: Continue IV Lasix another 24-48h then convert to po -: OOB/ambulate -: D/C Solumedrol -: AM lab: BMP * .
[2017-03-31] MEDS: NIFEdipine XL 60 MG TAB PO SCH (19:18)
[2017-03-31] MEDS: Simvastatin 5 MG TAB PO SCH (21:11)
[2017-03-31] MEDS: Insulin Detemir 100 UNITS/ML 25 UNITS in Pre-Filled Syringe 1 EACH SC SCH (21:13)
[2017-04-01 05:45] LABS: #Eosinphils 0.1 thou/uL (0.0-0.7); #Lymphocytes 0.6 thou/uL (1.20-3.40); #Monocytes 0.5 thou/uL (0.11-0.59); #Neutrophils 3.2 thou/uL (1.40-6.50); %Basophils 0.4 % (0.0-1.0); %Eosinophils 1.7 % (0.0-10.0); %Lymphocytes 13.9 % (21.0-51.0); %Monocytes 11.3 % (0.0-10.0); %Neutrophils 72.6 % (42.0-75.0); Hemoglobin 11.4 g/dL (14.0-18.0); Mean Corpuscular HGB CONC 30.9 g/dL (32.0-36.0); Mean Corpuscular Hemoglobin 27.8 pg (27.0-31.0); Mean Corpuscular Volume 89.7 fl (80.0-94.0); Mean Platelet Volume 7.8 fL (7.4-10.4); Platelet Count 139 thou/uL (130-400); RBC Distribution Width 13.4 % (11.5-14.5); White Blood Cell (WBC) Count 4.4 thou/uL (4.8-10.8)
[2017-04-01 05:48] LABS: Anion Gap 11 mmol/L (10-20); BUN (Urea Nitrogen) 53 mg/dL (8.4-25.7); Calc. Creatinine Clearance 43 mL/min (70-130); Calcium 8.4 mg/dL (7.8-10.44); Carbon Dioxide 32 mmol/L (23-31); Chloride 94 mmol/L (98-107); Estimated GFR-MDRD 49; Glucose 63 mg/dL (83-110); Potassium 4.5 mmol/L (3.5-5.1); Sodium 132 mmol/L (136-145)
[2017-04-01] MEDS: Furosemide 40 MG/4 ML VIAL SLOW IVP SCH ×2 (06:30→15:45)
[2017-04-01] MEDS: Mometasone/Formoterol 120 PUFF INHALER INH SCH ×2 (08:03→18:40)
[2017-04-01] MEDS ORDERED: Non-Formulary Item 1 EACH (Prednisone [Prednisone] 10 MG) PO SCH (09:00)
--- NOTE | 2017-04-01 11:02 | PRG ---
DATE OF SERVICE: 04/01/2017 RENAL MEDICINE SUBJECTIVE: Mr. Nelson is doing better. His shortness of breath has not worsened. Please note due to the slightly worsening renal function, his diuretics have been adjusted by his primary care doctor . The patient is currently on furosemide at 40 mg q.12. No other complaints today. PHYSICAL EXAMINATION: VITAL SIGNS: Blood pressure is 122/64, heart rate 82, respiratory rate 19, temperature 98.9, pulse o x 96%. GENERAL: Awake, alert, comfortable, not in distress. Slight dysarthria noted with the patient. LUNGS: Decreased breath sounds. HEART: Normal sinus rhythm. No murmurs, no gallops, no rubs. ABDOMEN: Globular, soft, nontender. Positive for bowel sounds. EXTREMITIES: No edema. MEDICATIONS: Medications of 04/01/2017 was reviewed. LABORATORY DATA: Laboratories of 04/01/2017; white count 4.4, hemoglobin 11.4. Sodium 132, potassiu m 4.5, chloride 94, carbon dioxide 32, BUN 53, creatinine 1.67, glucose 63, calcium 8.4. ASSESSMENT AND PLAN: 1. Acute kidney injury on top of his chronic renal failure, stabilizing renal function. Please note creatinine peaked at 1.97, it is now currently at 1.67. Continue current diuretic regimen. There i s no indication for any dialytic intervention. 2. Shortness of breath, multifactorial - combined chronic obstructive pulmonary disease with congest brendan heart failure. On IV diuretics. Consider changing to p.o. diuretics in the next few days. We w ill recheck basic metabolic panel and CBC and agree with current management.
[2017-04-01] MEDS: Amoxicillin/Potassium Clav 500 MG TAB PO SCH ×2 (11:10→21:27)
[2017-04-01] MEDS: Famotidine 20 MG TAB PO SCH ×2 (11:10→21:32)
[2017-04-01] MEDS: hydrALAZINE 25 MG TAB PO SCH ×3 (11:10→21:27)
[2017-04-01] MEDS: Montelukast Sodium 10 mg Tablet PO SCH (11:13)
[2017-04-01] MEDS: Labetalol 100 MG TAB PO SCH ×2 (11:13→21:30)
[2017-04-01] MEDS: Senokot S 8.6-50 MG TAB PO SCH ×2 (11:14→21:30)
[2017-04-01] MEDS: Aspirin 81 mg Enteric Coated Tablet PO SCH (11:15)
[2017-04-01] MEDS: predniSONE 5 MG TAB PO SCH (11:16)
[2017-04-01] MEDS: Loratadine 10 MG TAB PO SCH (12:00)
[2017-04-01] MEDS ORDERED: Bisacodyl 10 MG SUPP PR PRN (15:53)
[2017-04-01] MEDS ORDERED: Polyethylene Glycol 3350 17 GM Packet PO SCH (16:00)
[2017-04-01] MEDS ORDERED: guaiFENesin ER 600 MG TAB PO SCH (16:00)
--- NOTE | 2017-04-01 17:40 | PDOC.PN ---
- Subjective Encounter Start Date: 04/01/17 Encounter Start Time: 13:00 Patient seen and examined. SOB on mild exertion. No overnight events - Objective Resuscitation Status: Resuscitation Status FULL:Full Resuscitation MAR Reviewed: Yes Vital Signs & Weight: Vital Signs (12 hours) Temp Pulse Pulse Pulse Resp BP BP 04/01/17 15:45 84 158/75 H 04/01/17 14:18 82 20 04/01/17 11:32 97.3 F L 85 18 04/01/17 11:13 66 153/79 H 04/01/17 11:10 84 153/79 H 04/01/17 10:38 66 20 04/01/17 08:51 91 89 135/68 BP BP Pulse Ox Pulse Ox Pulse Ox 04/01/17 15:45 04/01/17 14:18 04/01/17 11:32 153/79 H 98 04/01/17 11:13 04/01/17 11:10 04/01/17 10:38 98 04/01/17 08:51 125/61 94 L 97 Weight Weight 180 lb 8 oz I&O: 03/31/17 04/01/17 04/02/17 06:59 06:59 06:59 Intake Total 1230 620 Output Total 2505 2025 Balance -1275 -1405 Result Diagrams: 04/01/17 04:06 04/01/17 04:06 Additional Labs: Accuchecks 04/01/17 04/01/17 04/01/17 11:16 07:03 06:21 POC Glucose 130 H 72 Less than 35 L* 03/31/17 20:14 POC Glucose 275 H EKG Reviewed by me: Yes (Tele SR) Phys Exam - Physical Examination Constitutional: NAD Respiratory: no wheezing, no rhonchi Scat rales at bases Cardiovascular: RRR, no rub Gastrointestinal: soft, non-tender, positive bowel sounds Musculoskeletal: edema present Neurological: moves all 4 limbs Dx/Plan - Plan DVT proph w/SCDs IMPRESSION: 1. Acute hypoxic resp failure due to Acute on Chronic diastolic heart failure/ Asthma-COPD Exacerbation. 2. DM2 with hypoglycemia 3. Moderate Persistent Asthma on ?Chronic oral Steroids(Patient unsure) 4. CORNELIA/CKD 2 - Nephro following 5. Chronic Anemia/Hyponatremia - improving/HTN/HLD PLAN: * Cont diuretics per Nephro * AM labs * BRYANT posey in 1-2 days * Add Lovenox for DVT prophylaxis * Cont fluid rest/Cardiac Rehab * Change Levemir to 10 units HS Review of Systems - Review of Systems Respiratory: SOB with Excertion. negative: Cough, Dry, Shortness of Breath, Hemoptysis, Pleuritic Pain, Sputum, Wheezing Gastrointestinal: Constipation. negative: Nausea, Vomiting, Abdominal Pain, Diarrhea, Melena, Hematochezia - Medications/Allergies Allergies/Adverse Reactions: Allergies Allergy/AdvReac Type Severity Reaction Status Date / Time No Known Drug Allergies Allergy Verified 03/27/17 20:27 Medications: Current Medications Acetaminophen (Tylenol) 1,000 mg PO Q6H PRN PRN Reason: Headache/Fever or Mild Pain Albuterol/Ipratropium (Duoneb) 3 ml NEB [id number] [facility] Last Admin: 04/01/17 14:18 Dose: 3 ml Amoxicillin/Clavulanate Potassium (Augmentin) 500 mg PO Q12HR [facility] Last Admin: 04/01/17 11:10 Dose: 500 mg Aspirin (Ecotrin) 81 mg PO DAILY [facility] Last Admin: 04/01/17 11:15 Dose: 81 mg Benzonatate (Tessalon) 100 mg PO Q4H PRN PRN Reason: Cough Last Admin: 03/29/17 06:29 Dose: 100 mg Bisacodyl (Dulcolax) 10 mg OH DAILYPRN PRN PRN Reason: Constipation Clonidine (Catapres) 0.1 mg PO Q4H PRN PRN Reason: Systolic BP > 180 Dextrose/Water (Dextrose 50%) 25 gm SLOW IVP PRN PRN PRN Reason: Hypoglycemia Famotidine (Pepcid) 20 mg PO BID [facility] Last Admin: 04/01/17 11:10 Dose: 20 mg Furosemide (Lasix) 40 mg SLOW IVP 0600,1400 [facility] Last Admin: 04/01/17 15:45 Dose: 40 mg Glucagon (Glucagon) 1 mg IM PRN PRN PRN Reason: Hypoglycemia Guaifenesin (Mucinex) 600 mg PO Q12HR [facility] Guaifenesin (Mucinex) 600 mg PO NOW [facility] Stop: 04/01/17 18:00 Last Admin: 04/01/17 17:19 Dose: Not Given Hydralazine HCl (Apresoline) 10 mg SLOW IVP Q4H PRN PRN Reason: Systolic BP > 180 Hydralazine HCl (Apresoline) 25 mg PO TID [facility] Last Admin: 04/01/17 15:45 Dose: 25 mg Dextrose/Water (D5w) 1,000 mls @ 0 mls/hr IV .Q0M PRN; As Directed PRN Reason: Hypoglycemia Insulin Detemir 10 units/ (Miscellaneous Medication) 0.1 mls @ 0 mls/hr SC [facility] Insulin Human Lispro (Humalog) 0 units SC .MILD SLIDING SCALE PRN PRN Reason: Mild Correctional Scale Last Admin: 03/31/17 19:19 Dose: 2 unit Insulin Human Lispro (Humalog) 0 units SC .BEDTIME SLIDING SC PRN PRN Reason: Bedtime Correctional Scale Last Admin: 03/30/17 21:35 Dose: 4 unit Labetalol HCl (Normodyne) 100 mg PO BID [facility] Last Admin: 04/01/17 11:13 Dose: 100 mg Loratadine (Claritin) 10 mg PO DAILY [facility] Last Admin: 04/01/17 12:00 Dose: Not Given Mometasone Furoate/Formoterol Fumar (Dulera 200 Mcg/5 Mcg Inhaler) 2 puff INH BID-RT [facility] Last Admin: 04/01/17 08:03 Dose: 2 puff Montelukast Sodium (Singulair) 10 mg PO DAILY [facility] Last Admin: 04/01/17 11:13 Dose: 10 mg Nifedipine (Procardia Xl) 60 mg PO 1800 [facility] Last Admin: 03/31/17 19:18 Dose: 60 mg Ondansetron HCl (Zofran Odt) 4 mg PO Q6H PRN PRN Reason: Nausea/Vomiting Ondansetron HCl (Zofran) 4 mg IVP Q6H PRN PRN Reason: Nausea/Vomiting Polyethylene Glycol (Miralax) 17 gm PO DAILY [facility] Polyethylene Glycol (Miralax) 17 gm PO NOW [facility] Stop: 04/01/17 18:00 Last Admin: 04/01/17 17:19 Dose: Not Given Prednisone (Prednisone) 10 mg PO DAILY [facility] Last Admin: 04/01/17 11:16 Dose: 10 mg Senna/Docusate Sodium (Senokot S) 1 tab PO BID [facility] Last Admin: 04/01/17 11:14 Dose: 1 tab Simvastatin (Zocor) 10 mg PO HS [place] Last Admin: 03/31/17 21:11 Dose: 10 mg Sodium Chloride (Flush - Normal Saline) 10 ml IVF Q12HR [facility] Last Admin: 04/01/17 11:17 Dose: 10 ml Sodium Chloride (Flush - Normal Saline) 10 ml IVF PRN PRN PRN Reason: Saline Flush Last Admin: 04/01/17 06:30 Dose: 10 ml
[2017-04-01] MEDS: NIFEdipine XL 60 MG TAB PO SCH (18:33)
[2017-04-01] MEDS: HumaLOG 300 UNITS/3 ML VIAL SC PRN (18:35)
[2017-04-01] MEDS ORDERED: Enoxaparin Sodium 30 MG/0.3 ML SYRINGE SC SCH (21:00)
[2017-04-01] MEDS: guaiFENesin ER 600 MG TAB PO SCH (21:30)
[2017-04-01] MEDS: Simvastatin 5 MG TAB PO SCH (21:30)
[2017-04-01] MEDS: Insulin Detemir 100 UNITS/ML 10 UNITS in Pre-Filled Syringe 1 EACH SC SCH (21:31)
[2017-04-02 05:11] LABS: Anion Gap 9 mmol/L (10-20); BUN (Urea Nitrogen) 50 mg/dL (8.4-25.7); Calc. Creatinine Clearance 44 mL/min (70-130); Calcium 8.3 mg/dL (7.8-10.44); Carbon Dioxide 35 mmol/L (23-31); Chloride 93 mmol/L (98-107); Estimated GFR-MDRD 51; Glucose 210 mg/dL (83-110); Magnesium 1.8 mg/dL (1.6-2.6); Potassium 4.5 mmol/L (3.5-5.1); Sodium 132 mmol/L (136-145)
[2017-04-02] MEDS: Furosemide 40 MG/4 ML VIAL SLOW IVP SCH (05:41)
[2017-04-02] MEDS: Benzonatate 100 MG CAP PO PRN (05:46)
[2017-04-02] MEDS: Mometasone/Formoterol 120 PUFF INHALER INH SCH ×2 (06:35→18:27)
--- NOTE | 2017-04-02 08:38 | PRG ---
DATE OF SERVICE: 04/02/2017 SERVICE: Renal Medicine. SUBJECTIVE: Mr. Nelson is a 76-year-old black male with known history of chronic renal failure, mckay porras followed by the Renal Service for his acute kidney injury on top of his chronic renal failure. He was noted to be in CHF with COPD. He has been diuresed. This morning, he tells me he is doing well. He denies any worsening shortness of breath. He also denies any chest pain. He is still currently on IV Lasix. OBJECTIVE: VITAL SIGNS: Blood pressure is 118/63, heart rate 84, respiratory rate 16, temperature 98.7, pulse o x 96%. GENERAL: Noted to be awake, alert, comfortable, not in overt distress. SKIN: Adequate turgor. HEENT: He has pinkish conjunctivae, anicteric sclerae. NECK: No neck mass, no carotid bruits, no JVD. CHEST: No deformities. LUNGS: Decreased breath sounds. No wheezing. HEART: Normal sinus rhythm. No murmur, no gallops, no rubs. ABDOMEN: Globular, soft, nontender, no masses. EXTREMITIES: No edema, no deformities. MEDICATIONS: Of 04/02/2017 was reviewed. LABORATORY DATA: 04/01/2017, white count 4.4, hemoglobin 11.4. On 04/02/2017, sodium 132, potassium 4.5, chloride 93, carbon dioxide 35, BUN 50, creatinine 1.61, glucose 210, calcium 8.3, phosphorus 3 .0. ASSESSMENT AND PLAN: 1. Acute kidney injury on top of his chronic renal failure, stable renal function, doing well. Faye rating current diuretic regimen. There is no indication for any dialytic intervention with this mary ent. Continue current management. 2. Shortness of breath - multifactorial, combination of congestive heart failure and chronic obstruc tive pulmonary disease. He is currently diuresing well. Consider changing IV Lasix to p.o. We will be rechecking a basic met and CBC in a.m.
[2017-04-02] MEDS ORDERED: Furosemide 20 MG TAB PO SCH (09:00)
[2017-04-02] MEDS: Famotidine 20 MG TAB PO SCH ×2 (09:20→20:43)
[2017-04-02] MEDS: Amoxicillin/Potassium Clav 500 MG TAB PO SCH ×2 (09:20→20:43)
[2017-04-02] MEDS: Aspirin 81 mg Enteric Coated Tablet PO SCH (09:20)
[2017-04-02] MEDS: guaiFENesin ER 600 MG TAB PO SCH ×2 (09:21→20:44)
[2017-04-02] MEDS: hydrALAZINE 25 MG TAB PO SCH ×3 (09:21→20:44)
[2017-04-02] MEDS: Furosemide 40 MG TAB PO SCH ×2 (09:21→14:39)
[2017-04-02] MEDS: Labetalol 100 MG TAB PO SCH ×2 (09:22→20:44)
[2017-04-02] MEDS: Montelukast Sodium 10 mg Tablet PO SCH (09:22)
[2017-04-02] MEDS: Loratadine 10 MG TAB PO SCH (09:22)
[2017-04-02] MEDS: predniSONE 5 MG TAB PO SCH (09:22)
[2017-04-02] MEDS: Polyethylene Glycol 3350 17 GM Packet PO SCH (09:24)
[2017-04-02] MEDS: Senokot S 8.6-50 MG TAB PO SCH ×2 (09:24→20:45)
--- NOTE | 2017-04-02 11:10 | PDOC.PN ---
- Subjective Encounter Start Date: 04/02/17 Encounter Start Time: 10:00 Patient seen and examined. Leg edema +, SOB on exertion. No overnight events - Objective Resuscitation Status: Resuscitation Status FULL:Full Resuscitation MAR Reviewed: Yes Vital Signs & Weight: Vital Signs (12 hours) Temp Pulse Resp BP Pulse Ox 04/02/17 10:26 76 16 99 04/02/17 09:22 78 04/02/17 08:00 98.1 F 78 18 124/60 92 L 04/02/17 06:37 84 16 04/02/17 06:35 84 16 04/02/17 04:00 98.7 F 80 18 118/63 96 04/02/17 02:22 80 16 99 04/01/17 23:57 97.6 F 76 18 121/70 100 Weight Weight 178 lb 1.6 oz I&O: 04/01/17 04/02/17 04/03/17 06:59 06:59 06:59 Intake Total 620 1320 Output Total 2024 2149 Balance -1405 -830 Result Diagrams: 04/01/17 04:06 04/02/17 04:06 Additional Labs: Accuchecks 04/02/17 04/01/17 04/01/17 05:54 20:28 17:25 POC Glucose 180 H 282 H 215 H 04/01/17 11:16 POC Glucose 130 H EKG Reviewed by me: Yes (Tele SR) Phys Exam - Physical Examination Constitutional: NAD Respiratory: no wheezing, no rhonchi Cardiovascular: RRR, no rub Gastrointestinal: soft, non-tender, positive bowel sounds Musculoskeletal: edema present Neurological: non-focal, moves all 4 limbs Psychiatric: A&O x 3 Dx/Plan - Plan DVT proph w/lovenox, DVT proph w/SCDs IMPRESSION: 1. Acute hypoxic resp failure due to Acute on Chronic diastolic heart failure/ Asthma-COPD Exacerbation. 2. DM2 with hypoglycemia 3. Moderate Persistent Asthma 4. CORNELIA/CKD 2 - Nephro following 5. Chronic Anemia/Hyponatremia - improving/HTN/HLD PLAN: * Cont diuretics - changed to oral * AM labs * BRYANT posey in AM * Cont fluid rest/Cardiac Rehab * Cont Levemir to 10 units HS * Cont current meds as below Review of Systems - Review of Systems Respiratory: SOB with Excertion. negative: Cough, Dry, Shortness of Breath, Hemoptysis, Pleuritic Pain, Sputum, Wheezing Cardiovascular: edema. negative: chest pain, palpitations, orthopnea, paroxysmal nocturnal dyspnea, light headedness Gastrointestinal: negative: Nausea, Vomiting, Abdominal Pain, Diarrhea, Constipation, Melena, Hematochezia - Medications/Allergies Allergies/Adverse Reactions: Allergies Allergy/AdvReac Type Severity Reaction Status Date / Time No Known Drug Allergies Allergy Verified 03/27/17 20:27 Medications: Current Medications Acetaminophen (Tylenol) 1,000 mg PO Q6H PRN PRN Reason: Headache/Fever or Mild Pain Albuterol/Ipratropium (Duoneb) 3 ml NEB [id number] [facility] Last Admin: 04/02/17 10:26 Dose: 3 ml Amoxicillin/Clavulanate Potassium (Augmentin) 500 mg PO Q12HR [facility] Last Admin: 04/02/17 09:20 Dose: 500 mg Aspirin (Ecotrin) 81 mg PO DAILY [facility] Benzonatate (Tessalon) 100 mg PO Q4H PRN PRN Reason: Cough Last Admin: 04/02/17 05:46 Dose: 100 mg Bisacodyl (Dulcolax) 10 mg NV DAILYPRN PRN PRN Reason: Constipation Clonidine (Catapres) 0.1 mg PO Q4H PRN PRN Reason: Systolic BP > 180 Dextrose/Water (Dextrose 50%) 25 gm SLOW IVP PRN PRN PRN Reason: Hypoglycemia Famotidine (Pepcid) 20 mg PO BID [facility] Last Admin: 04/02/17 09:20 Dose: 20 mg Furosemide (Lasix) 40 mg PO 0900,1400 [facility] Last Admin: 04/02/17 09:21 Dose: 40 mg Glucagon (Glucagon) 1 mg IM PRN PRN PRN Reason: Hypoglycemia Guaifenesin (Mucinex) 600 mg PO Q12HR [facility] Last Admin: 04/02/17 09:21 Dose: 600 mg Hydralazine HCl (Apresoline) 10 mg SLOW IVP Q4H PRN PRN Reason: Systolic BP > 180 Hydralazine HCl (Apresoline) 25 mg PO TID [facility] Last Admin: 04/02/17 09:21 Dose: 25 mg Dextrose/Water (D5w) 1,000 mls @ 0 mls/hr IV .Q0M PRN; As Directed PRN Reason: Hypoglycemia Insulin Detemir 10 units/ (Miscellaneous Medication) 0.1 mls @ 0 mls/hr [facility] Last Admin: 04/01/17 21:31 Dose: 0.1 mls Insulin Human Lispro (Humalog) 0 units SC .MILD SLIDING SCALE PRN PRN Reason: Mild Correctional Scale Last Admin: 04/01/17 18:35 Dose: 3 unit Insulin Human Lispro (Humalog) 0 units SC .BEDTIME SLIDING SC PRN PRN Reason: Bedtime Correctional Scale Last Admin: 03/30/17 21:35 Dose: 4 unit Labetalol HCl (Normodyne) 100 mg PO BID [facility] Last Admin: 04/02/17 09:22 Dose: 100 mg Loratadine (Claritin) 10 mg PO DAILY [facility] Last Admin: 04/02/17 09:22 Dose: 10 mg Mometasone Furoate/Formoterol Fumar (Dulera 200 Mcg/5 Mcg Inhaler) 2 puff INH BID-RT [facility] Last Admin: 04/02/17 06:35 Dose: 2 puff Montelukast Sodium (Singulair) 10 mg PO DAILY [facility] Last Admin: 04/02/17 09:22 Dose: 10 mg Nifedipine (Procardia Xl) 60 mg PO 1800 [facility] Last Admin: 04/01/17 18:33 Dose: 60 mg Ondansetron HCl (Zofran Odt) 4 mg PO Q6H PRN PRN Reason: Nausea/Vomiting Ondansetron HCl (Zofran) 4 mg IVP Q6H PRN PRN Reason: Nausea/Vomiting Polyethylene Glycol (Miralax) 17 gm PO DAILY [facility] Last Admin: 04/02/17 09:24 Dose: 17 gm Prednisone (Prednisone) 10 mg PO DAILY [facility] Last Admin: 04/02/17 09:22 Dose: 10 mg Senna/Docusate Sodium (Senokot S) 1 tab PO BID [facility] Last Admin: 04/02/17 09:24 Dose: Not Given Simvastatin (Zocor) 10 mg PO HS [facility] Last Admin: 04/01/17 21:30 Dose: 10 mg Sodium Chloride (Flush - Normal Saline) 10 ml IVF Q12HR [facility] Last Admin: 04/02/17 09:25 Dose: 10 ml Sodium Chloride (Flush - Normal Saline) 10 ml IVF PRN PRN PRN Reason: Saline Flush Last Admin: 04/02/17 05:41 Dose: 10 ml
[2017-04-02] MEDS: HumaLOG 300 UNITS/3 ML VIAL SC PRN ×2 (16:38→20:45)
[2017-04-02] MEDS: NIFEdipine XL 60 MG TAB PO SCH (18:03)
[2017-04-02] MEDS: Insulin Detemir 100 UNITS/ML 10 UNITS in Pre-Filled Syringe 1 EACH SC SCH (20:45)
[2017-04-02] MEDS: Simvastatin 5 MG TAB PO SCH (20:45)
[2017-04-03 05:33] LABS: Anion Gap 10 mmol/L (10-20); BUN (Urea Nitrogen) 46 mg/dL (8.4-25.7); Calc. Creatinine Clearance 47 mL/min (70-130); Calcium 8.4 mg/dL (7.8-10.44); Carbon Dioxide 35 mmol/L (23-31); Chloride 94 mmol/L (98-107); Estimated GFR-MDRD 55; Glucose 147 mg/dL (83-110); Potassium 4.7 mmol/L (3.5-5.1); Sodium 134 mmol/L (136-145)
[2017-04-03] MEDS: Mometasone/Formoterol 120 PUFF INHALER INH SCH (06:43)
[2017-04-03] MEDS: Montelukast Sodium 10 mg Tablet PO SCH (08:08)
[2017-04-03] MEDS: Labetalol 100 MG TAB PO SCH (08:08)
[2017-04-03] MEDS: predniSONE 5 MG TAB PO SCH (08:09)
[2017-04-03] MEDS: guaiFENesin ER 600 MG TAB PO SCH (08:09)
[2017-04-03] MEDS: Loratadine 10 MG TAB PO SCH (08:09)
[2017-04-03] MEDS: Furosemide 40 MG TAB PO SCH (08:09)
[2017-04-03] MEDS: Amoxicillin/Potassium Clav 500 MG TAB PO SCH (08:09)
[2017-04-03] MEDS: hydrALAZINE 25 MG TAB PO SCH (08:10)
[2017-04-03] MEDS: Famotidine 20 MG TAB PO SCH (08:10)
[2017-04-03] MEDS: Senokot S 8.6-50 MG TAB PO SCH (08:11)
[2017-04-03] MEDS: Polyethylene Glycol 3350 17 GM Packet PO SCH (08:11)
--- NOTE | 2017-04-03 08:30 | PRG ---
DATE OF SERVICE: 04/03/2017 SUBJECTIVE: Mr. Nelson is a 76-year-old black male followed up for his acute kidney injury on top of his chronic renal failure. He had a superimposed prerenal azotemia. This has improved with adjustm ent of his diuretics. He was initially admitted for shortness of breath. His Lasix has now being co nverted from intravenous Lasix to p.o. Lasix. I did discuss the case with the Hospitalist to go galaviz on the current diuretic regimen. He seems to be tolerating this from a renal point of view. H is shortness of breath is much improved. OBJECTIVE: VITAL SIGNS: Blood pressure is 117/64, heart rate is 79, respiratory rate 16, temperature 98.2, puls e ox 100%. GENERAL: Awake, alert, comfortable, not in distress, supine. SKIN: Adequate turgor. HEENT: He has pinkish conjunctivae, anicteric sclerae. NECK: No neck mass, no carotid bruits, no JVD. CHEST: No deformities. LUNGS: Decreased breath sounds. HEART: Normal sinus rhythm. No murmur, no gallops, no rubs. ABDOMEN: Globular, soft, nontender, no masses. EXTREMITIES: No edema, no deformities. MEDICATIONS: 04/03/2017 - Reviewed. LABORATORY: 04/01/2017 - White count 4.4, hemoglobin 11.4. 04/03/2017 - Sodium 134, potassium 4.7, chloride 94, carbon dioxide 35, BUN 46, creatinine 1.49, gluc ose 147, calcium 8.4. ASSESSMENT AND PLAN: 1. Acute kidney injury/chronic renal failure - superimposed prerenal azotemia, stabilizing renal fun ction. Creatinine of 1.49 is now at baseline. Continue current management. Continue current diuret ic regimen. There is no indication for any dialytic intervention. 2. Shortness of breath - multifactorial - congestive heart failure/chronic obstructive pulmonary dis ease - continue current diuretic regimen. Continue current chronic obstructive pulmonary disease reg imen. I agree with plan to discharge this morning. We will follow up this patient [facility].
[2017-04-03] MEDS ORDERED: Aspirin 81 mg Enteric Coated Tablet PO SCH (09:00)
[2017-04-03 09:15] VITALS: TEMP 98.3
[2017-04-03] MEDS: HumaLOG 300 UNITS/3 ML VIAL SC PRN (11:38)
[2017-04-03 12:26] VITALS: BP 123/63
--- NOTE | 2017-04-04 09:05 | DIS ---
DATE OF DISCHARGE: 04/03/2017 DISCHARGE DISPOSITION: Home with [facility]. FOLLOWUP: Follow up with primary care physician, Dr. Blas Dimas in 1 week. Patient was advise d to follow with Dr. Cabezas as well as Dr. Chaidez. ALLERGIES: No known drug allergies. DISCHARGE MEDICATIONS: Lasix 40 mg twice a day, albuterol inhaler as needed, aspirin 81 mg daily, Te ssalon Perles as needed, hydralazine 25 three times daily, Levemir 25 units daily, DuoNebs as needed, labetalol 100 mg b.i.d., levocetirizine 5 mg daily, Singulair 10 mg daily, Procardia-XL 60 mg daily, pravastatin 20 mg at bedtime, prednisone 10 mg daily. The patient does not know whether he takes pr ednisone on a daily basis. A prescription for 10 days was provided. Primary care physician is advis ed to follow. Patient was provided [address] Cabezas was advised to follow up on the Lasix dose after 1 0 days. He was advised to follow up with Dr. Cabezas in next week or so. INPATIENT FINANCIAL SERVICE REP: Nephrology, Dr. Cabezas. BRIEF HOSPITAL COURSE: Patient is a 76-year-old male with chronic diastolic heart failure who was di scharged from this facility on 03/21/2017 with a diagnosis of CHF exacerbation, presented to the hosp ital with worsening shortness of breath and leg swelling. Please refer to the history and physical d ated 03/27/[address] Neri for further details. The patient was admitted to the hospital with the diagnosis of acute on chronic diastolic heart failu re exacerbation. He was seen by Nephrology, Dr. Cabezas. He showed good improvement with IV diuresis. His weight is down to 178 pounds from 191 pounds. He was extensively counseled on fluid restriction. His family was also educated on heart failure. Home health care with [facility] will be resumed. Hi s labs were monitored on a daily basis. He appears stable for discharge. SIGNIFICANT LABORATORY DATA: 1. BNP 287. 2. Troponin 0.245. 3. Creatinine at discharge is 1.49. Sodium on admission was 125, at discharge is 134, albumin on ad mission was 2.9. FINAL DIAGNOSES: 1. Acute hypoxic respiratory failure secondary to acute on chronic diastolic heart failure with asth ma/chronic obstructive pulmonary disease exacerbation. 2. Diabetes mellitus type 2. 3. Episodes of hypoglycemia during the hospitalization, resolved. 4. Moderate persistent asthma. 5. Acute kidney injury on chronic kidney disease stage 2. 6. Chronic anemia. 7. Hyponatremia. 8. Elevated troponins, probably secondary to demand ischemia. 9. Mild protein-calorie malnutrition. 10. Probably not compliant with dietary restrictions. 11. The patient was seen and examined on the day of discharge.
== END 2017-04-03 13:18 | disposition home health service (06) | DRG 291 ==
LOC: ERS 12:45 → 2NO 15:40
PROVIDERS: ADMIT Family Medicine; ATTEND Family Medicine
DX: I13.0 Hypertensive heart and chronic kidney disease with heart failure and stage 1 through stage 4 chronic kidney disease, or unspecified chronic kidney disease (principal); J96.01 Acute respiratory failure with hypoxia; N17.9 Acute kidney failure, unspecified; I50.33 Acute on chronic diastolic (congestive) heart failure; I24.8 Other forms of acute ischemic heart disease; E44.1 Mild protein-calorie malnutrition; E87.1 Hypo-osmolality and hyponatremia; J44.1 Chronic obstructive pulmonary disease with (acute) exacerbation; E11.649 Type 2 diabetes mellitus with hypoglycemia without coma; E11.22 Type 2 diabetes mellitus with diabetic chronic kidney disease; D64.9 Anemia, unspecified; J45.40 Moderate persistent asthma, uncomplicated; N18.2 Chronic kidney disease, stage 2 (mild); Z23 Encounter for immunization; Z68.28 Body mass index [BMI] 28.0-28.9, adult
CPT/HCPCS: 36415; 36416; 71045; 80048; 80053; 81003; 81015; 82553; 83690; 83735; 83880; 84100; 84484; 85007; 85025; 85027; 85610; 85730; 90471; 90670; 93005; 93798; 94640; 96374; A4216; G0009; G8978-GP-CJ; G8979-GP-CJ; G8980-GP-CJ; J1650; J1815; J1940; J2920; J7620

== ENCOUNTER 2017-04-19 08:11 | Inpatient (IN) | payer MEDICARE, MEDICAID ==
--- NOTE | 2017-04-19 09:55 | RAD ---
CHEST 1 VIEW: HISTORY: Dyspnea. Respiratory distress. COMPARISON: 03/27/17. FINDINGS: Cardiac silhouette is magnified and now obscured by dense opacity at the left base. Pleural fluid is likely to obscure the left cardiac margin. There is a spiculated appearance to the left perihilar d ensity. The left lung apex remains unexpectedly lucent. No evidence of pneumothorax. Pulmonary vas culature is engorged on the right. Mediastinum remains midline. IMPRESSION: Rapid development of a large mass-like left perihilar infiltrate and obscuration of the left base wit h pleural fluid. Underling cause is not apparent. Please consider CT of the chest, with IV contrast , for better characterization of a possible left hilar lesion causing obstruction. POS: [facility]
[2017-04-19 10:19] LABS: #Lymphocytes 0.5 thou/uL (1.20-3.40); #Monocytes 0.2 thou/uL (0.11-0.59); #Neutrophils 4.4 thou/uL (1.40-6.50); %Basophils 0.4 % (0.0-1.0); %Eosinophils 0.4 % (0.0-10.0); %Lymphocytes 9.4 % (21.0-51.0); %Monocytes 3.5 % (0.0-10.0); %Neutrophils 86.3 % (42.0-75.0); Hemoglobin 10.7 g/dL (14.0-18.0); Mean Corpuscular HGB CONC 30.1 g/dL (32.0-36.0); Mean Corpuscular Hemoglobin 26.9 pg (27.0-31.0); Mean Corpuscular Volume 89.6 fl (80.0-94.0); Mean Platelet Volume 7.4 fL (7.4-10.4); Platelet Count 301 thou/uL (130-400); RBC Distribution Width 13.3 % (11.5-14.5); Red Blood Cell (RBC) Count 3.96 mill/uL (4.70-6.10); White Blood Cell (WBC) Count 5.1 thou/uL (4.8-10.8)
[2017-04-19] MEDS ORDERED: Piperacillin/Tazobactam 4.5 GM in Sodium Chloride 0.9% 100 ML IVPB SCH (10:30)
[2017-04-19 10:40] LABS: ALT (SGPT) 30 U/L (8-55); AST (SGOT) 25 U/L (5-34); Albumin 2.8 g/dL (3.4-4.8); Alkaline Phosphatase 76 U/L (40-150); Anion Gap 12 mmol/L (10-20); BUN (Urea Nitrogen) 43 mg/dL (8.4-25.7); Bilirubin, Total 0.4 mg/dL (0.2-1.2); Calc. Creatinine Clearance 0 mL/min (70-130); Calcium 9.2 mg/dL (7.8-10.44); Carbon Dioxide 32 mmol/L (23-31); Chloride 91 mmol/L (98-107); Estimated GFR-MDRD 50; Globulin 3.7 g/dL (2.4-3.5); Glucose 272 mg/dL (83-110); Potassium 4.7 mmol/L (3.5-5.1); Protein, Total 6.5 g/dL (5.8-8.1); Sodium 130 mmol/L (136-145)
[2017-04-19 10:42] LABS: CKMB 5.4 ng/mL (0-6.6)
[2017-04-19 10:44] LABS: Troponin I 0.401 ng/mL (< 0.028)
[2017-04-19] MEDS ORDERED: Aspirin 325 MG TAB ONE (10:57)
[2017-04-19] MEDS ORDERED: Enoxaparin Sodium 80 MG/0.8 ML SYRINGE ONE (10:57)
--- NOTE | 2017-04-19 11:41 | CT ---
CT OF THE THORAX WITH IV CONTRAST: INDICATION: Dyspnea with a history of syncopal episode. COMPARISON: Radiographs dated 04/19/17 and 03/27/17. FINDINGS: There is moderate to large left-sided pleural effusion with prominent compressive atelectasis of the left lower lobe and left upper lobe. There is perihilar airspace opacity seen within the upper lobes , lingula, and right middle lobe which may reflect airspace edema. Pneumonia could not be entirely e xcluded. There is a small right pleural effusion. There is mild mucus seen within the distal trache a. There are prominent artery calcifications. There is a small amount of fluid seen within the salvador cardial space. A few shotty-appearing lymph nodes are seen within the mediastinum. There are small cysts seen within the hepatic dome. The adrenal glands and pancreas are unremarkable. There is diff use anasarca. Scattered degenerative and osteoarthritic change. IMPRESSION: 1. Moderate to large left and small right pleural effusions with compressive atelectasis involving t he lower lobes and portions of the left upper lobe. 2. Perihilar airspace opacities may reflect airway edema; however, an atypical infectious process ca nnot be entirely excluded. 3. Diffuse anasarca. 4. Mild pericardial effusion. 5. Hepatic cysts. POS: [facility]
[2017-04-19] MEDS ORDERED: Vancomycin HCl 1.5 GM in Sodium Chloride 0.9% 250 ML 300 ML IVPB SCH (12:00)
[2017-04-19] MEDS ORDERED: ISOVUE-370 76%-LOCM 1 ML ONE (12:57)
[2017-04-19] MEDS ORDERED: Guaifenesin DM 100-10/5 ML UDCUP PO PRN (13:28)
[2017-04-19] MEDS ORDERED: Acetaminophen 325 MG TAB PO PRN (13:28)
[2017-04-19] MEDS ORDERED: Senokot 8.6 MG TAB PO PRN (13:28)
[2017-04-19 13:42] LABS: Troponin I 0.405 ng/mL (< 0.028)
[2017-04-19] MEDS ORDERED: Ondansetron HCl/PF 4 MG/2 ML Vial IVP PRN (14:47)
[2017-04-19] MEDS ORDERED: Ondansetron ODT 4 MG TAB PO PRN (14:47)
--- NOTE | 2017-04-19 14:48 | HP ---
REASON FOR ADMISSION: Acute on chronic congestive heart failure exacerbation with diastolic dysfunct ion, acute respiratory failure due to congestive heart failure exacerbation and demand ischemia due t o congestive heart failure. HISTORY OF PRESENT ILLNESS: The patient gives history of having his home health nurse check on him y . He was having low saturations. She taught him some breathing exercises and the saturation s managed to come up to 92%. He was watched closely in the house and finally she left. This morning , the patient was sitting in a chair and told him to get back into bed to take nebulizers. When he went back to the bed, he apparently passed out. The managed to call EMS. The patient had p assed out for nearly 10 minutes or so and he was coming back to himself by the time EMS arrived. He has expectoration of yellow sputum. No fever. He normally walks by himself per . The patient i s currently placed on BiPAP as his saturations were 50% when EMS arrived. He was given 3 nebulizatio n treatments en route to here. No complaints of chest pain or palpitations. He was recently dischar [facility] 2 weeks back. PAST MEDICAL AND SURGICAL HISTORY: History of chronic kidney disease stage 3-4, history of CHF with diastolic dysfunction, hypertension, dyslipidemia, diabetes mellitus type 2, history of asthma and ba ck surgery prior colonoscopy. CURRENT MEDICATIONS: The patient is on DuoNebs q.6 hourly, labetalol 100 mg p.o. twice daily, Levemi r 25 units subcu q.a.m. and he is also on Humalog insulin pump, Singulair 10 mg p.o. daily, Procardia XL 60 mg p.o. daily, Pravachol 20 mg p.o. at bedtime. He just finished his prednisone taper last . Hydralazine 25 mg p.o. 3 times daily, Lasix 40 mg p.o. twice daily and aspirin 81 mg p.o. sravanthi ly. ALLERGIES: No known drug allergies. PERSONAL HISTORY: He does not abuse alcohol or drugs. No history of smoking. Lives with his . FAMILY HISTORY: Mom at the age of 95 years from old age. Father in his 30s from asthma an d its complications. REVIEW OF SYSTEMS: The following complete review of systems was negative, unless otherwise mentioned in the HPI or below: Constitutional: Weight loss or gain, ability to conduct usual activities. Skin: Rash, itching. Eyes: Double vision, pain. ENT/Mouth: Nose bleeding, neck stiffness, pain, tenderness. Cardiovascular: Palpitations, dyspnea on exertion, orthopnea. Respiratory: Shortness of breath, wheezing, cough, hemoptysis, fever or night sweats. Gastrointestinal: Poor appetite, abdominal pain, heartburn, nausea, vomiting, constipation, or diarr hea. Genitourinary: Urgency, frequency, dysuria, nocturia. Musculoskeletal: Pain, swelling. Neurologic/Psychiatric: Anxiety, depression. Allergy/Immunologic: Skin rash, bleeding tendency. PHYSICAL EXAMINATION: GENERAL: The patient is a 76-year-old male who is currently comfortable on BiPAP and saturating arou nd 94%. VITAL SIGNS: Blood pressure is 170/94, pulse 94 per minute, respiratory rate 22 per minute, temperat ure 98 degrees Fahrenheit and saturating 99% on BiPAP. NECK: Supple. There is elevated JVD. HEENT: Extraocular muscles intact. Pupils are reacting to light. Oral cavity mucous membranes are moist. No exudates or congestion. CARDIOVASCULAR SYSTEM: S1, S2 heard. Tachycardic. No murmur. RESPIRATORY SYSTEM: Air entry 1+ bilateral. Scattered rales plus bilateral. There is decreased air entry left infrascapular area. ABDOMEN: Soft and bowel sounds heard. There is abdominal wall edema. No rigidity or guarding. EXTREMITIES: There is 2+ peripheral edema. No calf tenderness. VASCULAR SYSTEM: Peripheral pulses 1+ bilateral. No ischemic ulcerations or gangrene. CENTRAL NERVOUS SYSTEM: No gross focal deficits seen. The patient is awake and oriented well. PSYCHIATRIC SYSTEM: The patient's mood is euthymic. No hallucinations or delusions. LABORATORY AND IMAGING DATA: EKG done shows normal sinus rhythm at 91 beats per minute. There is po or R-wave progression. There are questionable Q-waves seen in anteroseptal leads. White count of 5, hemoglobin and hematocrit 10 and 35, MCV is 89, platelet count 301 with 86% neutrophils. Sodium 130 , serum bicarbonate 32, BUN 43, creatinine 1.6 and serum glucose 272. Liver enzymes within normal li mits. Albumin is 2.8. Troponin I is 0.4. BNP is 479. Influenza A and B antigens are negative. CT chest shows a large left pleural effusion with left lower lobe atelectasis and there was diffuse dejan sarca and mild pericardial effusion as well. CLINICAL IMPRESSION AND PLAN: The patient will be admitted to intermediate medical care unit for acu te on chronic congestive heart failure exacerbation with diastolic dysfunction. The patient also has acute kidney injury on top of his chronic kidney disease stage 3. The patient also has generalized anasarca. He will be on Lasix 40 mg IV q.12 hourly along with small dose of Coreg. We will continue his BiPAP. We will also continue his labetalol, Singulair, Zocor, hydralazine and aspirin as before . Dr. Yu for Pulmonology and Dr. Chaidez, his hardwood floor installation helper will be consulted as well. No antibi otics will be given for now. I have discussed code status with him and his . They would like to be a DNR. The plan is to gently diurese him and downgrade him to telemetry once he is off BiPAP.
[2017-04-19 15:32] VITALS: BMI 26.6
[2017-04-19] MEDS: hydrALAZINE 25 MG TAB PO SCH ×2 (16:02→20:16)
[2017-04-19] MEDS: Furosemide 40 MG/4 ML VIAL SLOW IVP SCH (16:02)
[2017-04-19] MEDS: Labetalol 100 MG TAB PO SCH (20:16)
[2017-04-19] MEDS: Simvastatin 5 MG TAB PO SCH (20:17)
[2017-04-19] MEDS: Carvedilol 3.125 MG TAB PO SCH (20:17)
--- NOTE | 2017-04-19 21:22 | CON ---
DATE OF CONSULTATION: 04/19/2017 Owen Nelson is a 76-year-old male. He was recently discharged 04/04. He was also discharged on 03/21. He has chronic diastolic heart failure. He has chronic kidney disease. His frequent admissions with complaints of edema and shortness of breath. He subsequently has again been admitted with complaints of shortness of breath and hypoxemia. He was admitted to the IMU on BiPAP. Apparently had syncope prior to admission. Subsequently, he has been admitted to the IMU and appears to be at least clinically stable, although he only gives a limited history. PAST MEDICAL HISTORY: Remarkable for hypertension, lipid disorder, diabetes, asthma, back surgery. FAMILY HISTORY: Negative for lung disease at an early age. There is family history of longevity with mother lived to be 95. His father with asthma when he was young. SOCIAL HISTORY: He is not a smoker or drinker. REVIEW OF SYSTEMS: 10 point system reviewed otherwise negative. PHYSICAL EXAMINATION: GENERAL: He is afebrile, heart rate is 81, respiratory rate is 15, oximetry is 100%. Blood pressure 156/76. HEENT: Pupils reactive. Sclerae is anicteric. NECK: Supple. LUNGS: Remarkable for crackles at his left greater than his right base. HEART: Regular rhythm. ABDOMEN: Soft and nontender. EXTREMITIES: Without asymmetry. LABORATORY AND X-RAY FINDINGS: CT done in the emergency room has been reviewed. He has bilateral effusions, left greater than right. Radiographic evidence of pulmonary edema. He also has evidence of anasarca. IMPRESSION: Chronic diastolic heart failure, combined with chronic kidney disease, now admitted with acute on chronic respiratory failure with hypoxemia requiring noninvasive ventilation, appears to have stabilized with noninvasive ventilation, although obviously prognosis is quite poor given that he has been in the hospital in 2018 more than he has been out of the hospital. I will be happy to follow with the other physicians caring for him. This is a 50 minute consult of which greater than 50% of the time was spent on the unit coordinating care. ISAURA
[2017-04-20 04:26] LABS: #Lymphocytes 0.7 thou/uL (1.20-3.40); #Monocytes 0.3 thou/uL (0.11-0.59); #Neutrophils 2.8 thou/uL (1.40-6.50); %Basophils 0.3 % (0.0-1.0); %Eosinophils 0.4 % (0.0-10.0); %Lymphocytes 18.6 % (21.0-51.0); %Monocytes 8.8 % (0.0-10.0); %Neutrophils 71.9 % (42.0-75.0); Hemoglobin 9.5 g/dL (14.0-18.0); Mean Corpuscular HGB CONC 30.8 g/dL (32.0-36.0); Mean Corpuscular Hemoglobin 27.4 pg (27.0-31.0); Mean Corpuscular Volume 88.8 fl (80.0-94.0); Mean Platelet Volume 7.6 fL (7.4-10.4); Platelet Count 290 thou/uL (130-400); RBC Distribution Width 13.1 % (11.5-14.5); Red Blood Cell (RBC) Count 3.46 mill/uL (4.70-6.10); White Blood Cell (WBC) Count 3.9 thou/uL (4.8-10.8)
[2017-04-20 04:48] LABS: Anion Gap 13 mmol/L (10-20); BUN (Urea Nitrogen) 48 mg/dL (8.4-25.7); Calc. Creatinine Clearance 39 mL/min (70-130); Calcium 8.4 mg/dL (7.8-10.44); Carbon Dioxide 31 mmol/L (23-31); Chloride 93 mmol/L (98-107); Estimated GFR-MDRD 46; Glucose 357 mg/dL (83-110); Potassium 5.1 mmol/L (3.5-5.1); Sodium 132 mmol/L (136-145)
[2017-04-20] MEDS: Furosemide 40 MG/4 ML VIAL SLOW IVP SCH ×2 (05:47→13:56)
[2017-04-20] MEDS ORDERED: Dextrose 5% in Water 1,000 ML IV PRN (05:57)
[2017-04-20] MEDS ORDERED: Dextrose 50% Abboject 50 ML SYRINGE IVP PRN (05:57)
[2017-04-20] MEDS: Insulin Regular 300 UNITS/3 ML VIAL SC PRN (06:08)
--- NOTE | 2017-04-20 07:48 | PDOC.PN ---
- Subjective Encounter Start Date: 04/20/17 Encounter Start Time: 07:46 Subjective: Seen and examined seems to be better - Objective Vital Signs & Weight: Vital Signs (12 hours) Temp Pulse Resp BP BP Pulse Ox 04/20/17 04:00 99.0 F 78 17 133/57 L 100 04/20/17 01:36 79 04/20/17 00:00 99.0 F 72 14 131/58 L 100 04/19/17 20:16 88 168/76 H Weight Weight 176 lb 11.2 oz I&O: 04/19/17 04/20/17 04/21/17 06:59 06:59 06:59 Intake Total 738 Balance 738 Result Diagrams: 04/20/17 03:56 04/20/17 03:56 Additional Labs: Accuchecks 04/20/17 04/19/17 05:52 20:15 POC Glucose 359 H 264 H Phys Exam - Physical Examination Constitutional: NAD HEENT: PERRLA, moist MMs, sclera anicteric, TM's clear, oral pharynx no lesions Neck: no nodes, no JVD, supple, full ROM Respiratory: no wheezing, no rales, no rhonchi Cardiovascular: RRR, no significant murmur, no rub Gastrointestinal: soft, non-tender, no distention, positive bowel sounds Musculoskeletal: pulses present, edema present Dx/Plan (1) CORNELIA (acute kidney injury) Code(s): N17.9 - ACUTE KIDNEY FAILURE, UNSPECIFIED Status: Acute Comment: Likely multifactorial including IV Lasix, consult Nephrology service, decrease Lasix dosing, avoid nephrotoxic meds and contrast media (2) Acute on chronic respiratory failure with hypoxemia Code(s): J96.21 - ACUTE AND CHRONIC RESPIRATORY FAILURE WITH HYPOXIA Status: Acute Comment: Continue O2 supplementation and treat underlying etiology, currently on 2L/min NC, marked improvement overall, continue diuresis (3) Diabetes mellitus type II, uncontrolled Code(s): E11.65 - TYPE 2 DIABETES MELLITUS WITH HYPERGLYCEMIA Status: Acute Qualifiers: Diabetes mellitus [facility] insulin 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 Comment: Resume Levemir 25u sc HS, labile trend, stop Solumedrol and start Prednisone 10mg daily (4) Diastolic CHF, acute on chronic Code(s): I50.33 - ACUTE ON CHRONIC DIASTOLIC (CONGESTIVE) HEART FAILURE Status : Acute Comment: Continue Lasix 40mg IV q12h, follow I/O's, weight down 11lbs since admit (5) CKD (chronic kidney disease), stage III Code(s): N18.3 - CHRONIC KIDNEY DISEASE, STAGE 3 (MODERATE) Status: Chronic Comment: Appears at baseline, watch renal function given increased diuretic exposure, avoid nephrotoxic meds and contrast media (6) Hyponatremia Code(s): E87.1 - HYPO-OSMOLALITY AND HYPONATREMIA Status: Chronic Comment: Improved, monitor trend, likely dilutional effect secondary to volume overload (7) Renal failure (ARF), acute on chronic Code(s): N17.9 - ACUTE KIDNEY FAILURE, UNSPECIFIED; N18.9 - CHRONIC KIDNEY DISEASE, UNSPECIFIED Status: Resolved Qualifiers: Acute renal failure type: unspecified Chronic kidney disease stage: stage 3 (moderate) Qualified Code(s): N17.9 - Acute kidney failure, unspecified; N18.3 - Chronic kidney disease, stage 3 (moderate); N18.3 - Chronic kidney disease, stage 3 (moderate) - Plan plan discussed w/ family, PT/OT, social services analyst, speech therapy, respiratory therapy Diuresis -: Low salt diet -: Evaluate the urine for degree of proteinuria ?Nephrotic syndrome * .
[2017-04-20] MEDS: Carvedilol 3.125 MG TAB PO SCH ×2 (09:28→20:32)
[2017-04-20] MEDS: hydrALAZINE 25 MG TAB PO SCH ×3 (09:28→20:32)
[2017-04-20] MEDS: Labetalol 100 MG TAB PO SCH ×2 (09:28→20:32)
[2017-04-20] MEDS: Famotidine 20 MG TAB PO SCH (09:30)
[2017-04-20] MEDS: Montelukast Sodium 10 mg Tablet PO SCH (09:30)
[2017-04-20] MEDS: Enoxaparin Sodium 30 MG/0.3 ML SYRINGE SC SCH (09:30)
[2017-04-20 10:56] LABS: Creatinine, Urine 79.33 mg/dL (63-166)
--- NOTE | 2017-04-20 13:57 | CON ---
DATE OF CONSULTATION: 04/20/2017 HISTORY OF PRESENT ILLNESS: The patient is a 76-year-old gentleman who presented for recurrent dyspnea and lost consciousness. The patient has a history of congestive heart failure. He was admitted in March of this year with diastolic heart failure. He underwent an echocardiogram which showed that he have normal left ventricular systolic function. The patient has a long history of poorly controlled hypertension and severe left ventricular hypertrophy. The patient states that for the past several days he noted increasing lower extremity swelling and dyspnea. He apparently was doing physical therapy when he temporary lost consciousness. His oxygen level was low. He was transferred for further evaluation. The patient denied having any chest discomfort. PAST MEDICAL HISTORY: 1. Congestive heart failure. 2. Hypertension. 3. Renal. 4. Asthma. 5. History of colonic polyps. PAST SURGICAL HISTORY: Back surgery. SOCIAL HISTORY: Non-smoker. ALLERGIES: None. FAMILY HISTORY: Strong family history of heart disease. REVIEW OF SYSTEMS: Noticeable for increasing coughing. PHYSICAL EXAMINATION: GENERAL: Elderly gentleman, in mild distress. VITAL SIGNS: Blood pressure 168/76 on BiPAP. NECK: Showed jugular venous distention to jaw. LUNGS: Have crackles throughout both lung talavera. HEART: Regular rate and rhythm with a normal S1, S2, 1/6 systolic murmur. ABDOMEN: Distended. EXTREMITIES: Showed severe bilateral edema. NEUROLOGIC: Nonfocal. VASCULAR: Radial pulses 2+. LABORATORY: Sodium 132, potassium 5.1, chloride 93, bicarbonate 31, BUN 48, creatinine 1.76, glucose 357, troponin 0.4. White blood cell count is 3.9, hemoglobin 9.5, hematocrit 30.8, and his platelets are 290. His EKG revealed him to have normal sinus rhythm, nonspecific T-wave abnormality. Chest x-ray revealed cardiomegaly with a large left pleural effusion and diffuse edema. IMPRESSION: 1. Congestive heart failure secondary to diastolic dysfunction. 2. Anasarca. 3. Large pleural effusion. 4. Diabetes mellitus. 5. Hypertension. 6. Chronic renal insufficiency. This unfortunate gentleman presents with anasarca. He has a history of diastolic dysfunction. He may also have nephrotic syndrome. The patient's prognosis is guarded. Agree with discontinuing nifedipine which may be worsening his edema. We would use hydralazine and Isordil to control his blood pressure. The patient's prognosis is very guarded. We will follow this patient with you through his hospitalization. ISAURA
[2017-04-20] MEDS: Isosorbide Dinitrate 20 MG TAB PO SCH ×2 (15:14→20:33)
--- NOTE | 2017-04-20 15:52 | PRG ---
DATE OF SERVICE: 04/20/2017 Mr. Nelson looks better today. His family was feeding him when I came in. OBJECTIVE: VITAL SIGNS: He is afebrile, heart rate 78, respiratory rate is 22. Oximetry is 100% on 2 liters, b lood pressure 140/73, 129/61 this morning. LUNGS: Remarkable for a few rhonchi but for most part clear. HEART: Regular rhythm. ABDOMEN: Soft. EXTREMITIES: Without asymmetry. LABORATORY DATA: White count 3.9, hemoglobin 9.5, platelets 290. Sodium 132, potassium 5.1, chlorid e 93, bicarb 31, BUN 48, creatinine 1.76, yesterday creatinine was 1.63. IMPRESSION: 1. Pneumonia. 2. Respiratory failure, acute, improved off noninvasive ventilation. 3. Hypertension. 4. Lipid disorder. 5. Diabetes. 6. Deconditioning. 7. Asthma. 8. History of back surgery. PLAN: I will repeat radiograph in the morning. He has a history of diastolic dysfunction while his large effusion could be simply a combination of d iastolic dysfunction and underlying pneumonia cannot be ruled out, on antibiotics at least for short term reasonable. He is not allergic to anything, so will treat him with Zosyn. He has a very suppor tive family. We will continue supportive care.
[2017-04-20] MEDS: Piperacillin/Tazobactam 3.375 GM in Sodium Chloride 0.9% 100 ML IVPB SCH (17:50)
[2017-04-20] MEDS: Simvastatin 5 MG TAB PO SCH (20:32)
[2017-04-21] MEDS: Piperacillin/Tazobactam 3.375 GM in Sodium Chloride 0.9% 100 ML IVPB SCH ×5 (00:09→23:24)
[2017-04-21 04:36] LABS: Anion Gap 8 mmol/L (10-20); BUN (Urea Nitrogen) 49 mg/dL (8.4-25.7); Calc. Creatinine Clearance 34 mL/min (70-130); Calcium 8.5 mg/dL (7.8-10.44); Carbon Dioxide 37 mmol/L (23-31); Chloride 94 mmol/L (98-107); Estimated GFR-MDRD 38; Glucose 334 mg/dL (83-110); Potassium 4.7 mmol/L (3.5-5.1); Sodium 134 mmol/L (136-145)
[2017-04-21] MEDS: Furosemide 40 MG/4 ML VIAL SLOW IVP SCH ×2 (05:33→14:47)
--- NOTE | 2017-04-21 07:43 | PDOC.PN ---
- Subjective Encounter Start Date: 04/21/17 Encounter Start Time: 07:42 Subjective: alert, mumbles, no distress - Objective MAR Reviewed: Yes Vital Signs & Weight: Vital Signs (12 hours) Temp Pulse Resp BP BP Pulse Ox 04/21/17 04:00 98.2 F 75 15 126/66 100 04/21/17 00:00 98.4 F 76 16 117/58 L 100 04/20/17 20:39 97.9 F 85 17 135/58 L 100 04/20/17 20:32 88 135/58 L 04/20/17 20:00 98.4 F 76 16 100 Weight Weight 177 lb 12.8 oz I&O: 04/20/17 04/21/17 04/22/17 06:59 06:59 06:59 Intake Total 738 1870 Output Total 1150 Balance 738 720 Result Diagrams: 04/20/17 03:56 04/21/17 03:37 Additional Labs: Accuchecks 04/21/17 04/20/17 04/20/17 05:51 21:03 17:03 POC Glucose 337 H 373 H 307 H 04/20/17 04/20/17 15:33 11:02 POC Glucose 283 H 320 H Radiology Reviewed by me: Yes (cxr- PVC, large L pleural effusion) Phys Exam - Physical Examination Constitutional: NAD Neck: no JVD clear ant, dull L lower chest Gastrointestinal: soft, no distention, positive bowel sounds anasarca Dx/Plan (1) Anasarca Code(s): R60.1 - GENERALIZED EDEMA Status: Acute (2) Acute on chronic respiratory failure with hypoxemia Code(s): J96.21 - ACUTE AND CHRONIC RESPIRATORY FAILURE WITH HYPOXIA Status: Acute Comment: Continue O2 supplementation and treat underlying etiology, currently on 2L/min NC, marked improvement overall, continue diuresis (3) Diabetes mellitus type II, uncontrolled Code(s): E11.65 - TYPE 2 DIABETES MELLITUS WITH HYPERGLYCEMIA Status: Acute Qualifiers: Diabetes mellitus complication status: with kidney complications Diabetes mellitus complication detail: with chronic kidney disease Diabetes mellitus care home insulin use: with first aid teacher use Chronic kidney disease stage: stage 3 (moderate) Qualified Code(s): E11.22 - Type 2 diabetes mellitus with diabetic chronic kidney disease; E11.65 - Type 2 diabetes mellitus with hyperglycemia; E11.65 - Type 2 diabetes mellitus with hyperglycemia; E11.65 - Type 2 diabetes mellitus with hyperglycemia; E11.65 - Type 2 diabetes mellitus with hyperglycemia; N18.3 - Chronic kidney disease, stage 3 (moderate); N18.3 - Chronic kidney disease, stage 3 (moderate); Z79.4 - [facility] (current) use of insulin; Z79.4 - airline reservation agent (current) use of insulin; Z79.4 - airline reservation agent (current ) use of insulin; Z79.4 - airline reservation agent (current) use of insulin Comment: Resume Levemir 25u sc HS, labile trend, stop Solumedrol and start Prednisone 10mg daily (4) Diastolic CHF, acute on chronic Code(s): I50.33 - ACUTE ON CHRONIC DIASTOLIC (CONGESTIVE) HEART FAILURE Status : Acute Comment: Continue Lasix 40mg IV q12h, follow I/O's, weight down 11lbs since admit (5) CKD (chronic kidney disease), stage III Code(s): N18.3 - CHRONIC KIDNEY DISEASE, STAGE 3 (MODERATE) Status: Chronic Comment: Appears at baseline, watch renal function given increased diuretic exposure, avoid nephrotoxic meds and contrast media (6) Elevated troponin Code(s): R74.8 - ABNORMAL LEVELS OF OTHER SERUM ENZYMES Status: Chronic Comment: Demand ischemia without ACS, follow clinically - Plan 24 hr urine for protein -: cont iv furosemide -: difficult case, will discuss with card/ pulmonology -: cont asa, coreg, isordil. no DOMINGA/SHAMIKA - renal failure * .
[2017-04-21] MEDS: Isosorbide Dinitrate 20 MG TAB PO SCH ×3 (09:27→20:28)
[2017-04-21] MEDS: Montelukast Sodium 10 mg Tablet PO SCH (09:28)
[2017-04-21] MEDS: hydrALAZINE 25 MG TAB PO SCH ×3 (09:28→20:28)
[2017-04-21] MEDS: Carvedilol 3.125 MG TAB PO SCH (09:28)
[2017-04-21] MEDS: Famotidine 20 MG TAB PO SCH (09:28)
[2017-04-21] MEDS: Labetalol 100 MG TAB PO SCH ×2 (09:28→20:28)
--- NOTE | 2017-04-21 10:01 | RAD ---
PORTABLE CHEST 1 VIEW: DATE: 04/21/17. TIME: 5:11 a.m. HISTORY: CHF. FINDINGS: Comparison is made with the exam of 04/19/17. The heart size is stable. Bilateral pleural effusions are again seen, left larger than right with ad jacent confluent consolidation/atelectatic change in the left lung. No pneumothoraces are identified . POS: [facility]
[2017-04-21] MEDS: Enoxaparin Sodium 30 MG/0.3 ML SYRINGE SC SCH (10:12)
[2017-04-21] MEDS ORDERED: Heparin 5,000 UNITS/ML VIAL SC SCH (10:30)
--- NOTE | 2017-04-21 12:13 | PRG ---
DATE OF SERVICE: 04/21/2017 Owen Nelson looks a little bit better. He is in no distress. PHYSICAL EXAMINATION: VITAL SIGNS: He is afebrile, heart rate 74, respiratory rate 18, oximetry is 100% on 2 liters, bloo d pressure 102/46. LUNGS: Lungs are still remarkable for mild rhonchi at his bases. HEART: Regular rhythm. ABDOMEN: Soft. LABORATORY: Sodium 134, potassium 4.7, chloride 94, bicarbonate 37, BUN 49, creatinine 2.08. IMPRESSION: 1. Deconditioning. 2. Probable pneumonia. 3. Diastolic dysfunction with large left effusion. 4. Lipid disorder. 5. Diabetes. 6. Asthma. 7. History of back surgery. PLAN: I would continue IV antibiotics another day and switch him to p.o. antibiotics tomorrow. He a ppears to be clinically improving, he has excellent family support. I answered the questions of the family in the room when I rounded on him.
[2017-04-21] MEDS: Pravastatin Sodium 40 MG TAB PO SCH (20:29)
[2017-04-21] MEDS: Heparin 5,000 UNITS/ML VIAL SC SCH (20:29)
[2017-04-22 05:10] LABS: BUN (Urea Nitrogen) 42 mg/dL (8.4-25.7); Calc. Creatinine Clearance 37 mL/min (70-130); Calcium 8.5 mg/dL (7.8-10.44); Estimated GFR-MDRD 42; Glucose 254 mg/dL (83-110)
[2017-04-22 05:19] LABS: Anion Gap 11 mmol/L (10-20); Carbon Dioxide 34 mmol/L (23-31); Chloride 93 mmol/L (98-107); Potassium 4.7 mmol/L (3.5-5.1); Sodium 133 mmol/L (136-145)
[2017-04-22] MEDS: Furosemide 40 MG/4 ML VIAL SLOW IVP SCH (05:46)
[2017-04-22] MEDS: Piperacillin/Tazobactam 3.375 GM in Sodium Chloride 0.9% 100 ML IVPB SCH ×2 (05:46→12:34)
[2017-04-22] MEDS: Heparin 5,000 UNITS/ML VIAL SC SCH ×2 (08:24→20:53)
[2017-04-22] MEDS: Montelukast Sodium 10 mg Tablet PO SCH (08:24)
[2017-04-22] MEDS: Isosorbide Dinitrate 20 MG TAB PO SCH ×3 (08:24→20:53)
[2017-04-22] MEDS: Famotidine 20 MG TAB PO SCH (08:24)
[2017-04-22] MEDS: Labetalol 100 MG TAB PO SCH ×2 (08:24→20:52)
[2017-04-22] MEDS: hydrALAZINE 25 MG TAB PO SCH ×3 (08:24→20:53)
[2017-04-22] MEDS ORDERED: Furosemide 40 MG/4 ML VIAL SLOW IVP SCH ×2 (09:34→09:45)
[2017-04-22 10:14] LABS: Collection Duration 24 hrs; Urine Total Volume 2250 mL (250-2400)
[2017-04-22 10:38] LABS: Protein - 24 Hr 563 mg/24 hr (Less than 300); Protein, Urine 25 mg/dL (1-14)
--- NOTE | 2017-04-22 11:10 | PDOC.PN ---
- Subjective Encounter Start Date: 04/22/17 Encounter Start Time: 11:08 Subjective: alert, no appropriate responce - Objective MAR Reviewed: Yes Vital Signs & Weight: Vital Signs (12 hours) Temp Pulse Resp BP BP Pulse Ox 04/22/17 08:24 81 117/54 L 04/22/17 08:00 99.3 F 79 20 100 04/22/17 07:18 99.3 F 79 20 123/66 100 04/22/17 04:00 98.3 F 74 18 126/63 99 04/21/17 23:23 98.0 F 78 18 127/60 100 Weight Weight 174 lb 2 oz I&O: 04/21/17 04/22/17 04/23/17 06:59 06:59 06:59 Intake Total 1870 2024 Output Total 1150 2300 Balance 720 -276 Result Diagrams: 04/20/17 03:56 04/22/17 04:41 Additional Labs: Accuchecks 04/22/17 04/21/17 04/21/17 05:46 20:28 17:04 POC Glucose 237 H 282 H 277 H 04/21/17 11:09 POC Glucose 263 H Phys Exam - Physical Examination Neck: no JVD post rales Cardiovascular: RRR, no significant murmur Gastrointestinal: soft, positive bowel sounds 2+ anasarca Dx/Plan (1) Anasarca Code(s): R60.1 - GENERALIZED EDEMA Status: Acute (2) Acute on chronic respiratory failure with hypoxemia Code(s): J96.21 - ACUTE AND CHRONIC RESPIRATORY FAILURE WITH HYPOXIA Status: Acute Comment: Continue O2 supplementation and treat underlying etiology, currently on 2L/min NC, marked improvement overall, continue diuresis (3) Diabetes mellitus type II, uncontrolled Code(s): E11.65 - TYPE 2 DIABETES MELLITUS WITH HYPERGLYCEMIA Status: Acute Qualifiers: Diabetes mellitus complication status: with kidney complications Diabetes mellitus complication detail: with chronic kidney disease Diabetes mellitus predatory animal exterminator insulin use: with predatory animal exterminator use Chronic kidney disease stage: stage 3 (moderate) Qualified Code(s): E11.22 - Type 2 diabetes mellitus with diabetic chronic kidney disease; E11.65 - Type 2 diabetes mellitus with hyperglycemia; Z79.4 - [facility] (current) use of insulin; E11.65 - Type 2 diabetes mellitus with hyperglycemia; E11.65 - Type 2 diabetes mellitus with hyperglycemia; E11.65 - Type 2 diabetes mellitus with hyperglycemia; N18.3 - Chronic kidney disease, stage 3 (moderate); N18.3 - Chronic kidney disease, stage 3 (moderate); Z79.4 - [facility] (current) use of insulin; Z79.4 - exterminator (current) use of insulin; Z79.4 - [facility] (current) use of insulin Comment: Resume Levemir 25u sc HS, labile trend, stop Solumedrol and start Prednisone 10mg daily (4) Diastolic CHF, acute on chronic Code(s): I50.33 - ACUTE ON CHRONIC DIASTOLIC (CONGESTIVE) HEART FAILURE Status : Acute Comment: Continue Lasix 40mg IV q12h, follow I/O's, weight down 11lbs since admit (5) CKD (chronic kidney disease), stage III Code(s): N18.3 - CHRONIC KIDNEY DISEASE, STAGE 3 (MODERATE) Status: Chronic Comment: Appears at baseline, watch renal function given increased diuretic exposure, avoid nephrotoxic meds and contrast media (6) Elevated troponin Code(s): R74.8 - ABNORMAL LEVELS OF OTHER SERUM ENZYMES Status: Chronic Comment: Demand ischemia without ACS, follow clinically - Plan increase lasix to iv 80 q12h -: cont apresoline, labetolol, statin -: cont accu/ss/ etc * .
--- NOTE | 2017-04-22 12:33 | PRG ---
DATE OF SERVICE: 04/22/2017 Mr. Nelson is sitting up this morning eating breakfast. He said he is feeling better. PHYSICAL EXAMINATION: VITAL SIGNS: He is afebrile, heart rate 84. Blood pressure 117/54. Oximetry is 96. LUNGS: Remarkable for decreased breath sounds at left base. HEART: Regular rhythm. ABDOMEN: Soft. LABORATORY DATA: Sodium 133, potassium 4.7, chloride 93, bicarb 34, BUN 43, creatinine 1.89, creatin ine was 2.08 yesterday. Intake and output is negative 276. IMPRESSION: 1. Congestive heart failure (diastolic, acute on chronic). 2. Left pleural effusion secondary to diastolic heart failure. 3. ? Pneumonia behind the infusion. 4. Deconditioning and muscle weakness. 5. Chronic kidney disease. 6. Diabetes. PLAN: Transitioning to p.o. antimicrobial therapy, increase his activity. Continue in a monitored bed. He could move out of Intermediate Care Unit in my opinion if the other physicians agree.
[2017-04-22] MEDS: Furosemide 100 MG/10 ML VIAL SLOW IVP SCH (12:34)
[2017-04-22] MEDS: Insulin Regular 300 UNITS/3 ML VIAL SC PRN (20:51)
[2017-04-22] MEDS: Pravastatin Sodium 40 MG TAB PO SCH (20:52)
[2017-04-22] MEDS: Amoxicillin/Potassium Clav 875 MG TAB PO SCH (20:53)
[2017-04-23 04:56] LABS: BUN (Urea Nitrogen) 44 mg/dL (8.4-25.7); Calc. Creatinine Clearance 35 mL/min (70-130); Calcium 8.2 mg/dL (7.8-10.44); Estimated GFR-MDRD 39; Glucose 335 mg/dL (83-110)
[2017-04-23 05:06] LABS: Anion Gap 13 mmol/L (10-20); Carbon Dioxide 34 mmol/L (23-31); Chloride 93 mmol/L (98-107); Potassium 4.4 mmol/L (3.5-5.1); Sodium 136 mmol/L (136-145)
[2017-04-23] MEDS: Insulin Regular 300 UNITS/3 ML VIAL SC PRN ×3 (05:35→21:16)
[2017-04-23] MEDS: Furosemide 100 MG/10 ML VIAL SLOW IVP SCH (05:35)
[2017-04-23] MEDS ORDERED: Furosemide 20 MG TAB PO SCH (09:00)
[2017-04-23] MEDS: Amoxicillin/Potassium Clav 875 MG TAB PO SCH ×2 (09:03→20:31)
[2017-04-23] MEDS: Enoxaparin Sodium 30 MG/0.3 ML SYRINGE SC SCH (09:04)
[2017-04-23] MEDS: Famotidine 20 MG TAB PO SCH (09:05)
[2017-04-23] MEDS: hydrALAZINE 25 MG TAB PO SCH ×3 (09:06→20:32)
[2017-04-23] MEDS: Isosorbide Dinitrate 20 MG TAB PO SCH ×3 (09:06→20:32)
[2017-04-23] MEDS: Labetalol 100 MG TAB PO SCH ×2 (09:06→20:31)
[2017-04-23] MEDS: Montelukast Sodium 10 mg Tablet PO SCH (09:07)
[2017-04-23] MEDS: Furosemide 40 MG TAB PO SCH ×2 (09:25→14:54)
[2017-04-23] MEDS: Heparin 5,000 UNITS/ML VIAL SC SCH (09:26)
--- NOTE | 2017-04-23 09:59 | PDOC.PN ---
- Subjective Encounter Start Date: 04/23/17 Encounter Start Time: 09:57 Subjective: more alert, no sob - Objective MAR Reviewed: Yes Vital Signs & Weight: Vital Signs (12 hours) Temp Pulse Resp BP BP Pulse Ox 04/23/17 09:06 84 122/58 L 04/23/17 08:02 87 16 99 04/23/17 07:40 98.8 F 82 19 122/58 L 98 04/23/17 04:00 82 18 115/59 L 98 04/23/17 03:20 87 16 97 04/22/17 23:18 98.3 F 81 14 115/59 L 96 Weight Weight 173 lb I&O: 04/22/17 04/23/17 04/24/17 06:59 06:59 06:59 Intake Total 2023 1140 Output Total 2300 1350 Balance -276 -210 Result Diagrams: 04/20/17 03:56 04/23/17 04:13 Additional Labs: Accuchecks 04/23/17 04/22/17 04/22/17 05:35 23:37 20:26 POC Glucose 314 H 356 H 484 H 04/22/17 04/22/17 16:29 11:09 POC Glucose 360 H 268 H Phys Exam - Physical Examination Constitutional: NAD Neck: no JVD basilar rales Cardiovascular: RRR, no significant murmur Gastrointestinal: positive bowel sounds Musculoskeletal: edema present Dx/Plan (1) Anasarca Code(s): R60.1 - GENERALIZED EDEMA Status: Acute (2) Acute on chronic respiratory failure with hypoxemia Code(s): J96.21 - ACUTE AND CHRONIC RESPIRATORY FAILURE WITH HYPOXIA Status: Acute Comment: Continue O2 supplementation and treat underlying etiology, currently on 2L/min NC, marked improvement overall, continue diuresis (3) Diabetes mellitus type II, uncontrolled Code(s): E11.65 - TYPE 2 DIABETES MELLITUS WITH HYPERGLYCEMIA Status: Acute Qualifiers: Diabetes mellitus complication status: with kidney complications Diabetes mellitus complication detail: with chronic kidney disease Diabetes mellitus intermodal dispatcher insulin use: with snf use Chronic kidney disease stage: stage 3 (moderate) Qualified Code(s): E11.22 - Type 2 diabetes mellitus with diabetic chronic kidney disease; E11.65 - Type 2 diabetes mellitus with hyperglycemia; Z79.4 - skilled nursing (current) use of insulin; E11.65 - Type 2 diabetes mellitus with hyperglycemia; E11.65 - Type 2 diabetes mellitus with hyperglycemia; E11.65 - Type 2 diabetes mellitus with hyperglycemia; N18.3 - Chronic kidney disease, stage 3 (moderate); N18.3 - Chronic kidney disease, stage 3 (moderate); Z79.4 - skilled nursing (current) use of insulin; Z79.4 - skilled nursing (current) use of insulin; Z79.4 - skilled nursing (current) use of insulin Comment: Resume Levemir 25u sc HS, labile trend, stop Solumedrol and start Prednisone 10mg daily (4) Diastolic CHF, acute on chronic Code(s): I50.33 - ACUTE ON CHRONIC DIASTOLIC (CONGESTIVE) HEART FAILURE Status : Acute Comment: Continue Lasix 40mg IV q12h, follow I/O's, weight down 11lbs since admit (5) CKD (chronic kidney disease), stage III Code(s): N18.3 - CHRONIC KIDNEY DISEASE, STAGE 3 (MODERATE) Status: Chronic Comment: Appears at baseline, watch renal function given increased diuretic exposure, avoid nephrotoxic meds and contrast media (6) Elevated troponin Code(s): R74.8 - ABNORMAL LEVELS OF OTHER SERUM ENZYMES Status: Chronic Comment: Demand ischemia without ACS, follow clinically - Plan cont accu/ss/ start levemir -: cont iv diuresis, renal fcn stable * .
[2017-04-23] MEDS: Insulin Detemir 100 UNITS/ML 10 UNITS in Pre-Filled Syringe 1 EACH SC SCH (10:58)
--- NOTE | 2017-04-23 14:56 | PRG ---
DATE OF SERVICE: 04/23/2017 SUBJECTIVE: Mr. Nelson is clinically unchanged, very comfortable. He ate all of his lunch. OBJECTIVE: VITAL SIGNS: He is afebrile, heart rate is 87, respiratory rate is 16, oximetry is 94, blood pressur e 132/58. LUNGS: Clear except for decreased breath sounds at his left base. LABORATORY DATA: His creatinine is 2.0, it is 1.63 on admission. IMPRESSION: 1. Congestive heart failure secondary to severe hypertrophic cardiomyopathy. 2. Diabetes. 3. Chronic kidney disease. 4. Left pleural effusion, it is likely chronic. PLAN: Palliative care input. We explained to the family that his kidney function may decline with t reatment of his heart failure.
[2017-04-23] MEDS: Pravastatin Sodium 40 MG TAB PO SCH (20:31)
[2017-04-24] MEDS: Labetalol 100 MG TAB PO SCH ×2 (08:25→20:53)
[2017-04-24] MEDS: Famotidine 20 MG TAB PO SCH (08:25)
[2017-04-24] MEDS: Montelukast Sodium 10 mg Tablet PO SCH (08:25)
[2017-04-24] MEDS: Isosorbide Dinitrate 20 MG TAB PO SCH ×3 (08:26→20:54)
[2017-04-24] MEDS: hydrALAZINE 25 MG TAB PO SCH ×3 (08:27→20:54)
[2017-04-24] MEDS: Insulin Regular 300 UNITS/3 ML VIAL SC PRN ×4 (08:27→21:00)
[2017-04-24] MEDS: Furosemide 40 MG TAB PO SCH ×2 (08:27→13:40)
[2017-04-24] MEDS: Enoxaparin Sodium 30 MG/0.3 ML SYRINGE SC SCH (08:27)
[2017-04-24] MEDS: Amoxicillin/Potassium Clav 875 MG TAB PO SCH ×2 (08:27→20:53)
--- NOTE | 2017-04-24 08:30 | PDOC.PN ---
- Subjective Encounter Start Date: 04/24/17 Encounter Start Time: 08:28 Subjective: more alert, no sob - Objective MAR Reviewed: Yes Vital Signs & Weight: Vital Signs (12 hours) Temp Pulse Resp BP BP Pulse Ox 04/24/17 07:04 80 16 100 04/24/17 03:06 99.3 F 81 14 123/63 98 04/24/17 01:25 100 04/24/17 01:23 85 16 100 04/23/17 23:51 99.1 F 82 18 121/62 97 04/23/17 22:10 87 16 93 L 04/23/17 20:32 87 149/74 H 04/23/17 20:31 87 149/74 H Weight Weight 167 lb 12.8 oz I&O: 04/23/17 04/24/17 04/25/17 06:59 06:59 06:59 Intake Total 1140 400 Output Total 1350 2200 Balance -210 -1800 Result Diagrams: 04/20/17 03:56 04/23/17 04:13 Additional Labs: Accuchecks 04/23/17 04/23/17 04/23/17 20:47 16:40 14:44 POC Glucose 330 H 314 H 371 H 04/23/17 10:43 POC Glucose 351 H Phys Exam - Physical Examination Neck: no JVD post rales, clear ant talavera Cardiovascular: RRR, no significant murmur Gastrointestinal: soft, positive bowel sounds Musculoskeletal: edema present Dx/Plan (1) Anasarca Code(s): R60.1 - GENERALIZED EDEMA Status: Acute (2) Acute on chronic respiratory failure with hypoxemia Code(s): J96.21 - ACUTE AND CHRONIC RESPIRATORY FAILURE WITH HYPOXIA Status: Acute Comment: Continue O2 supplementation and treat underlying etiology, currently on 2L/min NC, marked improvement overall, continue diuresis (3) Diabetes mellitus type II, uncontrolled Code(s): E11.65 - TYPE 2 DIABETES MELLITUS WITH HYPERGLYCEMIA Status: Acute Qualifiers: Diabetes mellitus complication status: with kidney complications Diabetes mellitus complication detail: with chronic kidney disease Diabetes mellitus local company intermodal truck driver insulin use: with local company intermodal truck driver use Chronic kidney disease stage: stage 3 (moderate) Qualified Code(s): E11.22 - Type 2 diabetes mellitus with diabetic chronic kidney disease; E11.65 - Type 2 diabetes mellitus with hyperglycemia; Z79.4 - local company intermodal truck driver (current) use of insulin; E11.65 - Type 2 diabetes mellitus with hyperglycemia; E11.65 - Type 2 diabetes mellitus with hyperglycemia; E11.65 - Type 2 diabetes mellitus with hyperglycemia; N18.3 - Chronic kidney disease, stage 3 (moderate); N18.3 - Chronic kidney disease, stage 3 (moderate); Z79.4 - local company intermodal truck driver (current) use of insulin; Z79.4 - local company intermodal truck driver (current) use of insulin; Z79.4 - local company intermodal truck driver (current) use of insulin Comment: Resume Levemir 25u sc HS, labile trend, stop Solumedrol and start Prednisone 10mg daily (4) Diastolic CHF, acute on chronic Code(s): I50.33 - ACUTE ON CHRONIC DIASTOLIC (CONGESTIVE) HEART FAILURE Status : Acute Comment: Continue Lasix 40mg IV q12h, follow I/O's, weight down 11lbs since admit (5) CKD (chronic kidney disease), stage III Code(s): N18.3 - CHRONIC KIDNEY DISEASE, STAGE 3 (MODERATE) Status: Chronic Comment: Appears at baseline, watch renal function given increased diuretic exposure, avoid nephrotoxic meds and contrast media (6) Elevated troponin Code(s): R74.8 - ABNORMAL LEVELS OF OTHER SERUM ENZYMES Status: Chronic Comment: Demand ischemia without ACS, follow clinically - Plan wt down 10#. cont iv lasix -: accu high, increase long acting insulin -: rpt cxr * .
--- NOTE | 2017-04-24 09:00 | RAD ---
PORTABLE CHEST: DATE: 04/24/17. PROVIDED CLINICAL HISTORY: CHF. FINDINGS: Comparison is made with the study dated 04/21/17. The cardiac silhouette is partially visualized and appears enlarged. Bibasilar pleural parenchymal opacity is redemonstrated, appearing similar to the prior study. Prominence of the pulmonary vasculature and pulmonary interstitium persists. Left salvador hilar airspace disease cannot be excluded. There is no evidence for pneumothorax. IMPRESSION: Stable radiographic appearance of the chest. POS: [facility]
[2017-04-24] MEDS: Insulin Detemir 100 UNITS/ML 10 UNITS in Pre-Filled Syringe 1 EACH SC SCH (09:03)
--- NOTE | 2017-04-24 16:43 | PDOC.EVN ---
Event Note - Event Note Event Note: no real cheange in pleural effusions, cont diuresis
[2017-04-24] MEDS: Pravastatin Sodium 40 MG TAB PO SCH (20:55)
[2017-04-25 05:35] LABS: BUN (Urea Nitrogen) 37 mg/dL (8.4-25.7); Calc. Creatinine Clearance 45 mL/min (70-130); Calcium 8.4 mg/dL (7.8-10.44); Estimated GFR-MDRD 55; Glucose 198 mg/dL (83-110)
[2017-04-25 05:45] LABS: Anion Gap 9 mmol/L (10-20); Carbon Dioxide 38 mmol/L (23-31); Chloride 93 mmol/L (98-107); Potassium 4.2 mmol/L (3.5-5.1); Sodium 136 mmol/L (136-145)
[2017-04-25] MEDS: Amoxicillin/Potassium Clav 875 MG TAB PO SCH ×2 (09:28→21:14)
[2017-04-25] MEDS: Famotidine 20 MG TAB PO SCH (09:29)
[2017-04-25] MEDS: Furosemide 40 MG TAB PO SCH ×2 (09:30→14:56)
[2017-04-25] MEDS: Montelukast Sodium 10 mg Tablet PO SCH (09:30)
[2017-04-25] MEDS: Labetalol 100 MG TAB PO SCH ×2 (09:31→21:12)
[2017-04-25] MEDS: hydrALAZINE 25 MG TAB PO SCH ×3 (09:32→21:14)
[2017-04-25] MEDS: Enoxaparin Sodium 30 MG/0.3 ML SYRINGE SC SCH (09:33)
[2017-04-25] MEDS: Isosorbide Dinitrate 20 MG TAB PO SCH ×3 (09:33→21:13)
[2017-04-25] MEDS: Insulin Detemir 100 UNITS/ML 10 UNITS in Pre-Filled Syringe 1 EACH SC SCH (09:34)
--- NOTE | 2017-04-25 11:04 | PDOC.PN ---
- Subjective Encounter Start Date: 04/25/17 Encounter Start Time: 09:00 states his breathing is better today. O2 dropped to 70's when taken off of oxygen - Objective Vital Signs & Weight: Vital Signs (12 hours) Temp Pulse Pulse Pulse Resp BP BP 04/25/17 10:18 100 88 171/79 H 130/64 04/25/17 09:32 85 04/25/17 09:20 98.4 F 90 18 04/25/17 07:42 04/25/17 07:41 85 16 04/25/17 04:00 98 F 79 16 04/25/17 02:27 84 16 BP Pulse Ox Pulse Ox Pulse Ox 04/25/17 10:18 95 95 04/25/17 09:32 04/25/17 09:20 128/60 94 L 04/25/17 07:42 99 04/25/17 07:41 04/25/17 04:00 129/68 97 04/25/17 02:27 100 Weight Weight 169 lb 4.8 oz I&O: 04/24/17 04/25/17 04/26/17 06:59 06:59 06:59 Intake Total 400 1010 Output Total 2200 2100 275 Balance -1800 -1090 -275 Result Diagrams: 04/20/17 03:56 04/25/17 04:19 Additional Labs: Accuchecks 04/25/17 04/24/17 04/24/17 05:42 19:44 15:51 POC Glucose 198 H 338 H 293 H 04/24/17 11:03 POC Glucose 264 H Phys Exam - Physical Examination HEENT: PERRLA, moist MMs, sclera anicteric Neck: no nodes, no JVD, supple coarse breath sounds b/l Cardiovascular: RRR, no significant murmur Gastrointestinal: soft, non-tender, no distention Musculoskeletal: pulses present Psychiatric: normal affect, A&O x 3 Dx/Plan (1) Anasarca Code(s): R60.1 - GENERALIZED EDEMA Status: Acute (2) CORNELIA (acute kidney injury) Code(s): N17.9 - ACUTE KIDNEY FAILURE, UNSPECIFIED Status: Acute Comment: Likely multifactorial including IV Lasix, consult Nephrology service, decrease Lasix dosing, avoid nephrotoxic meds and contrast media (3) Acute on chronic respiratory failure with hypoxemia Code(s): J96.21 - ACUTE AND CHRONIC RESPIRATORY FAILURE WITH HYPOXIA Status: Acute Comment: Continue O2 supplementation and treat underlying etiology, currently on 2L/min NC, marked improvement overall, continue diuresis (4) COPD exacerbation Code(s): J44.1 - CHRONIC OBSTRUCTIVE PULMONARY DISEASE W (ACUTE) EXACERBATION Status: Acute Comment: Continue Duonebs, Dulera, Solumedrol and Augmentin (5) Diabetes mellitus type II, uncontrolled Code(s): E11.65 - TYPE 2 DIABETES MELLITUS WITH HYPERGLYCEMIA Status: Acute Qualifiers: Diabetes mellitus complication status: with kidney complications Diabetes mellitus complication detail: with chronic kidney disease Diabetes mellitus snf insulin use: with intermediate school teacher use Chronic kidney disease stage: stage 3 (moderate) Qualified Code(s): E11.22 - Type 2 diabetes mellitus with diabetic chronic kidney disease; E11.65 - Type 2 diabetes mellitus with hyperglycemia; Z79.4 - manager long term care (current) use of insulin; E11.65 - Type 2 diabetes mellitus with hyperglycemia; E11.65 - Type 2 diabetes mellitus with hyperglycemia; E11.65 - Type 2 diabetes mellitus with hyperglycemia; N18.3 - Chronic kidney disease, stage 3 (moderate); N18.3 - Chronic kidney disease, stage 3 (moderate); Z79.4 - manager long term care (current) use of insulin; Z79.4 - assisted (current) use of insulin; Z79.4 - manager long term care (current) use of insulin Comment: Resume Levemir 25u sc HS, labile trend, stop Solumedrol and start Prednisone 10mg daily (6) Diastolic CHF, acute on chronic Code(s): I50.33 - ACUTE ON CHRONIC DIASTOLIC (CONGESTIVE) HEART FAILURE Status : Acute Comment: Continue Lasix 40mg IV q12h, follow I/O's, weight down 11lbs since admit (7) CKD (chronic kidney disease), stage III Code(s): N18.3 - CHRONIC KIDNEY DISEASE, STAGE 3 (MODERATE) Status: Chronic Comment: Appears at baseline, watch renal function given increased diuretic exposure, avoid nephrotoxic meds and contrast media - Plan cont current plan of care, plan discussed w/ family, continue antibiotics, respiratory therapy * . continue current mgmt continue diuresing patient follow recs from pulmonolgy
[2017-04-25] MEDS: Insulin Regular 300 UNITS/3 ML VIAL SC PRN ×3 (12:22→21:15)
[2017-04-25] MEDS: Pravastatin Sodium 40 MG TAB PO SCH (21:13)
[2017-04-26 05:30] LABS: BUN (Urea Nitrogen) 34 mg/dL (8.4-25.7); Calc. Creatinine Clearance 46 mL/min (70-130); Calcium 8.5 mg/dL (7.8-10.44); Estimated GFR-MDRD 57; Glucose 210 mg/dL (83-110)
[2017-04-26 05:39] LABS: Anion Gap 10 mmol/L (10-20); Carbon Dioxide 36 mmol/L (23-31); Chloride 93 mmol/L (98-107); Potassium 4.2 mmol/L (3.5-5.1); Sodium 135 mmol/L (136-145)
[2017-04-26] MEDS: Insulin Regular 300 UNITS/3 ML VIAL SC PRN ×4 (05:58→21:26)
[2017-04-26] MEDS: Insulin Detemir 100 UNITS/ML 10 UNITS in Pre-Filled Syringe 1 EACH SC SCH (09:20)
[2017-04-26] MEDS: Famotidine 20 MG TAB PO SCH (09:21)
[2017-04-26] MEDS: Isosorbide Dinitrate 20 MG TAB PO SCH ×3 (09:22→21:16)
[2017-04-26] MEDS: Amoxicillin/Potassium Clav 875 MG TAB PO SCH ×2 (09:22→21:16)
[2017-04-26] MEDS: Montelukast Sodium 10 mg Tablet PO SCH (09:22)
[2017-04-26] MEDS: Labetalol 100 MG TAB PO SCH ×2 (09:22→21:18)
[2017-04-26] MEDS: hydrALAZINE 25 MG TAB PO SCH ×3 (09:22→21:16)
[2017-04-26] MEDS: Enoxaparin Sodium 30 MG/0.3 ML SYRINGE SC SCH (09:23)
[2017-04-26] MEDS: Furosemide 40 MG TAB PO SCH ×2 (09:23→13:58)
--- NOTE | 2017-04-26 10:13 | PDOC.PN ---
- Subjective Encounter Start Date: 04/26/17 Encounter Start Time: 08:45 states his breathing is getting better. daughter at bedside during exam - Objective Vital Signs & Weight: Vital Signs (12 hours) Temp Pulse Resp BP Pulse Ox 04/26/17 07:25 98.2 F 81 18 125/65 99 04/26/17 06:12 81 16 99 04/26/17 03:23 85 18 98 04/26/17 00:30 99 04/25/17 22:44 84 18 99 Weight Weight 167 lb 14.183 oz I&O: 04/25/17 04/26/17 04/27/17 06:59 06:59 06:59 Intake Total 1010 325 Output Total 2100 275 Balance -1090 50 Result Diagrams: 04/20/17 03:56 04/26/17 04:58 Additional Labs: Accuchecks 04/26/17 04/25/17 04/25/17 05:58 20:14 16:19 POC Glucose 205 H 246 H 254 H 04/25/17 11:47 POC Glucose 308 H Phys Exam - Physical Examination Constitutional: NAD HEENT: PERRLA, moist MMs Neck: no nodes, no JVD, supple corase breathe sounds b/l Cardiovascular: RRR Gastrointestinal: soft, non-tender Musculoskeletal: pulses present edema b/l-improved Neurological: non-focal, normal sensation, moves all 4 limbs Psychiatric: normal affect Dx/Plan (1) Anasarca Code(s): R60.1 - GENERALIZED EDEMA Status: Acute (2) CORNELIA (acute kidney injury) Code(s): N17.9 - ACUTE KIDNEY FAILURE, UNSPECIFIED Status: Acute Comment: Likely multifactorial including IV Lasix, consult Nephrology service, decrease Lasix dosing, avoid nephrotoxic meds and contrast media (3) Acute on chronic respiratory failure with hypoxemia Code(s): J96.21 - ACUTE AND CHRONIC RESPIRATORY FAILURE WITH HYPOXIA Status: Acute Comment: Continue O2 supplementation and treat underlying etiology, currently on 2L/min NC, marked improvement overall, continue diuresis (4) COPD exacerbation Code(s): J44.1 - CHRONIC OBSTRUCTIVE PULMONARY DISEASE W (ACUTE) EXACERBATION Status: Acute Comment: Continue Duonebs, Dulera, Solumedrol and Augmentin (5) Diabetes mellitus type II, uncontrolled Code(s): E11.65 - TYPE 2 DIABETES MELLITUS WITH HYPERGLYCEMIA Status: Acute Qualifiers: Diabetes mellitus complication status: with kidney complications Diabetes mellitus complication detail: with chronic kidney disease Diabetes mellitus snf insulin use: with snf use Chronic kidney disease stage: stage 3 (moderate) Qualified Code(s): E11.22 - Type 2 diabetes mellitus with diabetic chronic kidney disease; E11.65 - Type 2 diabetes mellitus with hyperglycemia; Z79.4 - [facility] (current) use of insulin; E11.65 - Type 2 diabetes mellitus with hyperglycemia; E11.65 - Type 2 diabetes mellitus with hyperglycemia; E11.65 - Type 2 diabetes mellitus with hyperglycemia; N18.3 - Chronic kidney disease, stage 3 (moderate); N18.3 - Chronic kidney disease, stage 3 (moderate); Z79.4 - [facility] (current) use of insulin; Z79.4 - recreation professor (current) use of insulin; Z79.4 - recreation professor (current) use of insulin Comment: Resume Levemir 25u sc HS, labile trend, stop Solumedrol and start Prednisone 10mg daily (6) Diastolic CHF, acute on chronic Code(s): I50.33 - ACUTE ON CHRONIC DIASTOLIC (CONGESTIVE) HEART FAILURE Status : Acute Comment: Continue Lasix 40mg IV q12h, follow I/O's, weight down 11lbs since admit (7) CKD (chronic kidney disease), stage III Code(s): N18.3 - CHRONIC KIDNEY DISEASE, STAGE 3 (MODERATE) Status: Chronic Comment: Appears at baseline, watch renal function given increased diuretic exposure, avoid nephrotoxic meds and contrast media - Plan cont current plan of care, plan discussed w/ family, PT/OT * . still shortwinded with talking but better diuresing well continue diuresing in hospital for at least one more day PT eval and treat will not be able to wean off of o2 as he is o2 dependent monitor creatnine in AM
--- NOTE | 2017-04-26 18:04 | EKG ---
Test Reason : SOB Blood Pressure : / mmHG Vent. Rate : 091 BPM Atrial Rate : 091 BPM P-R Int : 162 ms QRS Dur : 070 ms QT Int : 358 ms P-R-T Axes : 076 -16 109 degrees QTc Int : 440 ms Normal sinus rhythm with sinus arrhythmia Possible Left atrial enlargement Nonspecific T wave abnormality Abnormal ECG Confirmed by AMANDA BLOOM, OMEGA ([id number]), desk editor DIANA VALLECILLO ([id number]) on 04/26/2017 6:03:22 PM Referred By: Confirmed By:OMEGA PATEL MD
[2017-04-26] MEDS: Pravastatin Sodium 40 MG TAB PO SCH (21:16)
[2017-04-27 05:30] LABS: Anion Gap 7 mmol/L (10-20); BUN (Urea Nitrogen) 32 mg/dL (8.4-25.7); Calc. Creatinine Clearance 53 mL/min (70-130); Calcium 8.4 mg/dL (7.8-10.44); Carbon Dioxide 37 mmol/L (23-31); Chloride 94 mmol/L (98-107); Estimated GFR-MDRD 68; Glucose 98 mg/dL (83-110); Potassium 4.2 mmol/L (3.5-5.1); Sodium 134 mmol/L (136-145)
[2017-04-27] MEDS: hydrALAZINE 25 MG TAB PO SCH ×3 (08:42→20:55)
[2017-04-27] MEDS: Insulin Detemir 100 UNITS/ML 10 UNITS in Pre-Filled Syringe 1 EACH SC SCH (08:46)
[2017-04-27] MEDS: Isosorbide Dinitrate 20 MG TAB PO SCH ×3 (08:46→20:58)
[2017-04-27] MEDS: Furosemide 40 MG TAB PO SCH ×2 (08:46→15:04)
[2017-04-27] MEDS: Enoxaparin Sodium 30 MG/0.3 ML SYRINGE SC SCH (08:46)
[2017-04-27] MEDS: Famotidine 20 MG TAB PO SCH (08:46)
[2017-04-27] MEDS: Montelukast Sodium 10 mg Tablet PO SCH (08:46)
[2017-04-27] MEDS: Amoxicillin/Potassium Clav 875 MG TAB PO SCH ×2 (08:46→20:55)
[2017-04-27] MEDS: Labetalol 100 MG TAB PO SCH ×2 (08:53→20:58)
--- NOTE | 2017-04-27 11:55 | PDOC.PN ---
- Subjective Encounter Start Date: 04/27/17 Encounter Start Time: 10:00 Subjective: no sob, is awake and eating breakfast -: daughter at bedside -: has not amb yet - Objective MAR Reviewed: Yes Vital Signs & Weight: Vital Signs (12 hours) Temp Pulse Pulse Pulse Resp BP BP 04/27/17 10:02 87 18 04/27/17 10:00 93 87 128/74 138/72 04/27/17 08:53 87 04/27/17 08:00 98.4 F 87 16 04/27/17 07:31 98.4 F 87 16 04/27/17 06:31 81 16 04/27/17 02:31 83 16 BP Pulse Ox Pulse Ox Pulse Ox 04/27/17 10:02 96 04/27/17 10:00 92 L 98 04/27/17 08:53 04/27/17 08:00 97 04/27/17 07:31 138/72 97 04/27/17 06:31 98 04/27/17 02:31 98 Weight Weight 180 lb 1 oz I&O: 04/26/17 04/27/17 04/28/17 06:59 06:59 06:59 Intake Total 325 200 Output Total 275 175 Balance 50 25 Result Diagrams: 04/20/17 03:56 04/27/17 04:47 Additional Labs: Accuchecks 04/27/17 04/26/17 04/26/17 06:01 20:52 16:06 POC Glucose 108 214 H 186 H 04/26/17 11:16 POC Glucose 204 H Phys Exam - Physical Examination HEENT: PERRLA, sclera anicteric Neck: no JVD, supple Respiratory: no wheezing rales+ Cardiovascular: RRR, no significant murmur Gastrointestinal: soft, non-tender, positive bowel sounds Musculoskeletal: pulses present, edema present Neurological: non-focal, moves all 4 limbs Dx/Plan (1) Diastolic CHF, acute on chronic Code(s): I50.33 - ACUTE ON CHRONIC DIASTOLIC (CONGESTIVE) HEART FAILURE Status : Acute (2) Anasarca Code(s): R60.1 - GENERALIZED EDEMA Status: Acute (3) Physical deconditioning Code(s): R53.81 - OTHER MALAISE Status: Acute (4) DM type 2 (diabetes mellitus, type 2) Status: Chronic Qualifiers: Diabetes mellitus complication status: with kidney complications Diabetes mellitus complication detail: with chronic kidney disease Diabetes mellitus ferry terminal supervisor insulin use: with senior living use Chronic kidney disease stage: stage 3 (moderate) Qualified Code(s): E11.22 - Type 2 diabetes mellitus with diabetic chronic kidney disease; N18.3 - Chronic kidney disease, stage 3 ( moderate); N18.3 - Chronic kidney disease, stage 3 (moderate); Z79.4 - care home (current) use of insulin; Z79.4 - care home (current) use of insulin; Z79.4 - assistant terminal manager (current) use of insulin; Z79.4 - assistant terminal manager (current) use of insulin (5) COPD (chronic obstructive pulmonary disease) Status: Chronic Qualifiers: COPD type: chronic bronchitis (6) CORNELIA (acute kidney injury) Code(s): N17.9 - ACUTE KIDNEY FAILURE, UNSPECIFIED Status: Acute Comment: resolving (7) Acute on chronic respiratory failure with hypoxemia Code(s): J96.21 - ACUTE AND CHRONIC RESPIRATORY FAILURE WITH HYPOXIA Status: Acute Comment: resolving (8) CKD (chronic kidney disease), stage III Code(s): N18.3 - CHRONIC KIDNEY DISEASE, STAGE 3 (MODERATE) Status: Chronic - Plan on oral lasix bid -: renal function holding up -: oob to chair and ambulate as tolerated with PT -: may dc augmentin in am -: d/w daughter at bedside * . Review of Systems - Medications/Allergies Allergies/Adverse Reactions: Allergies Allergy/AdvReac Type Severity Reaction Status Date / Time No Known Drug Allergies Allergy Verified 03/27/17 20:27 Medications: Current Medications Acetaminophen (Tylenol) 650 mg PO Q4H PRN PRN Reason: Headache/Fever or Pain Albuterol/Ipratropium (Duoneb) 3 ml NEB [id number] [facility] Last Admin: 04/27/17 10:02 Dose: 3 ml Amoxicillin/Clavulanate Potassium (Augmentin) 875 mg PO Q12HR [facility] Last Admin: 04/27/17 08:46 Dose: 875 mg Aspirin (Aspirin Chewable) 81 mg PO DAILY [facility] Last Admin: 04/27/17 08:46 Dose: 81 mg Dextrose/Water (Dextrose 50%) 25 gm IVP PRN PRN PRN Reason: HYPOGLYCEMIA PROTOCOL Enoxaparin Sodium (Lovenox) 30 mg SC 0900 [facility] Last Admin: 04/27/17 08:46 Dose: 30 mg Famotidine (Pepcid) 20 mg PO DAILY [facility] Last Admin: 04/27/17 08:46 Dose: 20 mg Furosemide (Lasix) 40 mg PO 0900,1400 [facility] Last Admin: 04/27/17 08:46 Dose: 40 mg Glucagon (Glucagon) 1 mg IM PRN PRN PRN Reason: HYPOGLYCEMIA PROTOCOL Guaifenesin/Dextromethorphan (Robitussin Dm) 15 ml PO Q4H PRN PRN Reason: Cough Hydralazine HCl (Apresoline) 25 mg PO TID [facility] Last Admin: 04/27/17 08:42 Dose: 25 mg Dextrose/Water (D5w) 1,000 mls @ 0 mls/hr IV INF PRN; As Directed PRN Reason: HYPOGLYCEMIA PROTOCOL Insulin Detemir 10 units/ (Miscellaneous Medication) 0.1 mls @ 0 mls/hr SC QAM [facility] Last Admin: 04/27/17 08:46 Dose: 0.1 mls Insulin Human Regular (Humulin R) 0 units SC .MILD SLIDING PRN; Protocol PRN Reason: MILD SLIDING SCALE Last Admin: 04/26/17 21:26 Dose: 3 unit Isosorbide Dinitrate (Isordil) 20 mg PO TID [facility] Last Admin: 04/27/17 08:46 Dose: 20 mg Labetalol HCl (Normodyne) 50 mg PO BID [facility] Last Admin: 04/27/17 08:53 Dose: 50 mg Montelukast Sodium (Singulair) 10 mg PO DAILY [facility] Last Admin: 04/27/17 08:46 Dose: 10 mg Pravastatin Sodium (Pravachol) 40 mg PO HS [facility] Last Admin: 04/26/17 21:16 Dose: 40 mg Senna (Senokot) 2 tab PO HSPRN PRN PRN Reason: Constipation Last Admin: 04/26/17 21:51 Dose: 2 tab Sodium Chloride (Flush - Normal Saline) 10 ml IVF Q12HR [facility] Last Admin: 04/27/17 08:47 Dose: Not Given Sodium Chloride (Flush - Normal Saline) 10 ml IVF PRN PRN PRN Reason: Saline Flush
[2017-04-27] MEDS: Insulin Regular 300 UNITS/3 ML VIAL SC PRN (12:27)
[2017-04-27] MEDS: Pravastatin Sodium 40 MG TAB PO SCH (20:58)
[2017-04-28 08:52] LABS: Anion Gap 9 mmol/L (10-20); BUN (Urea Nitrogen) 32 mg/dL (8.4-25.7); Calc. Creatinine Clearance 58 mL/min (70-130); Calcium 8.9 mg/dL (7.8-10.44); Carbon Dioxide 36 mmol/L (23-31); Chloride 93 mmol/L (98-107); Estimated GFR-MDRD 68; Glucose 174 mg/dL (83-110); Potassium 4.2 mmol/L (3.5-5.1); Sodium 134 mmol/L (136-145)
[2017-04-28 09:07] LABS: #Eosinphils 0.1 thou/uL (0.0-0.7); #Lymphocytes 1.1 thou/uL (1.20-3.40); #Monocytes 0.6 thou/uL (0.11-0.59); #Neutrophils 3.6 thou/uL (1.40-6.50); %Basophils 0.6 % (0.0-1.0); %Eosinophils 2.5 % (0.0-10.0); %Lymphocytes 19.5 % (21.0-51.0); %Monocytes 10.4 % (0.0-10.0); %Neutrophils 66.9 % (42.0-75.0); Hemoglobin 10.1 g/dL (14.0-18.0); Mean Corpuscular HGB CONC 29.3 g/dL (32.0-36.0); Mean Corpuscular Hemoglobin 26.6 pg (27.0-31.0); Mean Corpuscular Volume 90.8 fl (80.0-94.0); Mean Platelet Volume 7.4 fL (7.4-10.4); Platelet Count 273 thou/uL (130-400); RBC Distribution Width 13.4 % (11.5-14.5); Red Blood Cell (RBC) Count 3.79 mill/uL (4.70-6.10); White Blood Cell (WBC) Count 5.4 thou/uL (4.8-10.8)
[2017-04-28] MEDS: Insulin Detemir 100 UNITS/ML 10 UNITS in Pre-Filled Syringe 1 EACH SC SCH (09:24)
[2017-04-28] MEDS: Montelukast Sodium 10 mg Tablet PO SCH (09:24)
[2017-04-28] MEDS: Isosorbide Dinitrate 20 MG TAB PO SCH ×3 (09:24→21:04)
[2017-04-28] MEDS: hydrALAZINE 25 MG TAB PO SCH ×3 (09:24→21:03)
[2017-04-28] MEDS: Famotidine 20 MG TAB PO SCH (09:24)
[2017-04-28] MEDS: Furosemide 40 MG TAB PO SCH ×2 (09:24→14:58)
[2017-04-28] MEDS: Enoxaparin Sodium 30 MG/0.3 ML SYRINGE SC SCH (09:25)
[2017-04-28] MEDS: Labetalol 100 MG TAB PO SCH ×2 (09:25→21:05)
[2017-04-28] MEDS: Insulin Regular 300 UNITS/3 ML VIAL SC PRN (12:08)
--- NOTE | 2017-04-28 12:19 | PDOC.PN ---
- Subjective Encounter Start Date: 04/28/17 Encounter Start Time: 08:15 Subjective: awake, no sob -: is eating breakfast -: at bedside - Objective MAR Reviewed: Yes Vital Signs & Weight: Vital Signs (12 hours) Temp Pulse Resp BP Pulse Ox 04/28/17 11:11 102 H 20 94 L 04/28/17 09:25 102 H 04/28/17 09:24 102 H 04/28/17 08:00 98.2 F 102 H 18 160/75 H 93 L 04/28/17 07:06 85 20 95 04/28/17 02:42 95 Weight Weight 183 lb 2 oz I&O: 04/27/17 04/28/17 04/29/17 06:59 06:59 06:59 Intake Total 200 240 480 Output Total 175 800 Balance 25 -560 480 Result Diagrams: 04/28/17 08:23 04/28/17 08:23 Additional Labs: Accuchecks 04/28/17 04/28/17 04/27/17 10:42 05:56 20:09 POC Glucose 204 H 145 H 172 H 04/27/17 04/27/17 16:10 11:06 POC Glucose 145 H 184 H Phys Exam - Physical Examination HEENT: PERRLA, moist MMs Neck: no JVD, supple Respiratory: no wheezing, no rales Cardiovascular: RRR, no significant murmur Gastrointestinal: soft, non-tender, positive bowel sounds Musculoskeletal: pulses present, edema present Neurological: non-focal, moves all 4 limbs Psychiatric: A&O x 3 Dx/Plan (1) Diastolic CHF, acute on chronic Code(s): I50.33 - ACUTE ON CHRONIC DIASTOLIC (CONGESTIVE) HEART FAILURE Status : Acute (2) Anasarca Code(s): R60.1 - GENERALIZED EDEMA Status: Acute (3) Physical deconditioning Code(s): R53.81 - OTHER MALAISE Status: Acute (4) DM type 2 (diabetes mellitus, type 2) Status: Chronic Qualifiers: Diabetes mellitus complication status: with kidney complications Diabetes mellitus complication detail: with chronic kidney disease Diabetes mellitus fpc insulin use: with fpc use Chronic kidney disease stage: stage 3 (moderate) Qualified Code(s): E11.22 - Type 2 diabetes mellitus with diabetic chronic kidney disease; N18.3 - Chronic kidney disease, stage 3 ( moderate); N18.3 - Chronic kidney disease, stage 3 (moderate); Z79.4 - nursing home (current) use of insulin; Z79.4 - terminal worker (current) use of insulin; Z79.4 - nursing home (current) use of insulin; Z79.4 - nursing home (current) use of insulin (5) COPD (chronic obstructive pulmonary disease) Status: Chronic Qualifiers: COPD type: chronic bronchitis (6) CORNELIA (acute kidney injury) Code(s): N17.9 - ACUTE KIDNEY FAILURE, UNSPECIFIED Status: Acute Comment: resolving (7) Acute on chronic respiratory failure with hypoxemia Code(s): J96.21 - ACUTE AND CHRONIC RESPIRATORY FAILURE WITH HYPOXIA Status: Acute Comment: resolving (8) CKD (chronic kidney disease), stage III Code(s): N18.3 - CHRONIC KIDNEY DISEASE, STAGE 3 (MODERATE) Status: Chronic - Plan has deconditioning, will need swing bed -: d/w at bedside -: on oral lasix bid -: is eating better now -: PT to mobilize more, he normally amb inside house before hosp * .
[2017-04-28] MEDS ORDERED: Bisacodyl 10 MG SUPP PR PRN (15:58)
[2017-04-28] MEDS ORDERED: Fleet Enema 133 ML BOT PR SCH (16:00)
[2017-04-28] MEDS ORDERED: Furosemide 100 MG/10 ML VIAL SLOW IVP SCH (17:15)
[2017-04-28] MEDS ORDERED: Furosemide 80 MG TAB PO SCH (18:45)
[2017-04-28] MEDS ORDERED: Metolazone 5 MG TAB PO SCH (18:45)
[2017-04-28] MEDS: Docusate 100 MG CAP PO SCH (21:02)
[2017-04-28] MEDS: Pravastatin Sodium 40 MG TAB PO SCH (21:02)
[2017-04-29] MEDS: Montelukast Sodium 10 mg Tablet PO SCH (08:54)
[2017-04-29] MEDS: Furosemide 40 MG TAB PO SCH ×2 (08:54→14:08)
[2017-04-29] MEDS: Docusate 100 MG CAP PO SCH (08:54)
[2017-04-29] MEDS: Isosorbide Dinitrate 20 MG TAB PO SCH ×2 (08:54→14:08)
[2017-04-29] MEDS: Famotidine 20 MG TAB PO SCH (08:55)
[2017-04-29] MEDS: hydrALAZINE 25 MG TAB PO SCH ×2 (08:55→14:08)
[2017-04-29] MEDS: Enoxaparin Sodium 30 MG/0.3 ML SYRINGE SC SCH (08:56)
[2017-04-29] MEDS: Labetalol 100 MG TAB PO SCH (08:56)
[2017-04-29] MEDS ORDERED: Polyethylene Glycol 3350 17 GM Packet PO SCH (09:00)
[2017-04-29] MEDS: Insulin Detemir 100 UNITS/ML 10 UNITS in Pre-Filled Syringe 1 EACH SC SCH (10:37)
[2017-04-29] MEDS: Insulin Regular 300 UNITS/3 ML VIAL SC PRN (12:02)
--- NOTE | 2017-04-29 13:11 | PDOC.PN ---
- Subjective Encounter Start Date: 04/29/17 Encounter Start Time: 10:15 Subjective: no sob, feels better -: at bedside - Objective MAR Reviewed: Yes Vital Signs & Weight: Vital Signs (12 hours) Temp Pulse Resp BP BP Pulse Ox Pulse Ox 04/29/17 11:09 92 16 94 L 04/29/17 09:51 91 L 04/29/17 08:56 84 04/29/17 08:55 84 122/61 04/29/17 08:10 98.8 F 84 12 122/61 98 04/29/17 06:40 73 16 98 04/29/17 02:23 87 18 100 Pulse Ox Pulse Ox 04/29/17 11:09 04/29/17 09:51 85 L 97 04/29/17 08:56 04/29/17 08:55 04/29/17 08:10 04/29/17 06:40 04/29/17 02:23 Weight Weight 175 lb 8 oz I&O: 04/28/17 04/29/17 04/30/17 06:59 06:59 06:59 Intake Total 240 1080 Output Total 800 600 Balance -560 480 Result Diagrams: 04/28/17 08:23 04/28/17 08:23 Additional Labs: Accuchecks 04/29/17 04/29/17 04/28/17 11:03 05:29 20:15 POC Glucose 224 H 152 H 170 H 04/28/17 16:52 POC Glucose 130 H Phys Exam - Physical Examination HEENT: PERRLA, moist MMs Neck: no JVD, supple Respiratory: no wheezing, no rales Cardiovascular: RRR, no significant murmur Gastrointestinal: soft, non-tender, positive bowel sounds Musculoskeletal: pulses present, edema present Neurological: non-focal, moves all 4 limbs Psychiatric: A&O x 3 Dx/Plan (1) Diastolic CHF, acute on chronic Code(s): I50.33 - ACUTE ON CHRONIC DIASTOLIC (CONGESTIVE) HEART FAILURE Status : Acute (2) Anasarca Code(s): R60.1 - GENERALIZED EDEMA Status: Acute (3) Physical deconditioning Code(s): R53.81 - OTHER MALAISE Status: Acute (4) DM type 2 (diabetes mellitus, type 2) Status: Chronic Qualifiers: Diabetes mellitus complication status: with kidney complications Diabetes mellitus complication detail: with chronic kidney disease Diabetes mellitus group home insulin use: with termination clerk use Chronic kidney disease stage: stage 3 (moderate) Qualified Code(s): E11.22 - Type 2 diabetes mellitus with diabetic chronic kidney disease; N18.3 - Chronic kidney disease, stage 3 ( moderate); N18.3 - Chronic kidney disease, stage 3 (moderate); Z79.4 - ferry terminal supervisor (current) use of insulin; Z79.4 - pen[facility]entiary (current) use of insulin; Z79.4 - penitentiary (current) use of insulin; Z79.4 - pen[facility]entiary (current) use of insulin (5) COPD (chronic obstructive pulmonary disease) Status: Chronic Qualifiers: COPD type: chronic bronchitis (6) CORNELIA (acute kidney injury) Code(s): N17.9 - ACUTE KIDNEY FAILURE, UNSPECIFIED Status: Acute Comment: resolving (7) Acute on chronic respiratory failure with hypoxemia Code(s): J96.21 - ACUTE AND CHRONIC RESPIRATORY FAILURE WITH HYPOXIA Status: Acute Comment: resolving (8) CKD (chronic kidney disease), stage III Code(s): N18.3 - CHRONIC KIDNEY DISEASE, STAGE 3 (MODERATE) Status: Chronic - Plan has been accepted to swing bed -: may dc pt -: continue oral diuresis, meds were reconciled for dc -: to f/u with cardio in 3 weeks, 2g sod diet with fluid restriction * . Review of Systems - Medications/Allergies Allergies/Adverse Reactions: Allergies Allergy/AdvReac Type Severity Reaction Status Date / Time No Known Drug Allergies Allergy Verified 03/27/17 20:27 Medications: Current Medications Acetaminophen (Tylenol) 650 mg PO Q4H PRN PRN Reason: Headache/Fever or Pain Albuterol/Ipratropium (Duoneb) 3 ml NEB [id number] [facility] Last Admin: 04/29/17 11:09 Dose: 3 ml Aspirin (Aspirin Chewable) 81 mg PO DAILY [facility] Last Admin: 04/29/17 08:55 Dose: 81 mg Bisacodyl (Dulcolax) 10 mg GA Q8H PRN PRN Reason: Constipation Dextrose/Water (Dextrose 50%) 25 gm IVP PRN PRN PRN Reason: HYPOGLYCEMIA PROTOCOL Docusate Sodium (Colace) 100 mg PO BID [facility] Last Admin: 04/29/17 08:54 Dose: 100 mg Enoxaparin Sodium (Lovenox) 30 mg SC 0900 [facility] Last Admin: 04/29/17 08:56 Dose: 30 mg Famotidine (Pepcid) 20 mg PO DAILY [facility] Last Admin: 04/29/17 08:55 Dose: 20 mg Furosemide (Lasix) 40 mg PO 0900,1400 [facility] Last Admin: 04/29/17 08:54 Dose: 40 mg Glucagon (Glucagon) 1 mg IM PRN PRN PRN Reason: HYPOGLYCEMIA PROTOCOL Guaifenesin/Dextromethorphan (Robitussin Dm) 15 ml PO Q4H PRN PRN Reason: Cough Hydralazine HCl (Apresoline) 50 mg PO TID [facility] Last Admin: 04/29/17 08:55 Dose: 50 mg Dextrose/Water (D5w) 1,000 mls @ 0 mls/hr IV INF PRN; As Directed PRN Reason: HYPOGLYCEMIA PROTOCOL Insulin Detemir 10 units/ (Miscellaneous Medication) 0.1 mls @ 0 mls/hr SC QAM [facility] Last Admin: 04/29/17 10:37 Dose: 0.1 mls Insulin Human Regular (Humulin R) 0 units SC .MILD SLIDING PRN; Protocol PRN Reason: MILD SLIDING SCALE Last Admin: 04/29/17 12:02 Dose: 3 unit Isosorbide Dinitrate (Isordil) 20 mg PO TID [facility] Last Admin: 04/29/17 08:54 Dose: 20 mg Labetalol HCl (Normodyne) 50 mg PO BID [facility] Last Admin: 04/29/17 08:56 Dose: 50 mg Montelukast Sodium (Singulair) 10 mg PO DAILY [facility] Last Admin: 04/29/17 08:54 Dose: 10 mg Polyethylene Glycol (Miralax) 17 gm PO DAILY [facility] Last Admin: 04/29/17 08:55 Dose: 17 gm Pravastatin Sodium (Pravachol) 40 mg PO HS [facility] Last Admin: 04/28/17 21:02 Dose: 40 mg Senna (Senokot) 2 tab PO HSPRN PRN PRN Reason: Constipation Last Admin: 04/26/17 21:51 Dose: 2 tab Sodium Chloride (Flush - Normal Saline) 10 ml IVF Q12HR [facility] Last Admin: 04/29/17 09:04 Dose: Not Given Sodium Chloride (Flush - Normal Saline) 10 ml IVF PRN PRN PRN Reason: Saline Flush
[2017-04-29 14:08] VITALS: BP 112/56
[2017-04-29 14:20] VITALS: TEMP 98.7
--- NOTE | 2017-04-29 15:33 | DIS ---
DATE OF ADMISSION: 04/19/2017 DATE OF DISCHARGE: 04/29/2017 DISCHARGE DISPOSITION: To [facility] swing bed. PRIMARY DISCHARGE DIAGNOSES: Acute on chronic diastolic heart failure, generalized anasarca, severe deconditioning, chronic obstructive pulmonary disease exacerbation, resolved, acute kidney injury, di abetes mellitus type 2, chronic kidney disease stage 3. PROCEDURES DONE DURING HOSPITALIZATION: Echo with 2D Doppler done showed an EF of 60%-65% with sever e concentric LVH and was also impaired relaxation compatible with diastolic dysfunction, moderate to severe tricuspid regurgitation was seen. The patient also has RV systolic pressures of 74 mmHg sugge stive of severe pulmonary hypertension. CT chest done on the day of admission showed moderate to lar ge left and small right pleural effusion with compressive atelectasis seen. There was finding sugges tive of possible atypical infectious process in the lungs, diffuse anasarca, mild pericardial effusio n were all seen on the CAT scan of the chest. Blood cultures x2, no growth. Influenza A and B antig ens were negative. Discharge H&H was 10 and 34, platelet count 273. Discharge BUN and creatinine wa s 32 and 1.2. BNP of 479 on the day of admission with indeterminate troponin peaking up to 0.4 on th e day of admission and CK-MB was 5.4, albumin was 2.8 on the day of admission. DISCHARGE MEDICATIONS: Aspirin 81 mg p.o. daily, Colace 100 mg p.o. twice daily, Lasix 40 mg p.o. tw ice daily, hydralazine 50 mg p.o. 3 times daily, Levemir 10 units subcutaneously q.a.m., DuoNeb q.6 h ours, Isordil 20 mg p.o. 3 times daily, labetalol 50 mg p.o. twice daily, Singulair 10 mg p.o. daily, MiraLax 17 grams p.o. daily, Pravachol 40 mg p.o. at bedtime. ALLERGIES: No known drug allergies. INPATIENT CONSULTS: Dr. Chaidez for Cardiology and Dr. Yu for Pulmonology, Dr. Cabezas for Nephrolog y. BRIEF COURSE DURING HOSPITALIZATION: Patient initially got admitted on the with hypoxia and low saturations at home. He had also syncopized at home. Patient was initially placed on BiPAP for acu te on chronic respiratory failure with hypoxia and acute on chronic congestive heart failure exacerba tion with demand ischemia to IMCU. He has had gentle diuresis done and has had consultation with Dr. Chaidez for Cardiology and Dr. Yu for Pulmonology. The patient has multiple comorbid conditions and has poor functional status as well with diffuse anasarca. I have had a discussion with the mary ent's and family who wanted him to be a do not resuscitate. The patient came off BiPAP [facility] and was transferred to medical floor. He has had slow and gentle diuresis done during his stay here. He was taken off all antibiotics yesterday. He still has anasarca and needs to continue on La six orally. Due to deconditioning, the patient is being sent to [facility] swing bed for 2 weeks for physical therapy and recuperation prior to going home. A total of 35 minutes was spent on discharge plan. Please see a [id number] documentation on [facility] for the day of discharge.
== END 2017-04-29 14:37 | DRG 291 ==
LOC: ERS 08:11 → IMCU/EMU 14:44 → 2NO 04-23 18:21 → T4-A 04-25 11:29
PROVIDERS: ADMIT Internal Medicine; ATTEND Internal Medicine
PROC: 5A09357 Assistance with Respiratory Ventilation, Less than 24 Consecutive Hours, Continuous Positive Airway Pressure (ICD-10-PCS; principal; 2017-04-19)
DX: I13.0 Hypertensive heart and chronic kidney disease with heart failure and stage 1 through stage 4 chronic kidney disease, or unspecified chronic kidney disease (principal); I50.33 Acute on chronic diastolic (congestive) heart failure; J96.21 Acute and chronic respiratory failure with hypoxia; N17.9 Acute kidney failure, unspecified; J44.1 Chronic obstructive pulmonary disease with (acute) exacerbation; I24.8 Other forms of acute ischemic heart disease; E87.1 Hypo-osmolality and hyponatremia; Z66 Do not resuscitate; I42.2 Other hypertrophic cardiomyopathy; E11.22 Type 2 diabetes mellitus with diabetic chronic kidney disease; N18.3 Chronic kidney disease, stage 3 (moderate); E11.65 Type 2 diabetes mellitus with hyperglycemia; Z79.82 Long term (current) use of aspirin; Z79.4 Long term (current) use of insulin; Z79.899 Other long term (current) drug therapy
CPT/HCPCS: 36415; 36416; 71045; 71260; 80048; 80053; 82553; 82570; 83605; 83880; 84156; 84484; 85025; 87040; 87804; 93005; 93306; 94640; 94660; 96365; 96366; 96367; 96372; A4216; G8978-GP-CK; G8979-GP-CI; G8987-GO-CL; G8988-GO-CJ; J1650; J1815; J1940; J1956; J2543; J3370; J7050; J7620

== ENCOUNTER 2017-05-25 06:58 | Emergency (ER) | payer MEDICARE | END 2017-05-25 10:00 | disposition home or self-care (01) | LOC: ERS 06:58 | DX: E11.649 Type 2 diabetes mellitus with hypoglycemia without coma (principal); E78.5 Hyperlipidemia, unspecified; J44.9 Chronic obstructive pulmonary disease, unspecified; I11.0 Hypertensive heart disease with heart failure; I50.9 Heart failure, unspecified | CPT/HCPCS: 36416; 94640 ==

== ENCOUNTER 2017-05-26 12:37 | Inpatient (IN) | payer MEDICARE ==
[2017-05-26 13:14] LABS: #Lymphocytes 0.5 thou/uL (1.20-3.40); #Monocytes 0.1 thou/uL (0.11-0.59); #Neutrophils 2.9 thou/uL (1.40-6.50); %Basophils 0.4 % (0.0-1.0); %Eosinophils 1.1 % (0.0-10.0); %Lymphocytes 14.6 % (21.0-51.0); %Monocytes 3.3 % (0.0-10.0); %Neutrophils 80.6 % (42.0-75.0); Hemoglobin 10.2 g/dL (14.0-18.0); Mean Corpuscular HGB CONC 28.2 g/dL (32.0-36.0); Mean Corpuscular Hemoglobin 25.4 pg (27.0-31.0); Mean Platelet Volume 6.6 fL (7.4-10.4); Platelet Count 222 thou/uL (130-400); RBC Distribution Width 14.3 % (11.5-14.5); Red Blood Cell (RBC) Count 4.04 mill/uL (4.70-6.10); White Blood Cell (WBC) Count 3.6 thou/uL (4.8-10.8)
[2017-05-26 13:32] LABS: ALT (SGPT) 34 U/L (8-55); AST (SGOT) 26 U/L (5-34); Albumin 3.1 g/dL (3.4-4.8); Alkaline Phosphatase 91 U/L (40-150); Anion Gap 8 mmol/L (10-20); BUN (Urea Nitrogen) 36 mg/dL (8.4-25.7); Bilirubin, Total 0.3 mg/dL (0.2-1.2); CK (CPK) 81 U/L (30-200); Calc. Creatinine Clearance 0 mL/min (70-130); Calcium 9.4 mg/dL (7.8-10.44); Carbon Dioxide 37 mmol/L (23-31); Chloride 96 mmol/L (98-107); Estimated GFR-MDRD 55; Globulin 4.4 g/dL (2.4-3.5); Glucose 150 mg/dL (83-110); Potassium 4.4 mmol/L (3.5-5.1); Protein, Total 7.5 g/dL (5.8-8.1); Sodium 137 mmol/L (136-145)
[2017-05-26 13:36] LABS: CKMB 4.5 ng/mL (0-6.6); Troponin I 0.279 ng/mL (< 0.028)
--- NOTE | 2017-05-26 13:36 | RAD ---
FRONTAL RADIOGRAPH CHEST: 05/26/2017 HISTORY: Edema. Short of breath. COMPARISON: 04/24/2017 FINDINGS: No pneumothorax noted. There is pulmonary vascular congestion. There is dense pleural and parenchym al opacity involving both lung bases, with partial obscuration of the right and left lateral heart maria guadalupe rder and blunting of the bilateral costophrenic angles. IMPRESSION: Pulmonary vascular congestion with perihilar interstitial and alveolar opacity, as well as partial co nsolidation/collapse of bilateral lower lobes. Findings suggest pulmonary edema. Infectious pneumon itis or aspiration in the lung bases cannot be excluded. Short-term follow-up imaging of the chest f ollowing treatment advised. POS: HARVEY
[2017-05-26] MEDS ORDERED: Furosemide 40 MG/4 ML VIAL ONE (13:47)
[2017-05-26] MEDS ORDERED: Nitroglycerin 2% Ointment 1 INCH/1 GM Packet ONE (13:47)
[2017-05-26] MEDS ORDERED: Dextrose 5% in Water 1,000 ML IV PRN (14:52)
[2017-05-26] MEDS ORDERED: Dextrose 50% Abboject 50 ML SYRINGE SLOW IVP PRN (14:52)
[2017-05-26] MEDS ORDERED: Acetaminophen 325 MG TAB PO PRN (15:11)
[2017-05-26] MEDS ORDERED: Milk Of Magnesia 30 ML UDCUP PO PRN (15:11)
[2017-05-26] MEDS ORDERED: Ondansetron HCl/PF 4 MG/2 ML Vial IVP PRN (15:11)
[2017-05-26] MEDS ORDERED: Albuterol Sulfate 2.5 mg/3 ml Neb NEB PRN (15:34)
[2017-05-26] MEDS ORDERED: hydrALAZINE 20 MG/ML VIAL SLOW IVP PRN (16:27)
[2017-05-26] MEDS ORDERED: Labetalol HCl 100 MG/20 ML VIAL SLOW IVP PRN (16:27)
--- NOTE | 2017-05-26 16:36 | HP ---
PRIMARY CARE PROVIDER: Dr. Blas Dimas. PRESENTING COMPLAINT: "My whole body is swollen." HISTORY OF PRESENT ILLNESS: Mr. Owen Nelson is a 76-year-old male with a past medical history of ch ronic respiratory failure, on 2 liters of oxygen, diastolic CHF, CKD stage 3 to 4, hypertension, dysl ipidemia, type 2 diabetes mellitus and asthma, who presents to the emergency room with anasarca. [facility] daughter [facility] reports that he has been progressively increasing in weight in the past few days with edema in his hands, feet, and abdomen associated with shortness of breath and orthopnea. His bed has had to be propped up for the past few days due to this orthopnea. His reports he us díazy uses 2 pillows when he was at home. He was admitted a month ago for CHF and discharged to the [facility] after he improved with therapy. He denies chest pain, palpitations or PND. He has no c ough or sputum production. He has no abdominal or urinary symptoms. At the emergency room, he was f ound to have worsening renal function with creatinine of 1.9 (discharge creatinine was 1.25). He als o had elevated troponin at 0.279 and BNP of 520 (elevated from last admission's BNP). He received a dose of IV furosemide and was admitted for acute on chronic CHF exacerbation. PAST MEDICAL HISTORY: As stated in the HPI. PAST SURGICAL HISTORY: Back surgery. ALLERGIES: None. FAMILY HISTORY: Reviewed and noncontributory. CURRENT MEDICATIONS: Albuterol sulfate 2.5 mg nebulizer q.4 hours p.r.n., aspirin 81 mg daily, Nery alexa 100 mg p.o. q.4 hourly p.r.n., Docusate 100 mg b.i.d., furosemide 40 mg b.i.d., Humalog sliding up insulin pump, hydralazine 50 mg t.i.d., insulin detemir 10 units q.a.m., ipratropium/albuterol sul fate 3 mL nebs q.4 hours, isosorbide dinitrate 20 mg t.i.d., labetalol 50 mg b.i.d., levocetirizine d ihydrochloride 5 mg q.a.m., montelukast sodium 10 mg daily, polyethylene glycol 17 grams daily and pr avastatin 40 mg every evening. SOCIAL HISTORY: He does not smoke cigarettes, drink alcohol or use illicit drugs. PHYSICAL EXAMINATION: VITAL SIGNS: Stable. GENERAL: Not in acute distress, seems comfortable on 2 liters of oxygen via nasal cannula. HEENT: PERRLA, EOMI. Moist mucous membranes, not pale, anicteric. Normocephalic and atraumatic. NECK: Supple, with elevated JVD. CARDIOVASCULAR: Regular rate and rhythm. No murmurs, rubs or gallops. S1 and S2 only. RESPIRATORY: Reduced breath sounds bilaterally with crackles in bilateral lower lung zones. ABDOMEN: Bowel sounds present, soft, anasarca. No tenderness or guarding. EXTREMITIES: 3+ bilateral lower extremity edema. NEUROLOGIC: No focal deficits. Alert and oriented. PSYCHIATRIC: Normal mood and affect. SKIN: No rashes or lesions. SIGNIFICANT LABORATORY DATA: As stated in HPI. IMAGING DATA: Chest x-ray reveals pulmonary vascular congestion with perihilar interstitial and alve olar opacity and her last partial consolidation collapse of bilateral lower lobes. Findings suggest pulmonary edema. EKG: No signs of acute ischemia. ASSESSMENT AND PLAN: 1. Acute on chronic diastolic congestive heart failure exacerbation. The patient comes in with anas arca and increased oxygen requirements. He also had markedly elevated BNP and demand ischemia. Card iology has been consulted. He is on oxygen supplementation, IV furosemide 40 mg q.12 hours. We will monitor his ins and outs as well as weigh him daily. He will also have nitroglycerin p.r.n. for sean st pain. His last ejection fraction done on 04/19/2017 was 60% to 65% and showed mild mitral regurgi tation with moderate to severe tricuspid regurgitation on the right ventricular systolic pressure of 74 mmHg consistent with severe pulmonary hypertension. 2. Type 2 diabetes mellitus. His blood glucose is 150. We will place him on sliding scale insulin, diabetic diet, fingerstick glucose before meals and at bedtime and hypoglycemia protocol. We will r esume his home medications, albeit at a reduced dosage once they have been confirmed. 3. Hypertension. Blood pressure is currently controlled. We will resume home medications once conf irmed. 4. Hyperlipidemia. Continue statins once confirmed. 5. History of asthma. We will continue nebulizer therapy. 6. Chronic respiratory failure with hypoxia. We will continue oxygen supplementation and placed on DuoNebs scheduled and albuterol p.r.n. CODE STATUS: DNR, confirmed by the patient.
[2017-05-26 16:48] VITALS: BMI 29.5
[2017-05-26 19:02] LABS: Troponin I 0.192 ng/mL (< 0.028)
[2017-05-26] MEDS: Docusate 100 MG CAP PO SCH (21:25)
[2017-05-26] MEDS: Heparin 5,000 UNITS/ML VIAL SC SCH (21:26)
[2017-05-27] MEDS: Furosemide 40 MG/4 ML VIAL SLOW IVP SCH ×2 (05:30→14:36)
[2017-05-27 05:34] LABS: #Lymphocytes 0.8 thou/uL (1.20-3.40); #Monocytes 0.3 thou/uL (0.11-0.59); #Neutrophils 1.7 thou/uL (1.40-6.50); %Basophils 0.6 % (0.0-1.0); %Eosinophils 0.3 % (0.0-10.0); %Lymphocytes 28.1 % (21.0-51.0); %Monocytes 11.8 % (0.0-10.0); %Neutrophils 59.2 % (42.0-75.0); Hemoglobin 10.4 g/dL (14.0-18.0); Mean Corpuscular HGB CONC 28.9 g/dL (32.0-36.0); Mean Corpuscular Hemoglobin 25.3 pg (27.0-31.0); Mean Corpuscular Volume 87.5 fl (80.0-94.0); Platelet Count 241 thou/uL (130-400); RBC Distribution Width 14.4 % (11.5-14.5); Red Blood Cell (RBC) Count 4.11 mill/uL (4.70-6.10); White Blood Cell (WBC) Count 2.8 thou/uL (4.8-10.8)
[2017-05-27 05:35] LABS: Anion Gap 12 mmol/L (10-20); BUN (Urea Nitrogen) 36 mg/dL (8.4-25.7); Calc. Creatinine Clearance 57 mL/min (70-130); Calcium 9.4 mg/dL (7.8-10.44); Carbon Dioxide 30 mmol/L (23-31); Chloride 97 mmol/L (98-107); Estimated GFR-MDRD 61; Glucose 212 mg/dL (83-110); Potassium 4.6 mmol/L (3.5-5.1); Sodium 134 mmol/L (136-145)
[2017-05-27] MEDS: Heparin 5,000 UNITS/ML VIAL SC SCH ×3 (09:20→21:37)
[2017-05-27] MEDS: Docusate 100 MG CAP PO SCH ×2 (09:20→21:37)
[2017-05-27] MEDS ORDERED: Benzonatate 100 MG CAP PO PRN (10:45)
--- NOTE | 2017-05-27 10:52 | PDOC.PN ---
- Subjective Encounter Start Date: 05/27/17 Encounter Start Time: 07:20 Pt seen for followup re: CHF exacerbation. Denies chest pain. SOBOE+. Orthopnea+. Leg swelling+. - Objective MAR Reviewed: Yes Vital Signs & Weight: Vital Signs (12 hours) Temp Pulse Resp BP Pulse Ox 05/27/17 08:00 97.4 F L 88 17 05/27/17 07:41 97.4 F L 88 17 170/84 H 96 05/27/17 06:37 100 18 05/27/17 04:10 97 05/27/17 04:00 97.4 F L 88 16 170/85 H 95 05/27/17 00:00 97.4 F L 91 20 168/81 H 100 05/26/17 23:56 91 16 91 L Weight Weight 195 lb 11.2 oz I&O: 05/26/17 05/27/17 05/28/17 06:59 06:59 06:59 Intake Total 120 Output Total 750 Balance -630 Result Diagrams: 05/27/17 05:14 05/27/17 05:14 Additional Labs: Accuchecks 05/27/17 05/26/17 06:00 20:44 POC Glucose 219 H 169 H EKG Reviewed by me: Yes (Tele: NSR) Phys Exam - Physical Examination Constitutional: NAD HEENT: PERRLA, moist MMs, sclera anicteric, oral pharynx no lesions Neck: no nodes, supple, full ROM JVD+ Respiratory: no wheezing, no rhonchi Bibasal crackles Cardiovascular: RRR, no rub Gastrointestinal: soft, non-tender, positive bowel sounds distention Musculoskeletal: edema present Neurological: moves all 4 limbs Psychiatric: normal affect Dx/Plan (1) Acute on chronic respiratory failure with hypoxemia Code(s): J96.21 - ACUTE AND CHRONIC RESPIRATORY FAILURE WITH HYPOXIA Status: Acute Comment: Due to CHF exacerbation (2) Renal failure (ARF), acute on chronic Code(s): N17.9 - ACUTE KIDNEY FAILURE, UNSPECIFIED; N18.9 - CHRONIC KIDNEY DISEASE, UNSPECIFIED Status: Acute Qualifiers: Acute renal failure type: unspecified Chronic kidney disease stage: stage 3 (moderate) Qualified Code(s): N17.9 - Acute kidney failure, unspecified; N18.3 - Chronic kidney disease, stage 3 (moderate); N18.3 - Chronic kidney disease, stage 3 (moderate) Comment: Monitor creatinine, lytes (3) Diastolic CHF, acute on chronic Code(s): I50.33 - ACUTE ON CHRONIC DIASTOLIC (CONGESTIVE) HEART FAILURE Status : Acute Comment: Pt missed his heart failure clinic appointeent last . Continue IV furosemide. Consult cardiology for optimization of heart failure treatment. Follow I/O, daily weights. (4) Anasarca Code(s): R60.1 - GENERALIZED EDEMA Status: Acute Comment: Due to CHF, continue diuretics (5) COPD (chronic obstructive pulmonary disease) Status: Chronic Qualifiers: COPD type: chronic bronchitis Comment: stable (6) DM type 2 (diabetes mellitus, type 2) Status: Chronic Qualifiers: Diabetes mellitus alf insulin use: with alf use Diabetes mellitus complication status: with kidney complications Diabetes mellitus complication detail: with chronic kidney disease Chronic kidney disease stage : stage 3 (moderate) Qualified Code(s): E11.22 - Type 2 diabetes mellitus with diabetic chronic kidney disease; N18.3 - Chronic kidney disease, stage 3 ( moderate); N18.3 - Chronic kidney disease, stage 3 (moderate); Z79.4 - prison (current) use of insulin; Z79.4 - prison (current) use of insulin; Z79.4 - professional model (current) use of insulin; Z79.4 - prison (current) use of insulin Comment: Continue accuchecks, insulin sliding scale (7) Dyslipidemia Code(s): E78.5 - HYPERLIPIDEMIA, UNSPECIFIED Status: Chronic Comment: continue statin - Plan * . Review of Systems - Review of Systems Constitutional: negative: fever, chills, sweats, weakness, malaise Respiratory: Shortness of Breath, SOB with Excertion. negative: Cough, Dry, Hemoptysis, Pleuritic Pain, Sputum, Wheezing Cardiovascular: orthopnea, edema. negative: chest pain, palpitations, paroxysmal nocturnal dyspnea, light headedness Gastrointestinal: negative: Nausea, Vomiting, Abdominal Pain, Diarrhea, Constipation, Melena, Hematochezia Genitourinary: negative: Dysuria, Frequency, Incontinence, Hematuria, Retention - Medications/Allergies Allergies/Adverse Reactions: Allergies Allergy/AdvReac Type Severity Reaction Status Date / Time No Known Drug Allergies Allergy Verified 03/27/17 20:27 Medications: Current Medications Acetaminophen (Tylenol) 650 mg PO Q4H PRN PRN Reason: Headache/Fever or Pain Albuterol Sulfate (Ventolin) 2.5 mg NEB [id number] PRN PRN Reason: Wheezing Albuterol/Ipratropium (Duoneb) 3 ml NEB [id number] [facility] Last Admin: 05/27/17 06:37 Dose: 3 ml Aspirin (Aspirin Chewable) 81 mg PO DAILY [facility] Benzonatate (Tessalon) 100 mg PO Q4H PRN PRN Reason: Cough Dextrose/Water (Dextrose 50%) 25 gm SLOW IVP PRN PRN PRN Reason: Hypoglycemia Docusate Sodium (Colace) 100 mg PO BID [facility] Last Admin: 05/27/17 09:20 Dose: 100 mg Docusate Sodium (Colace) 100 mg PO BID [facility] Furosemide (Lasix) 40 mg SLOW IVP 0600,1400 [facility] Last Admin: 05/27/17 05:30 Dose: 40 mg Glucagon (Glucagon) 1 mg IM PRN PRN PRN Reason: Hypoglycemia Guaifenesin/Dextromethorphan (Robitussin Dm) 15 ml PO Q4H PRN PRN Reason: Cough Heparin Sodium (Porcine) (Heparin) 5,000 units SC TID [facility] Last Admin: 05/27/17 09:20 Dose: 5,000 units Hydralazine HCl (Apresoline) 10 mg SLOW IVP Q4H PRN PRN Reason: Blood Pressure Last Admin: 05/26/17 21:25 Dose: 10 mg Hydralazine HCl (Apresoline) 50 mg PO TID [facility] Dextrose/Water (D5w) 1,000 mls @ 0 mls/hr IV .Q0M PRN; As Directed PRN Reason: Hypoglycemia Insulin Detemir (Levemir) 10 units SC QAM [facility] Insulin Human Lispro (Humalog) 0 units SC .MILD SLIDING SCALE PRN PRN Reason: Mild Correctional Scale Isosorbide Dinitrate (Isordil) 20 mg PO TID [facility] Labetalol HCl (Normodyne) 10 mg SLOW IVP Q4H PRN PRN Reason: SBP Greater Than 180 Labetalol HCl (Normodyne) 50 mg PO BID [facility] Lactulose (Lactulose) 20 gm PO DAILYPRN PRN PRN Reason: Constipation Magnesium Hydroxide (Milk Of Magnesium) 30 ml PO DAILYPRN PRN PRN Reason: Constipation Montelukast Sodium (Singulair) 10 mg PO DAILY [facility] Non-Formulary Medication (Levocetirizine Dihydrochloride [Xyzal]) 5 mg PO QAM [facility] Ondansetron HCl (Zofran) 4 mg IVP Q6H PRN PRN Reason: Nausea/Vomiting Polyethylene Glycol (Miralax) 17 gm PO DAILY [facility] Pravastatin Sodium (Pravachol) 40 mg PO HS [facility]
[2017-05-27] MEDS: HumaLOG 300 UNITS/3 ML VIAL SC PRN ×2 (11:52→18:33)
[2017-05-27] MEDS: hydrALAZINE 25 MG TAB PO SCH ×2 (14:36→21:37)
[2017-05-27] MEDS: Isosorbide Dinitrate 20 MG TAB PO SCH ×2 (14:36→21:38)
[2017-05-27] MEDS: Guaifenesin DM 100-10/5 ML UDCUP PO PRN (16:07)
--- NOTE | 2017-05-27 16:47 | CON ---
DATE OF CONSULTATION: 05/27/2017 HISTORY OF PRESENT ILLNESS: Owen Nelson Jr. is a 76-year-old black male with history of diastolic heart failure. He initially presented on 03/20/2016 and was evaluated by Dr. Chaidez. He presented again on 04/19/2017 of increased shortness of breath. Echocardiogram during that admission revealed ejection fraction of 60%-65% with severe concentric left ventricular hypertrophy, evidence for diastolic dysfunction, mild mitral regurgitation, moderate to severe tricuspid regurgitation and pulmonary artery hypertension as well as large pleural effusion. He was diuresed for 10 days. He was eventually discharged to halfway. He now presents again with increased shortness of breath and generalized anasarca. He has orthopnea x2 pillows. He denies any chest pain. PAST MEDICAL HISTORY: Hypertension, hypercholesterolemia, diabetes, renal insufficiency, diastolic congestive heart failure. OPERATIONS: Back surgery. MEDICATIONS: Albuterol nebs q.4 hours p.r.n., aspirin 81 daily, Tessalon 100 mg q.4 hours p.r.n., Colace 100 b.i.d., furosemide 40 b.i.d., Humalog sliding scale, hydralazine 50 t.i.d., Levemir, Isordil 20 mg t.i.d., labetalol 50 b.i.d. , Xyzal 5 mg q.a.m., Singulair 10 mg daily, MiraLax 17 daily, pravastatin 40 at bedtime. SOCIAL HISTORY: Smoked in his 20s, but none since. He does not drink. FAMILY HISTORY: Positive for coronary artery disease. REVIEW OF SYSTEMS: Twelve point review of systems otherwise unremarkable. PHYSICAL EXAMINATION: VITAL SIGNS: 156/87, pulse of 85. HEENT: PERRL. NECK: Supple. CHEST: Reveals clear but distant breath sounds. CARDIAC: S1 and S2 were normal without any S3, S4 or murmurs. ABDOMEN: Normal bowel sounds, without tenderness, organomegaly. EXTREMITIES: Revealed 2-3+ edema in arms and legs. NEUROLOGIC: Grossly intact. IMAGING DATA AND LABORATORY DATA: EKG, I do not see any 12 lead EKG on the chart. Hemoglobin 10.4, hematocrit 36.0, white count 2,800, platelets 241,000. Sodium 134, potassium 4.6, chloride 97, carbon dioxide 30, BUN 36, creatinine 1.37, troponin I 0.279, BNP 520.6. IMPRESSION: 1. Acute on chronic systolic heart failure. 2. Hypertension. 3. Hypercholesterolemia. 4. Diabetes. 5. Renal insufficiency. 6. Distant smoker. PLAN: Mr. Nelson will be diuresed. His renal function will needed to be watched closely. He is DNR. MTDD
[2017-05-27] MEDS ORDERED: Pravastatin Sodium 40 MG TAB PO SCH (21:00)
[2017-05-27] MEDS: Atorvastatin Calcium 10 MG TAB PO SCH (21:37)
[2017-05-27] MEDS: Labetalol 100 MG TAB PO SCH (21:38)
[2017-05-28] MEDS: Furosemide 40 MG/4 ML VIAL SLOW IVP SCH (05:09)
[2017-05-28 05:29] LABS: #Eosinphils 0.1 thou/uL (0.0-0.7); #Lymphocytes 0.9 thou/uL (1.20-3.40); #Monocytes 0.4 thou/uL (0.11-0.59); #Neutrophils 1.9 thou/uL (1.40-6.50); %Basophils 0.5 % (0.0-1.0); %Eosinophils 3.6 % (0.0-10.0); %Lymphocytes 27.5 % (21.0-51.0); %Monocytes 10.7 % (0.0-10.0); %Neutrophils 57.7 % (42.0-75.0); Hemoglobin 9.5 g/dL (14.0-18.0); Mean Corpuscular HGB CONC 28.8 g/dL (32.0-36.0); Mean Corpuscular Hemoglobin 25.9 pg (27.0-31.0); Mean Corpuscular Volume 89.8 fl (80.0-94.0); Mean Platelet Volume 7.4 fL (7.4-10.4); Platelet Count 223 thou/uL (130-400); RBC Distribution Width 14.4 % (11.5-14.5); Red Blood Cell (RBC) Count 3.69 mill/uL (4.70-6.10); White Blood Cell (WBC) Count 3.4 thou/uL (4.8-10.8)
[2017-05-28 05:42] LABS: Anion Gap 9 mmol/L (10-20); BUN (Urea Nitrogen) 35 mg/dL (8.4-25.7); Calc. Creatinine Clearance 61 mL/min (70-130); Calcium 9.2 mg/dL (7.8-10.44); Carbon Dioxide 33 mmol/L (23-31); Chloride 97 mmol/L (98-107); Estimated GFR-MDRD 67; Glucose 150 mg/dL (83-110); Potassium 4.3 mmol/L (3.5-5.1); Sodium 135 mmol/L (136-145)
[2017-05-28 05:49] LABS: Troponin I 0.273 ng/mL (< 0.028)
[2017-05-28] MEDS ORDERED: Furosemide 40 MG/4 ML VIAL SLOW IVP SCH (08:59)
[2017-05-28] MEDS ORDERED: Metolazone 5 MG TAB PO SCH ×2 (09:00→09:15)
[2017-05-28] MEDS ORDERED: Furosemide 100 MG/10 ML VIAL SLOW IVP SCH (09:15)
[2017-05-28] MEDS: Isosorbide Dinitrate 20 MG TAB PO SCH ×3 (09:40→22:44)
[2017-05-28] MEDS: Docusate 100 MG CAP PO SCH ×2 (09:41→22:42)
[2017-05-28] MEDS: Loratadine 10 MG TAB PO SCH (09:41)
[2017-05-28] MEDS: Labetalol 100 MG TAB PO SCH ×2 (09:41→22:44)
[2017-05-28] MEDS: Heparin 5,000 UNITS/ML VIAL SC SCH ×3 (09:41→22:43)
[2017-05-28] MEDS: hydrALAZINE 25 MG TAB PO SCH ×3 (09:41→22:43)
[2017-05-28] MEDS: Montelukast Sodium 10 mg Tablet PO SCH (09:42)
[2017-05-28] MEDS: Insulin Detemir 100 UNITS/ML 10 UNITS in Pre-Filled Syringe 1 EACH SC SCH (09:43)
[2017-05-28] MEDS: Polyethylene Glycol 3350 17 GM Packet PO SCH (09:43)
[2017-05-28] MEDS: Guaifenesin DM 100-10/5 ML UDCUP PO PRN ×2 (09:46→15:08)
--- NOTE | 2017-05-28 10:44 | PDOC.PN ---
- Subjective Encounter Start Date: 05/28/17 Encounter Start Time: 07:00 Pt seen for followup re: acute on chronic respiratory failure. Feel tired. Shortness of breath is better. No chest pain. - Objective MAR Reviewed: Yes Vital Signs & Weight: Vital Signs (12 hours) Temp Pulse Resp BP Pulse Ox 05/28/17 09:41 87 05/28/17 07:41 97.3 F L 87 18 137/65 96 05/28/17 06:54 90 16 05/28/17 05:15 100 05/28/17 04:00 97.6 F 85 20 132/72 99 05/28/17 02:18 83 18 100 05/28/17 00:00 126/65 Weight Weight 192 lb 9.6 oz I&O: 05/27/17 05/28/17 05/29/17 06:59 06:59 06:59 Intake Total 120 1460 Output Total 750 1500 Balance -630 -40 Result Diagrams: 05/28/17 04:27 05/28/17 04:27 Additional Labs: Accuchecks 05/28/17 05/27/17 05:48 20:54 POC Glucose 157 H 217 H EKG Reviewed by me: Yes (Tele: NSR) Phys Exam - Physical Examination Constitutional: NAD HEENT: PERRLA, moist MMs, sclera anicteric, oral pharynx no lesions Neck: no nodes, supple, full ROM JVD Respiratory: no wheezing, no rhonchi Nimesh crackles Cardiovascular: RRR, no rub Musculoskeletal: edema present Neurological: moves all 4 limbs Psychiatric: normal affect Dx/Plan (1) Acute on chronic respiratory failure with hypoxemia Code(s): J96.21 - ACUTE AND CHRONIC RESPIRATORY FAILURE WITH HYPOXIA Status: Acute Comment: secondary to CHF exacerbation (2) Diastolic CHF, acute on chronic Code(s): I50.33 - ACUTE ON CHRONIC DIASTOLIC (CONGESTIVE) HEART FAILURE Status : Acute Comment: Continue IV furosemide. Follow I/O, daily weights. (3) Anasarca Code(s): R60.1 - GENERALIZED EDEMA Status: Acute Comment: continue diuretics (4) COPD (chronic obstructive pulmonary disease) Status: Chronic Qualifiers: COPD type: chronic bronchitis Comment: stable (5) DM type 2 (diabetes mellitus, type 2) Status: Chronic Qualifiers: Diabetes mellitus assistant terminal manager insulin use: with assistant terminal manager use Diabetes mellitus complication status: with kidney complications Diabetes mellitus complication detail: with chronic kidney disease Chronic kidney disease stage : stage 3 (moderate) Qualified Code(s): E11.22 - Type 2 diabetes mellitus with diabetic chronic kidney disease; N18.3 - Chronic kidney disease, stage 3 ( moderate); N18.3 - Chronic kidney disease, stage 3 (moderate); Z79.4 - [facility] (current) use of insulin; Z79.4 - termite treater (current) use of insulin; Z79.4 - termite treater (current) use of insulin; Z79.4 - [facility] (current) use of insulin Comment: On accuchecks, insulin sliding scale (6) Dyslipidemia Code(s): E78.5 - HYPERLIPIDEMIA, UNSPECIFIED Status: Chronic Comment: continue statin (7) Renal failure (ARF), acute on chronic Code(s): N17.9 - ACUTE KIDNEY FAILURE, UNSPECIFIED; N18.9 - CHRONIC KIDNEY DISEASE, UNSPECIFIED Status: Resolved Qualifiers: Acute renal failure type: unspecified Chronic kidney disease stage: stage 3 (moderate) Qualified Code(s): N17.9 - Acute kidney failure, unspecified; N18.3 - Chronic kidney disease, stage 3 (moderate); N18.3 - Chronic kidney disease, stage 3 (moderate) - Plan * . Review of Systems - Review of Systems Constitutional: negative: fever, chills, sweats, weakness, malaise Respiratory: Shortness of Breath, SOB with Excertion. negative: Cough, Dry, Hemoptysis, Pleuritic Pain, Sputum, Wheezing Cardiovascular: orthopnea. negative: chest pain, palpitations, paroxysmal nocturnal dyspnea, edema, light headedness Gastrointestinal: negative: Nausea, Vomiting, Abdominal Pain, Diarrhea, Constipation, Melena, Hematochezia Skin: negative: Rash, Lesions, Rodo, Bruising - Medications/Allergies Allergies/Adverse Reactions: Allergies Allergy/AdvReac Type Severity Reaction Status Date / Time No Known Drug Allergies Allergy Verified 03/27/17 20:27 Medications: Current Medications Acetaminophen (Tylenol) 650 mg PO Q4H PRN PRN Reason: Headache/Fever or Pain Albuterol Sulfate (Ventolin) 2.5 mg NEB [id number] PRN PRN Reason: Wheezing Albuterol/Ipratropium (Duoneb) 3 ml NEB [id number] [facility] Last Admin: 05/28/17 06:54 Dose: 3 ml Aspirin (Aspirin Chewable) 81 mg PO DAILY [facility] Last Admin: 05/28/17 09:41 Dose: 81 mg Atorvastatin Calcium (Lipitor) 10 mg PO HS [facility] Last Admin: 05/27/17 21:37 Dose: 10 mg Benzonatate (Tessalon) 100 mg PO Q4H PRN PRN Reason: Cough Dextrose/Water (Dextrose 50%) 25 gm SLOW IVP PRN PRN PRN Reason: Hypoglycemia Docusate Sodium (Colace) 100 mg PO BID [facility] Last Admin: 05/28/17 09:41 Dose: Not Given Furosemide (Lasix) 80 mg SLOW IVP 0600,1400 [facility] Glucagon (Glucagon) 1 mg IM PRN PRN PRN Reason: Hypoglycemia Guaifenesin/Dextromethorphan (Robitussin Dm) 15 ml PO Q4H PRN PRN Reason: Cough Last Admin: 05/28/17 09:46 Dose: 15 ml Heparin Sodium (Porcine) (Heparin) 5,000 units SC TID [facility] Last Admin: 05/28/17 09:41 Dose: 5,000 units Hydralazine HCl (Apresoline) 10 mg SLOW IVP Q4H PRN PRN Reason: Blood Pressure Last Admin: 05/26/17 21:25 Dose: 10 mg Hydralazine HCl (Apresoline) 50 mg PO TID [facility] Last Admin: 05/28/17 09:41 Dose: 50 mg Dextrose/Water (D5w) 1,000 mls @ 0 mls/hr IV .Q0M PRN; As Directed PRN Reason: Hypoglycemia Insulin Detemir 10 units/ (Miscellaneous Medication) 0.1 mls @ 0 mls/hr SC QAM [facility] Last Admin: 05/28/17 09:43 Dose: 0.1 mls Insulin Human Lispro (Humalog) 0 units SC .MILD SLIDING SCALE PRN PRN Reason: Mild Correctional Scale Last Admin: 05/27/17 18:33 Dose: 3 unit Isosorbide Dinitrate (Isordil) 20 mg PO TID [facility] Last Admin: 05/28/17 09:40 Dose: 20 mg Labetalol HCl (Normodyne) 10 mg SLOW IVP Q4H PRN PRN Reason: SBP Greater Than 180 Labetalol HCl (Normodyne) 50 mg PO BID [facility] Last Admin: 05/28/17 09:41 Dose: 50 mg Lactulose (Lactulose) 20 gm PO DAILYPRN PRN PRN Reason: Constipation Loratadine (Claritin) 10 mg PO QAM [facility] Last Admin: 05/28/17 09:41 Dose: 10 mg Magnesium Hydroxide (Milk Of Magnesium) 30 ml PO DAILYPRN PRN PRN Reason: Constipation Metolazone (Zaroxolyn) 5 mg PO 0830 [facility] Montelukast Sodium (Singulair) 10 mg PO DAILY [facility] Last Admin: 05/28/17 09:42 Dose: 10 mg Ondansetron HCl (Zofran) 4 mg IVP Q6H PRN PRN Reason: Nausea/Vomiting Polyethylene Glycol (Miralax) 17 gm PO DAILY [facility] Last Admin: 05/28/17 09:43 Dose: 17 gm Sodium Chloride (Flush - Normal Saline) 10 ml IVF Q12HR [facility] Sodium Chloride (Flush - Normal Saline) 10 ml IVF PRN PRN PRN Reason: Saline Flush
[2017-05-28] MEDS: HumaLOG 300 UNITS/3 ML VIAL SC PRN (12:24)
[2017-05-28] MEDS: Furosemide 100 MG/10 ML VIAL SLOW IVP SCH (14:49)
[2017-05-28] MEDS: Atorvastatin Calcium 10 MG TAB PO SCH (22:42)
[2017-05-29 04:44] LABS: #Eosinphils 0.1 thou/uL (0.0-0.7); #Lymphocytes 0.7 thou/uL (1.20-3.40); #Monocytes 0.4 thou/uL (0.11-0.59); #Neutrophils 1.3 thou/uL (1.40-6.50); %Basophils 0.2 % (0.0-1.0); %Lymphocytes 27.9 % (21.0-51.0); %Monocytes 14.4 % (0.0-10.0); %Neutrophils 51.4 % (42.0-75.0); Hemoglobin 9.1 g/dL (14.0-18.0); Mean Corpuscular HGB CONC 30.3 g/dL (32.0-36.0); Mean Corpuscular Hemoglobin 27.1 pg (27.0-31.0); Mean Corpuscular Volume 89.3 fl (80.0-94.0); Mean Platelet Volume 7.3 fL (7.4-10.4); Platelet Count 204 thou/uL (130-400); RBC Distribution Width 14.3 % (11.5-14.5); Red Blood Cell (RBC) Count 3.35 mill/uL (4.70-6.10); White Blood Cell (WBC) Count 2.5 thou/uL (4.8-10.8)
[2017-05-29 05:06] LABS: Anion Gap 10 mmol/L (10-20); BUN (Urea Nitrogen) 35 mg/dL (8.4-25.7); Calc. Creatinine Clearance 63 mL/min (70-130); Calcium 8.9 mg/dL (7.8-10.44); Carbon Dioxide 34 mmol/L (23-31); Chloride 96 mmol/L (98-107); Estimated GFR-MDRD 70; Glucose 101 mg/dL (83-110); Potassium 4.2 mmol/L (3.5-5.1); Sodium 136 mmol/L (136-145)
[2017-05-29] MEDS: Furosemide 100 MG/10 ML VIAL SLOW IVP SCH ×2 (06:06→14:56)
[2017-05-29] MEDS: Metolazone 5 MG TAB PO SCH (09:28)
[2017-05-29] MEDS: Loratadine 10 MG TAB PO SCH (09:28)
[2017-05-29] MEDS: Isosorbide Dinitrate 20 MG TAB PO SCH ×3 (09:28→22:25)
[2017-05-29] MEDS: hydrALAZINE 25 MG TAB PO SCH ×3 (09:28→22:24)
[2017-05-29] MEDS: Labetalol 100 MG TAB PO SCH ×2 (09:29→22:25)
[2017-05-29] MEDS: Docusate 100 MG CAP PO SCH ×2 (09:29→22:24)
[2017-05-29] MEDS: Insulin Detemir 100 UNITS/ML 10 UNITS in Pre-Filled Syringe 1 EACH SC SCH (09:29)
[2017-05-29] MEDS: Heparin 5,000 UNITS/ML VIAL SC SCH ×3 (09:29→22:24)
[2017-05-29] MEDS: Polyethylene Glycol 3350 17 GM Packet PO SCH (09:30)
[2017-05-29] MEDS: Montelukast Sodium 10 mg Tablet PO SCH (09:30)
[2017-05-29] MEDS: Guaifenesin DM 100-10/5 ML UDCUP PO PRN (09:34)
[2017-05-29] MEDS: HumaLOG 300 UNITS/3 ML VIAL SC PRN (11:53)
--- NOTE | 2017-05-29 12:07 | PDOC.PN ---
- Subjective Encounter Start Date: 05/29/17 Encounter Start Time: 07:20 Pt seen for followup re; CHF exacerbation. Reports SOBOE. - Objective MAR Reviewed: Yes Vital Signs & Weight: Vital Signs (12 hours) Temp Pulse Resp BP BP Pulse Ox 05/29/17 11:26 84 15 100 05/29/17 11:08 97.6 F 79 18 121/67 92 L 05/29/17 09:29 87 05/29/17 08:00 97.1 F L 87 18 129/59 L 92 L 05/29/17 07:17 100 05/29/17 07:16 82 15 100 05/29/17 04:00 97.6 F 83 16 128/68 94 L 05/29/17 02:08 82 18 95 05/29/17 01:01 96 Weight Weight 192 lb 9.6 oz I&O: 05/28/17 05/29/17 05/30/17 06:59 06:59 06:59 Intake Total 1460 1290 Output Total 1500 2075 Balance -40 -785 Result Diagrams: 05/29/17 04:19 05/29/17 04:19 Additional Labs: Accuchecks 05/29/17 05/28/17 05/28/17 05:49 20:44 16:34 POC Glucose 106 133 H 147 H 05/28/17 05/27/17 05/27/17 11:51 17:08 11:03 POC Glucose 222 H 241 H 230 H EKG Reviewed by me: Yes (Tele: NSR) Phys Exam - Physical Examination Obese HEENT: PERRLA, moist MMs, sclera anicteric, oral pharynx no lesions Neck: no nodes, supple, full ROM JVD Bibasal crackles Cardiovascular: RRR Gastrointestinal: soft, non-tender, no distention, positive bowel sounds Musculoskeletal: edema present Neurological: moves all 4 limbs Psychiatric: normal affect Dx/Plan (1) Acute on chronic respiratory failure with hypoxemia Code(s): J96.21 - ACUTE AND CHRONIC RESPIRATORY FAILURE WITH HYPOXIA Status: Acute Comment: secondary to CHF exacerbation (2) Diastolic CHF, acute on chronic Code(s): I50.33 - ACUTE ON CHRONIC DIASTOLIC (CONGESTIVE) HEART FAILURE Status : Acute Comment: Continue IV furosemide. Follow I/O, daily weights. (3) Anasarca Code(s): R60.1 - GENERALIZED EDEMA Status: Acute Comment: continue diuretics (4) COPD (chronic obstructive pulmonary disease) Status: Chronic Qualifiers: COPD type: chronic bronchitis Comment: stable (5) DM type 2 (diabetes mellitus, type 2) Status: Chronic Qualifiers: Diabetes mellitus custodial insulin use: with tank terminal gauger use Diabetes mellitus complication status: with kidney complications Diabetes mellitus complication detail: with chronic kidney disease Chronic kidney disease stage : stage 3 (moderate) Qualified Code(s): E11.22 - Type 2 diabetes mellitus with diabetic chronic kidney disease; N18.3 - Chronic kidney disease, stage 3 ( moderate); N18.3 - Chronic kidney disease, stage 3 (moderate); Z79.4 - [facility] (current) use of insulin; Z79.4 - termite helper (current) use of insulin; Z79.4 - [facility] (current) use of insulin; Z79.4 - termite helper (current) use of insulin Comment: On accuchecks, insulin sliding scale (6) Dyslipidemia Code(s): E78.5 - HYPERLIPIDEMIA, UNSPECIFIED Status: Chronic Comment: continue statin - Plan * . Review of Systems - Review of Systems Constitutional: negative: fever, chills, sweats, weakness, malaise Respiratory: Shortness of Breath, SOB with Excertion. negative: Cough, Dry, Hemoptysis, Pleuritic Pain, Sputum, Wheezing Cardiovascular: orthopnea, edema. negative: chest pain, palpitations, paroxysmal nocturnal dyspnea, light headedness Gastrointestinal: negative: Nausea, Vomiting, Abdominal Pain, Diarrhea, Constipation, Melena, Hematochezia Skin: negative: Rash, Lesions, Rodo, Bruising - Medications/Allergies Allergies/Adverse Reactions: Allergies Allergy/AdvReac Type Severity Reaction Status Date / Time No Known Drug Allergies Allergy Verified 03/27/17 20:27 Medications: Current Medications Acetaminophen (Tylenol) 650 mg PO Q4H PRN PRN Reason: Headache/Fever or Pain Albuterol Sulfate (Ventolin) 2.5 mg NEB [id number] PRN PRN Reason: Wheezing Albuterol/Ipratropium (Duoneb) 3 ml NEB [id number] [facility] Last Admin: 05/29/17 11:26 Dose: 3 ml Aspirin (Aspirin Chewable) 81 mg PO DAILY [facility] Last Admin: 05/29/17 09:28 Dose: 81 mg Atorvastatin Calcium (Lipitor) 10 mg PO HS [facility] Last Admin: 05/28/17 22:42 Dose: 10 mg Benzonatate (Tessalon) 100 mg PO Q4H PRN PRN Reason: Cough Dextrose/Water (Dextrose 50%) 25 gm SLOW IVP PRN PRN PRN Reason: Hypoglycemia Docusate Sodium (Colace) 100 mg PO BID [facility] Last Admin: 05/29/17 09:29 Dose: 100 mg Furosemide (Lasix) 80 mg SLOW IVP 0600,1400 [facility] Last Admin: 05/29/17 06:06 Dose: 80 mg Glucagon (Glucagon) 1 mg IM PRN PRN PRN Reason: Hypoglycemia Guaifenesin/Dextromethorphan (Robitussin Dm) 15 ml PO Q4H PRN PRN Reason: Cough Last Admin: 05/29/17 09:34 Dose: 15 ml Heparin Sodium (Porcine) (Heparin) 5,000 units SC TID [facility] Last Admin: 05/29/17 09:29 Dose: 5,000 units Hydralazine HCl (Apresoline) 10 mg SLOW IVP Q4H PRN PRN Reason: Blood Pressure Last Admin: 05/26/17 21:25 Dose: 10 mg Hydralazine HCl (Apresoline) 50 mg PO TID [facility] Last Admin: 05/29/17 09:28 Dose: 50 mg Dextrose/Water (D5w) 1,000 mls @ 0 mls/hr IV .Q0M PRN; As Directed PRN Reason: Hypoglycemia Insulin Detemir 10 units/ (Miscellaneous Medication) 0.1 mls @ 0 mls/hr SC QAM [facility] Last Admin: 05/29/17 09:29 Dose: 0.1 mls Insulin Human Lispro (Humalog) 0 units SC .MILD SLIDING SCALE PRN PRN Reason: Mild Correctional Scale Last Admin: 05/29/17 11:53 Dose: 2 unit Isosorbide Dinitrate (Isordil) 20 mg PO TID [facility] Last Admin: 05/29/17 09:28 Dose: 20 mg Labetalol HCl (Normodyne) 10 mg SLOW IVP Q4H PRN PRN Reason: SBP Greater Than 180 Labetalol HCl (Normodyne) 50 mg PO BID [facility] Last Admin: 03/29/18 09:29 Dose: 50 mg Lactulose (Lactulose) 20 gm PO DAILYPRN PRN PRN Reason: Constipation Loratadine (Claritin) 10 mg PO QAM [facility] Last Admin: 05/29/17 09:28 Dose: 10 mg Magnesium Hydroxide (Milk Of Magnesium) 30 ml PO DAILYPRN PRN PRN Reason: Constipation Metolazone (Zaroxolyn) 5 mg PO 0830 [facility] Last Admin: 05/29/17 09:28 Dose: 5 mg Montelukast Sodium (Singulair) 10 mg PO DAILY [facility] Last Admin: 05/29/17 09:30 Dose: 10 mg Ondansetron HCl (Zofran) 4 mg IVP Q6H PRN PRN Reason: Nausea/Vomiting Polyethylene Glycol (Miralax) 17 gm PO DAILY [facility] Last Admin: 05/29/17 09:30 Dose: Not Given Sodium Chloride (Flush - Normal Saline) 10 ml IVF Q12HR [facility] Last Admin: 05/29/17 09:30 Dose: 10 ml Sodium Chloride (Flush - Normal Saline) 10 ml IVF PRN PRN PRN Reason: Saline Flush
[2017-05-29] MEDS: Atorvastatin Calcium 10 MG TAB PO SCH (22:24)
[2017-05-30 05:23] LABS: #Eosinphils 0.1 thou/uL (0.0-0.7); #Lymphocytes 0.9 thou/uL (1.20-3.40); #Monocytes 0.5 thou/uL (0.11-0.59); #Neutrophils 2.2 thou/uL (1.40-6.50); %Basophils 0.4 % (0.0-1.0); %Eosinophils 3.6 % (0.0-10.0); %Lymphocytes 23.6 % (21.0-51.0); %Monocytes 12.2 % (0.0-10.0); %Neutrophils 60.2 % (42.0-75.0); Hemoglobin 9.4 g/dL (14.0-18.0); Mean Corpuscular HGB CONC 29.9 g/dL (32.0-36.0); Mean Corpuscular Hemoglobin 26.1 pg (27.0-31.0); Mean Corpuscular Volume 87.4 fl (80.0-94.0); Platelet Count 216 thou/uL (130-400); RBC Distribution Width 14.6 % (11.5-14.5); White Blood Cell (WBC) Count 3.7 thou/uL (4.8-10.8)
[2017-05-30 05:31] LABS: Anion Gap 10 mmol/L (10-20); BUN (Urea Nitrogen) 35 mg/dL (8.4-25.7); Calc. Creatinine Clearance 62 mL/min (70-130); Calcium 9.2 mg/dL (7.8-10.44); Carbon Dioxide 36 mmol/L (23-31); Chloride 93 mmol/L (98-107); Estimated GFR-MDRD 68; Glucose 80 mg/dL (83-110); Potassium 4.2 mmol/L (3.5-5.1); Sodium 135 mmol/L (136-145)
[2017-05-30] MEDS: Furosemide 100 MG/10 ML VIAL SLOW IVP SCH ×2 (05:55→13:45)
[2017-05-30] MEDS: Montelukast Sodium 10 mg Tablet PO SCH (09:22)
[2017-05-30] MEDS: Labetalol 100 MG TAB PO SCH ×2 (09:22→21:08)
[2017-05-30] MEDS: Insulin Detemir 100 UNITS/ML 10 UNITS in Pre-Filled Syringe 1 EACH SC SCH (09:23)
[2017-05-30] MEDS: Isosorbide Dinitrate 20 MG TAB PO SCH ×3 (09:23→21:08)
[2017-05-30] MEDS: Metolazone 5 MG TAB PO SCH (09:23)
[2017-05-30] MEDS: Loratadine 10 MG TAB PO SCH (09:23)
[2017-05-30] MEDS: hydrALAZINE 25 MG TAB PO SCH ×3 (09:23→21:08)
[2017-05-30] MEDS: Heparin 5,000 UNITS/ML VIAL SC SCH ×3 (09:24→21:07)
[2017-05-30] MEDS: Docusate 100 MG CAP PO SCH ×2 (09:28→21:07)
[2017-05-30] MEDS: Polyethylene Glycol 3350 17 GM Packet PO SCH (09:28)
--- NOTE | 2017-05-30 17:40 | PDOC.PN ---
- Subjective Encounter Start Date: 05/30/17 Encounter Start Time: 07:40 Pt seen for followup re: acute respiratory failure. SOBOE, orthopnea+. No chest pain. - Objective MAR Reviewed: Yes Vital Signs & Weight: Vital Signs (12 hours) Temp Pulse Resp BP BP Pulse Ox 05/30/17 17:06 75 145/76 H 05/30/17 16:05 75 18 05/30/17 12:50 97.8 F 75 18 132/72 100 05/30/17 11:43 78 16 05/30/17 09:23 80 155/72 H 05/30/17 09:22 80 155/72 H 05/30/17 08:00 97.8 F 75 18 05/30/17 07:35 100 05/30/17 07:33 80 16 05/30/17 07:10 97.5 F L 79 18 155/72 H 97 Weight Weight 193 lb 4.8 oz I&O: 05/29/17 05/30/17 05/31/17 06:59 06:59 06:59 Intake Total 1290 1340 Output Total 2074 1999 850 Balance -785 -660 -850 Result Diagrams: 05/30/17 04:25 05/30/17 04:25 Additional Labs: Accuchecks 05/30/17 05/30/17 05/30/17 16:05 11:37 05:49 POC Glucose 100 136 H 100 05/29/17 05/29/17 05/29/17 21:15 16:16 11:48 POC Glucose 52 L* 132 H 175 H Phys Exam - Physical Examination Obesity HEENT: moist MMs Neck: supple JVD Nimesh crackles Cardiovascular: RRR Gastrointestinal: soft Musculoskeletal: edema present Neurological: moves all 4 limbs Psychiatric: normal affect Dx/Plan (1) Acute on chronic respiratory failure with hypoxemia Code(s): J96.21 - ACUTE AND CHRONIC RESPIRATORY FAILURE WITH HYPOXIA Status: Acute Comment: due to CHF exacerbation (2) Diastolic CHF, acute on chronic Code(s): I50.33 - ACUTE ON CHRONIC DIASTOLIC (CONGESTIVE) HEART FAILURE Status : Acute Comment: Continue metolazone, IV furosemide Follow I/O, daily weights. (3) Anasarca Code(s): R60.1 - GENERALIZED EDEMA Status: Acute Comment: continue metolazone, IV furosemide (4) COPD (chronic obstructive pulmonary disease) Status: Chronic Qualifiers: COPD type: chronic bronchitis Comment: stable (5) DM type 2 (diabetes mellitus, type 2) Status: Chronic Qualifiers: Diabetes mellitus usp insulin use: with usp use Diabetes mellitus complication status: with kidney complications Diabetes mellitus complication detail: with chronic kidney disease Chronic kidney disease stage : stage 3 (moderate) Qualified Code(s): E11.22 - Type 2 diabetes mellitus with diabetic chronic kidney disease; N18.3 - Chronic kidney disease, stage 3 ( moderate); N18.3 - Chronic kidney disease, stage 3 (moderate); Z79.4 - [facility] (current) use of insulin; 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 Had an episode of hypoglycemia yesterday, may need to adjust meds if it happens again (6) Dyslipidemia Code(s): E78.5 - HYPERLIPIDEMIA, UNSPECIFIED Status: Chronic Comment: continue statin - Plan out of bed/ambulate * . Review of Systems - Review of Systems Respiratory: Shortness of Breath, SOB with Excertion. negative: Cough, Hemoptysis, Pleuritic Pain, Wheezing Cardiovascular: orthopnea. negative: chest pain, palpitations, paroxysmal nocturnal dyspnea, edema, light headedness - Medications/Allergies Allergies/Adverse Reactions: Allergies Allergy/AdvReac Type Severity Reaction Status Date / Time No Known Drug Allergies Allergy Verified 03/27/17 20:27 Medications: Current Medications Acetaminophen (Tylenol) 650 mg PO Q4H PRN PRN Reason: Headache/Fever or Pain Albuterol Sulfate (Ventolin) 2.5 mg NEB [id number] PRN PRN Reason: Wheezing Albuterol/Ipratropium (Duoneb) 3 ml NEB [id number] [facility] Last Admin: 05/30/17 16:05 Dose: 3 ml Aspirin (Aspirin Chewable) 81 mg PO DAILY [facility] Last Admin: 05/30/17 09:23 Dose: 81 mg Atorvastatin Calcium (Lipitor) 10 mg PO HS [facility] Last Admin: 05/29/17 22:24 Dose: 10 mg Benzonatate (Tessalon) 100 mg PO Q4H PRN PRN Reason: Cough Dextrose/Water (Dextrose 50%) 25 gm SLOW IVP PRN PRN PRN Reason: Hypoglycemia Docusate Sodium (Colace) 100 mg PO BID [facility] Last Admin: 05/30/17 09:28 Dose: Not Given Furosemide (Lasix) 80 mg SLOW IVP 0600,1400 [facility] Last Admin: 05/30/17 13:45 Dose: 80 mg Glucagon (Glucagon) 1 mg IM PRN PRN PRN Reason: Hypoglycemia Guaifenesin/Dextromethorphan (Robitussin Dm) 15 ml PO Q4H PRN PRN Reason: Cough Last Admin: 05/29/17 09:34 Dose: 15 ml Heparin Sodium (Porcine) (Heparin) 5,000 units SC TID [facility] Last Admin: 05/30/17 16:58 Dose: Not Given Hydralazine HCl (Apresoline) 10 mg SLOW IVP Q4H PRN PRN Reason: Blood Pressure Last Admin: 05/26/17 21:25 Dose: 10 mg Hydralazine HCl (Apresoline) 50 mg PO TID [facility] Last Admin: 05/30/17 17:06 Dose: 50 mg Dextrose/Water (D5w) 1,000 mls @ 0 mls/hr IV .Q0M PRN; As Directed PRN Reason: Hypoglycemia Insulin Detemir 10 units/ (Miscellaneous Medication) 0.1 mls @ 0 mls/hr SC [facility] Last Admin: 05/30/17 09:23 Dose: 0.1 mls Insulin Human Lispro (Humalog) 0 units SC .MILD SLIDING SCALE PRN PRN Reason: Mild Correctional Scale Last Admin: 05/29/17 11:53 Dose: 2 unit Isosorbide Dinitrate (Isordil) 20 mg PO TID [facility] Last Admin: 05/30/17 17:07 Dose: 20 mg Labetalol HCl (Normodyne) 10 mg SLOW IVP Q4H PRN PRN Reason: SBP Greater Than 180 Labetalol HCl (Normodyne) 50 mg PO BID [facility] Last Admin: 05/30/17 09:22 Dose: 50 mg Lactulose (Lactulose) 20 gm PO DAILYPRN PRN PRN Reason: Constipation Loratadine (Claritin) 10 mg PO [facility] Last Admin: 05/30/17 09:23 Dose: 10 mg Magnesium Hydroxide (Milk Of Magnesium) 30 ml PO DAILYPRN PRN PRN Reason: Constipation Metolazone (Zaroxolyn) 5 mg PO 0830 [facility] Last Admin: 05/30/17 09:23 Dose: 5 mg Montelukast Sodium (Singulair) 10 mg PO DAILY [facility] Last Admin: 05/30/17 09:22 Dose: 10 mg Ondansetron HCl (Zofran) 4 mg IVP Q6H PRN PRN Reason: Nausea/Vomiting Polyethylene Glycol (Miralax) 17 gm PO DAILY [facility] Last Admin: 05/30/17 09:28 Dose: Not Given Sodium Chloride (Flush - Normal Saline) 10 ml IVF Q12HR [facility] Last Admin: 05/30/17 09:25 Dose: 10 ml Sodium Chloride (Flush - Normal Saline) 10 ml IVF PRN PRN PRN Reason: Saline Flush
[2017-05-30] MEDS: Atorvastatin Calcium 10 MG TAB PO SCH (21:07)
[2017-05-30] MEDS: Guaifenesin DM 100-10/5 ML UDCUP PO PRN (21:08)
[2017-05-31] MEDS: Furosemide 100 MG/10 ML VIAL SLOW IVP SCH ×4 (05:41→21:24)
[2017-05-31] MEDS: Labetalol 100 MG TAB PO SCH ×2 (09:44→21:29)
[2017-05-31] MEDS: Insulin Detemir 100 UNITS/ML 10 UNITS in Pre-Filled Syringe 1 EACH SC SCH (09:44)
[2017-05-31] MEDS: Docusate 100 MG CAP PO SCH ×2 (09:45→21:29)
[2017-05-31] MEDS: Montelukast Sodium 10 mg Tablet PO SCH (09:45)
[2017-05-31] MEDS: Loratadine 10 MG TAB PO SCH (09:46)
[2017-05-31] MEDS: Heparin 5,000 UNITS/ML VIAL SC SCH ×3 (09:46→21:25)
[2017-05-31] MEDS: hydrALAZINE 25 MG TAB PO SCH ×3 (09:46→21:29)
[2017-05-31] MEDS: Isosorbide Dinitrate 20 MG TAB PO SCH ×3 (09:46→21:32)
[2017-05-31] MEDS: Metolazone 5 MG TAB PO SCH (09:48)
[2017-05-31] MEDS: Polyethylene Glycol 3350 17 GM Packet PO SCH (10:08)
--- NOTE | 2017-05-31 14:23 | CON ---
DATE OF SERVICE: 05/31/2017 REASON FOR CONSULTATION: Consultation requested for penile edema. HISTORY OF PRESENT ILLNESS: The patient was admitted on 05/26/2017 with CHF and anasarca. He reports he has had penile swelling before when he gets admitted with CHF and anasarca. Normally, he has frequency 2-3 hours and nocturia x0, but he does have incontinence and wears Depend both day and night. It sounds more functional than anything and he denies having to strain or that he feels incomplete emptying on a routine basis. He had no concerns for retention when the catheter was placed this day which was done so for monitoring I's and O's. PAST MEDICAL HISTORY: Significant for chronic respiratory failure, asthma, diabetes, high cholesterol, hypertension, renal insufficiency. PAST SURGICAL HISTORY: Includes back surgery and circumcision in 2007, which was done for balanitis and possible UTI. ALLERGIES: None. MEDICATIONS: Include albuterol, aspirin 81 mg, Tessalon as needed, docusate twice a day, Lasix 40 mg b.i.d., insulin sliding scale pump, hydralazine 50 t.i.d., insulin 10 units in the morning, ipratropium inhaler or nebulizer, isosorbide nitrate 20 mg daily, labetalol 50 mg twice a day, levocetirizine 5 mg daily, Montelukast 10 mg daily, pravastatin 40 mg at bedtime, polyethylene glycol 70 grams daily. SOCIAL HISTORY: Lives in a group home. He smoked in his 20s, but has not smoked in any recent. He does not drink alcohol or use drugs, uses a wheelchair mainly. REVIEW OF SYSTEMS: Really had prostate cancer screening with PSAs in the past that have been normal. He had a colonoscopy less than 5 years ago that did show polyps. He has no chest pain, no increased shortness of breath. No cough and reports bowels have been regular. FAMILY HISTORY: Significant for mom at 94 of old age. She is 5 days short of her 95th birthday. Father at 36 or 39 of asthma. There are no cancers in either. PHYSICAL EXAMINATION: GENERAL: He is sitting up in the bed with the legs elevated, pelvis is most dependent portion. He is alert and oriented. VITAL SIGNS: Temperature 97.8, blood pressure 155/77, heart rate 75, respiratory rate 18, 100% on 1 liter nasal cannula, he had 550 out for the last shift and catheter is draining yellow urine. He has obvious anasarca based on looking at his arms and legs. HEART: Has regular rate and rhythm. Breath sounds were clear, but diminished inspiratory effort. ABDOMEN: Firm and distended also from edema, but nontender with normoactive bowel sounds. GENITOURINARY: His testes were difficult to palpate given his scrotal edema, but no masses or tenderness were noted. The phallus appeared to be uncircumcised given the amount of edema present, but you could see the glans, which was pink and without lesions with the Hull in place, but there was marked shaft edema and he had lower extremity edema. LABORATORY DATA: Laboratory evaluation reveal anemia of 9.4 and 31.4, BUN and creatinine of 35 and 1.24. This appears to be his baseline, it was up to 2 previously. Urinalysis has not been obtained during this stay. Prior one from March showed 0-3 rbc's and otherwise negative. Four prior urinalyses from did show 7-10 and 4-6 rbc's without infection. We reviewed his history of microscopic hematuria and he was unaware of this and he has not seen an urologist or had a workup for this and we reviewed to get a renal ultrasound for this. ASSESSMENT AND PLAN: We have a 76-year-old male with anasarca and accompanied dependent worsening edema of his pelvic region. At all times, if they could attempt to not have his legs and shoulders higher than his pelvis, then that would help otherwise reduce strangulating the lymph return which makes it harder for the edema to resolve. Otherwise, there is no concern from a standpoint related to the swelling. I would remove the Hull as soon as you are not concerned about strict Is and Os. I'd get a renal ultrasound given his microscopic hematuria and at some point, he can follow up for outpatient cystoscopy. At all times, his scrotum and penis should be elevated as much as possible with the Hull catheter secured appropriately in his case, it is actually secured around the tubing, so that there is not direct pressure on the penis from the catheter and swelling. [facility] HOSPITALYakelin
--- NOTE | 2017-05-31 15:51 | PDOC.PN ---
- Subjective Encounter Start Date: 05/31/17 Encounter Start Time: 07:40 Pt seen for followup re: acute on ch resp failure. Says he feels he is slowly getting better. No nausea or vomiting. - Objective MAR Reviewed: Yes Vital Signs & Weight: Vital Signs (12 hours) Temp Pulse Pulse Pulse Pulse Pulse Resp 05/31/17 15:17 77 12 05/31/17 15:07 77 05/31/17 12:54 77 75 76 79 05/31/17 11:33 77 12 05/31/17 11:24 98.0 F 86 18 05/31/17 09:46 79 05/31/17 09:44 79 05/31/17 07:25 97.9 F 79 18 05/31/17 07:15 97.9 F 79 18 05/31/17 06:43 05/31/17 06:42 77 16 05/31/17 04:00 97.5 F L 77 14 BP BP BP BP BP BP BP 05/31/17 15:17 05/31/17 15:07 118/63 05/31/17 12:54 105/53 L 102/59 L 92/54 L 102/52 L 05/31/17 11:33 05/31/17 11:24 162/75 H 05/31/17 09:46 140/69 05/31/17 09:44 140/69 05/31/17 07:25 140/69 05/31/17 07:15 05/31/17 06:43 05/31/17 06:42 05/31/17 04:00 154/75 H Pulse Ox Pulse Ox 05/31/17 15:17 05/31/17 15:07 05/31/17 12:54 96 05/31/17 11:33 05/31/17 11:24 93 L 05/31/17 09:46 05/31/17 09:44 05/31/17 07:25 96 05/31/17 07:15 96 05/31/17 06:43 97 05/31/17 06:42 05/31/17 04:00 94 L Weight Weight 194 lb 14.4 oz I&O: 05/30/17 05/31/17 06/01/17 06:59 06:59 06:59 Intake Total 1340 1260 Output Total 1999 2277 Balance -912 -9148 Result Diagrams: 05/30/17 04:25 05/30/17 04:25 Additional Labs: Accuchecks 05/30/17 05/30/17 20:41 16:05 POC Glucose 155 H 100 EKG Reviewed by me: Yes (Tele: NSR) Phys Exam - Physical Examination Constitutional: NAD HEENT: moist MMs Neck: supple Nimesh crackles Cardiovascular: RRR Gastrointestinal: soft Musculoskeletal: edema present Neurological: moves all 4 limbs Psychiatric: normal affect Dx/Plan (1) Acute on chronic respiratory failure with hypoxemia Code(s): J96.21 - ACUTE AND CHRONIC RESPIRATORY FAILURE WITH HYPOXIA Status: Acute Comment: from CHF exacerbation (2) Diastolic CHF, acute on chronic Code(s): I50.33 - ACUTE ON CHRONIC DIASTOLIC (CONGESTIVE) HEART FAILURE Status : Acute Comment: Continue metolazone, IV furosemide No significant change in daily weights so far, continue to monitor I/O and weights (3) Anasarca Code(s): R60.1 - GENERALIZED EDEMA Status: Acute Comment: continue metolazone, IV furosemide (4) COPD (chronic obstructive pulmonary disease) Status: Chronic Qualifiers: COPD type: chronic bronchitis Comment: stable (5) DM type 2 (diabetes mellitus, type 2) Status: Chronic Qualifiers: Diabetes mellitus fci insulin use: with terminal gauger use Diabetes mellitus complication status: with kidney complications Diabetes mellitus complication detail: with chronic kidney disease Chronic kidney disease stage : stage 3 (moderate) Qualified Code(s): E11.22 - Type 2 diabetes mellitus with diabetic chronic kidney disease; N18.3 - Chronic kidney disease, stage 3 ( moderate); N18.3 - Chronic kidney disease, stage 3 (moderate); Z79.4 - [facility]P (current) use of insulin; Z79.4 - [facility]P (current) use of insulin; Z79.4 - [facility]P (current) use of insulin; Z79.4 - [facility]P (current) use of insulin Comment: continue accuchecks, insulin sliding scale. No recurrence of hypoglycemia. (6) Dyslipidemia Code(s): E78.5 - HYPERLIPIDEMIA, UNSPECIFIED Status: Chronic Comment: continue statin - Plan * . Review of Systems - Review of Systems Respiratory: SOB with Excertion. negative: Cough, Dry, Shortness of Breath, Hemoptysis, Pleuritic Pain, Sputum, Wheezing Cardiovascular: orthopnea. negative: chest pain, palpitations, paroxysmal nocturnal dyspnea, edema, light headedness - Medications/Allergies Allergies/Adverse Reactions: Allergies Allergy/AdvReac Type Severity Reaction Status Date / Time No Known Drug Allergies Allergy Verified 03/27/17 20:27 Medications: Current Medications Acetaminophen (Tylenol) 650 mg PO Q4H PRN PRN Reason: Headache/Fever or Pain Albuterol Sulfate (Ventolin) 2.5 mg NEB [id number] PRN PRN Reason: Wheezing Albuterol/Ipratropium (Duoneb) 3 ml NEB [id number] [facility] Last Admin: 05/31/17 15:17 Dose: 3 ml Aspirin (Aspirin Chewable) 81 mg PO DAILY [facility] Last Admin: 05/31/17 09:46 Dose: 81 mg Atorvastatin Calcium (Lipitor) 10 mg PO HS [facility] Last Admin: 05/30/17 21:07 Dose: 10 mg Benzonatate (Tessalon) 100 mg PO Q4H PRN PRN Reason: Cough Dextrose/Water (Dextrose 50%) 25 gm SLOW IVP PRN PRN PRN Reason: Hypoglycemia Docusate Sodium (Colace) 100 mg PO BID [facility] Last Admin: 05/31/17 09:45 Dose: 100 mg Furosemide (Lasix) 80 mg SLOW IVP TID [facility] Last Admin: 05/31/17 15:47 Dose: 80 mg Glucagon (Glucagon) 1 mg IM PRN PRN PRN Reason: Hypoglycemia Guaifenesin/Dextromethorphan (Robitussin Dm) 15 ml PO Q4H PRN PRN Reason: Cough Last Admin: 05/30/17 21:08 Dose: 15 ml Heparin Sodium (Porcine) (Heparin) 5,000 units SC TID [facility] Last Admin: 05/31/17 15:00 Dose: 5,000 units Hydralazine HCl (Apresoline) 10 mg SLOW IVP Q4H PRN PRN Reason: Blood Pressure Last Admin: 05/26/17 21:25 Dose: 10 mg Hydralazine HCl (Apresoline) 50 mg PO TID [facility] Last Admin: 05/31/17 15:07 Dose: Not Given Dextrose/Water (D5w) 1,000 mls @ 0 mls/hr IV .Q0M PRN; As Directed PRN Reason: Hypoglycemia Insulin Detemir 10 units/ (Miscellaneous Medication) 0.1 mls @ 0 mls/hr [facility] Last Admin: 05/31/17 09:44 Dose: 0.1 mls Insulin Human Lispro (Humalog) 0 units SC .MILD SLIDING SCALE PRN PRN Reason: Mild Correctional Scale Last Admin: 05/29/17 11:53 Dose: 2 unit Isosorbide Dinitrate (Isordil) 20 mg PO TID [facility] Last Admin: 05/31/17 14:58 Dose: 20 mg Labetalol HCl (Normodyne) 10 mg SLOW IVP Q4H PRN PRN Reason: SBP Greater Than 180 Labetalol HCl (Normodyne) 50 mg PO BID [facility] Last Admin: 05/31/17 09:44 Dose: 50 mg Lactulose (Lactulose) 20 gm PO DAILYPRN PRN PRN Reason: Constipation Loratadine (Claritin) [facility] [place] Last Admin: 05/31/17 09:46 Dose: 10 mg Magnesium Hydroxide (Milk Of Magnesium) 30 ml PO DAILYPRN PRN PRN Reason: Constipation Metolazone (Zaroxolyn) 10 mg PO 0830 [facility] Last Admin: 05/31/17 09:48 Dose: 10 mg Montelukast Sodium (Singulair) 10 mg PO DAILY [facility] Last Admin: 05/31/17 09:45 Dose: 10 mg Ondansetron HCl (Zofran) 4 mg IVP Q6H PRN PRN Reason: Nausea/Vomiting Last Admin: 05/31/17 11:22 Dose: 4 mg Polyethylene Glycol (Miralax) 17 gm PO DAILY [facility] Last Admin: 05/31/17 10:08 Dose: Not Given Sodium Chloride (Flush - Normal Saline) 10 ml IVF Q12HR [facility] Last Admin: 05/31/17 10:08 Dose: Not Given Sodium Chloride (Flush - Normal Saline) 10 ml IVF PRN PRN PRN Reason: Saline Flush
[2017-05-31] MEDS: Atorvastatin Calcium 10 MG TAB PO SCH (21:29)
[2017-06-01 01:20] LABS: WBC/HPF 21-50 HPF (0-3)
[2017-06-01 01:21] LABS: Bacteria/HPF None Seen HPF (None Seen); Crystals/HPF None Seen HPF (Negative); Other Casts/LPF None Seen LPF (0-3 Hyaline); Oval Fat Bodies/HPF None Seen HPF (None Seen); Renal Epithelial None Seen HPF (0-3); Sperm/HPF None Seen HPF (None Seen); Squamous Epithelial 0-3 HPF (0-3); Transitional Epithelial 0-3 HPF (0-3); Trichomonas/HPF None Seen HPF (None Seen); Yeast-All Forms 3+ HPF (None Seen)
[2017-06-01] MEDS: Metolazone 5 MG TAB PO SCH (09:06)
--- NOTE | 2017-06-01 09:26 | ULT ---
ULTRASOUND RENAL BILATERAL STANDARD: HISTORY: Microhematuria. COMPARISON: None. FINDINGS: The right kidney measures 9.2 x 3.9 x 5 cm. The left kidney measures 11.1 x 5.2 x 7.1 cm. Mild incr eased echotexture of the renal cortices. No mass, hydronephrosis, or abnormal calcifications. The b ladder is mildly thickened. IMPRESSION: No evidence of obstructive uropathy. POS: SHAE
[2017-06-01] MEDS: Furosemide 100 MG/10 ML VIAL SLOW IVP SCH ×3 (09:54→22:25)
[2017-06-01] MEDS: Heparin 5,000 UNITS/ML VIAL SC SCH ×3 (09:54→22:26)
[2017-06-01] MEDS: Isosorbide Dinitrate 20 MG TAB PO SCH ×3 (09:55→22:25)
[2017-06-01] MEDS: Montelukast Sodium 10 mg Tablet PO SCH (09:55)
[2017-06-01] MEDS: Loratadine 10 MG TAB PO SCH (09:55)
[2017-06-01] MEDS: Docusate 100 MG CAP PO SCH ×2 (09:55→22:25)
[2017-06-01] MEDS: Labetalol 100 MG TAB PO SCH ×2 (09:56→22:23)
[2017-06-01] MEDS: hydrALAZINE 25 MG TAB PO SCH ×3 (10:03→22:25)
[2017-06-01] MEDS: Polyethylene Glycol 3350 17 GM Packet PO SCH (10:22)
--- NOTE | 2017-06-01 11:26 | PDOC.PN ---
- Subjective Encounter Start Date: 06/01/17 Encounter Start Time: 07:50 -: old records requested/rev Patient seen and examined. No new complaints. No overnight events - Objective MAR Reviewed: Yes Vital Signs & Weight: Vital Signs (12 hours) Temp Pulse Resp BP BP Pulse Ox 06/01/17 09:56 86 130/63 06/01/17 08:59 97.3 F L 86 18 130/63 98 06/01/17 07:57 96 06/01/17 07:56 84 16 06/01/17 04:00 97.5 F L 78 16 148/70 H 100 06/01/17 02:24 95 05/31/17 23:55 97.5 F L 74 12 117/66 100 Weight Weight 190 lb 9.6 oz I&O: 05/31/17 06/01/17 06/02/17 06:59 06:59 06:59 Intake Total 1260 980 Output Total 2375 1950 Balance -1115 970 Result Diagrams: 05/30/17 04:25 05/30/17 04:25 Additional Labs: Accuchecks 06/01/17 06/01/17 06/01/17 10:37 06:12 05:39 POC Glucose 169 H 125 H Less than 35 L* 05/31/17 05/31/17 05/31/17 20:22 16:40 11:09 POC Glucose 67 L 116 H 124 H 05/31/17 05:30 POC Glucose 105 Radiology Reviewed by me: Yes (renal us) EKG Reviewed by me: Yes Phys Exam - Physical Examination Constitutional: NAD HEENT: PERRLA, moist MMs, sclera anicteric Neck: no JVD, supple Respiratory: no wheezing, no rales, no rhonchi reduced air entry at base Cardiovascular: RRR, no significant murmur, no rub Gastrointestinal: soft, non-tender, no distention, positive bowel sounds Musculoskeletal: pulses present, edema present scrotal and penile edema Neurological: non-focal, normal sensation, moves all 4 limbs Lymphatic: no nodes Psychiatric: normal affect Skin: no rash, normal turgor Dx/Plan (1) Acute on chronic diastolic ACC/AHA stage C congestive heart failure Code(s): I50.33 - ACUTE ON CHRONIC DIASTOLIC (CONGESTIVE) HEART FAILURE Status : Acute (2) Acute on chronic respiratory failure with hypoxemia Code(s): J96.21 - ACUTE AND CHRONIC RESPIRATORY FAILURE WITH HYPOXIA Status: Acute Comment: from CHF exacerbation (3) Anasarca Code(s): R60.1 - GENERALIZED EDEMA Status: Acute Comment: continue metolazone, IV furosemide (4) Hypoglycemia associated with type 2 diabetes mellitus Code(s): E11.649 - TYPE 2 DIABETES MELLITUS WITH HYPOGLYCEMIA WITHOUT COMA Status: Acute (5) Anemia, normocytic normochromic Code(s): D64.9 - ANEMIA, UNSPECIFIED Status: Chronic (6) CKD (chronic kidney disease), stage III Code(s): N18.3 - CHRONIC KIDNEY DISEASE, STAGE 3 (MODERATE) Status: Chronic (7) COPD (chronic obstructive pulmonary disease) Status: Chronic Qualifiers: COPD type: chronic bronchitis Comment: stable (8) DM type 2 (diabetes mellitus, type 2) Status: Chronic Qualifiers: 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: 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 renewal 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 use Diabetes mellitus complication status: with kidney complications Diabetes mellitus complication detail: with chronic kidney disease Chronic kidney disease stage : stage 3 (moderate) Qualified Code(s): E11.22 - Type 2 diabetes mellitus with diabetic chronic kidney disease; N18.3 - Chronic kidney disease, stage 3 ( moderate); N18.3 - Chronic kidney disease, stage 3 (moderate); Z79.4 - nursing home (current) use of insulin; Z79.4 - nursing home (current) use of insulin; Z79.4 - long term (current) use of insulin; Z79.4 - long term (current) use of insulin Comment: continue accuchecks, insulin sliding scale. (9) Dyslipidemia Code(s): E78.5 - HYPERLIPIDEMIA, UNSPECIFIED Status: Chronic Comment: continue statin (10) Elevated troponin Code(s): R74.8 - ABNORMAL LEVELS OF OTHER SERUM ENZYMES Status: Chronic Comment: Demand ischemia without ACS, follow clinically (11) Physical deconditioning Code(s): R53.81 - OTHER MALAISE Status: Chronic - Plan cont current plan of care, plan discussed w/ family * still has lot of edema, will need to continue diuresis until he become euvolemic * will monitor bmp and replace electrolytes as needed * will adjust BP meds as per vitals * medication reviewed as below * symptomatic treatment. * discussed with son Review of Systems - Review of Systems Other: not reliable with pt as pt is less involved with his care - Medications/Allergies Allergies/Adverse Reactions: Allergies Allergy/AdvReac Type Severity Reaction Status Date / Time No Known Drug Allergies Allergy Verified 03/27/17 20:27 Medications: Current Medications Acetaminophen (Tylenol) 650 mg PO Q4H PRN PRN Reason: Headache/Fever or Pain Albuterol Sulfate (Ventolin) 2.5 mg NEB [id number] PRN PRN Reason: Wheezing Albuterol/Ipratropium (Duoneb) 3 ml NEB [id number] [facility] Last Admin: 06/01/17 07:56 Dose: 3 ml Aspirin (Aspirin Chewable) 81 mg PO DAILY [facility] Last Admin: 06/01/17 09:55 Dose: 81 mg Atorvastatin Calcium (Lipitor) 10 mg PO HS [facility] Last Admin: 05/31/17 21:29 Dose: 10 mg Benzonatate (Tessalon) 100 mg PO Q4H PRN PRN Reason: Cough Dextrose/Water (Dextrose 50%) 25 gm SLOW IVP PRN PRN PRN Reason: Hypoglycemia Last Admin: 06/01/17 05:41 Dose: 25 gm Docusate Sodium (Colace) 100 mg PO BID [facility] Last Admin: 06/01/17 09:55 Dose: 100 mg Furosemide (Lasix) 80 mg SLOW IVP TID [facility] Last Admin: 06/01/17 09:54 Dose: 80 mg Glucagon (Glucagon) 1 mg IM PRN PRN PRN Reason: Hypoglycemia Guaifenesin/Dextromethorphan (Robitussin Dm) 15 ml PO Q4H PRN PRN Reason: Cough Last Admin: 05/30/17 21:08 Dose: 15 ml Heparin Sodium (Porcine) (Heparin) 5,000 units SC TID [facility] Last Admin: 06/01/17 09:54 Dose: 5,000 units Hydralazine HCl (Apresoline) 10 mg SLOW IVP Q4H PRN PRN Reason: Blood Pressure Last Admin: 05/26/17 21:25 Dose: 10 mg Hydralazine HCl (Apresoline) 50 mg PO TID [facility] Last Admin: 05/31/17 21:29 Dose: 50 mg Dextrose/Water (D5w) 1,000 mls @ 0 mls/hr IV .Q0M PRN; As Directed PRN Reason: Hypoglycemia Insulin Human Lispro (Humalog) 0 units SC .MILD SLIDING SCALE PRN PRN Reason: Mild Correctional Scale Last Admin: 05/29/17 11:53 Dose: 2 unit Isosorbide Dinitrate (Isordil) 20 mg PO TID [facility] Last Admin: 06/01/17 09:55 Dose: 20 mg Labetalol HCl (Normodyne) 10 mg SLOW IVP Q4H PRN PRN Reason: SBP Greater Than 180 Labetalol HCl (Normodyne) 50 mg PO BID [facility] Last Admin: 06/01/17 09:56 Dose: 50 mg Lactulose (Lactulose) 20 gm PO DAILYPRN PRN PRN Reason: Constipation Loratadine (Claritin) 10 mg PO QAM [facility] Last Admin: 06/01/17 09:55 Dose: 10 mg Magnesium Hydroxide (Milk Of Magnesium) 30 ml PO DAILYPRN PRN PRN Reason: Constipation Metolazone (Zaroxolyn) 10 mg PO 0830 [facility] Last Admin: 06/01/17 09:06 Dose: 10 mg Montelukast Sodium (Singulair) 10 mg PO DAILY [facility] Last Admin: 06/01/17 09:55 Dose: 10 mg Ondansetron HCl (Zofran) 4 mg IVP Q6H PRN PRN Reason: Nausea/Vomiting Last Admin: 05/31/17 11:22 Dose: 4 mg Polyethylene Glycol (Miralax) 17 gm PO DAILY [facility] Last Admin: 06/01/17 10:22 Dose: 17 gm Sodium Chloride (Flush - Normal Saline) 10 ml IVF Q12HR [facility] Last Admin: 06/01/17 10:02 Dose: 10 ml Sodium Chloride (Flush - Normal Saline) 10 ml IVF PRN PRN PRN Reason: Saline Flush Last Admin: 06/01/17 05:42 Dose: 10 ml Tamsulosin HCl (Flomax) 0.4 mg PO HS [facility]
--- NOTE | 2017-06-01 11:37 | PRG ---
DATE OF SERVICE: 06/01/2017 SUBJECTIVE: Patient did well overnight. He has not really examined his penis to see if there is any worsening of his swelling. He has not noticed anything further. PHYSICAL EXAMINATION: On exam, he has been afebrile. Blood pressure is stable , heart rate running in 70s, satting 100% on 1 liter nasal cannula with respiratory rate of 18, and he had over 2 liters out in the past 24 hours. The urine draining in the tubing is yellow. On exam, there is worsening penile edema, making it more difficult to evaluate the glans, but everything is soft and nontender including the scrotum. A renal ultrasound had been ordered given his microscopic hematuria and this revealed nothing of concern and did show that his bladder looked thickened; however, this is difficult to assess given it was decompressed with the [place]. It might be worth adding tamsulosin, so when the catheter comes out, he may void more readily. Again I would ask if that the catheter be removed when there is no significant concern for strict I's and O's and his diuresis is complete. ASSESSMENT: We have a 76-year-old man with anasarca and worsening penile edema basically strangulating his lymph return back to his pelvis by keeping him bent with his legs and torso upright. I lowered his legs and I lowered his head to some degree and depending on how his pulmonary status goes, then we would like to stretch out the pelvis area, so that there can be some return of the lymph edema from this area. I reviewed this with the aideRaquel DELAROSA
[2017-06-01] MEDS ORDERED: Fluconazole 100 MG TAB PO SCH ×2 (14:45→20:45)
[2017-06-01] MEDS: Tamsulosin HCl 0.4 MG CAP PO SCH (22:25)
[2017-06-02] MEDS: Fluconazole 100 MG TAB PO SCH (08:31)
[2017-06-02] MEDS: Loratadine 10 MG TAB PO SCH (08:32)
[2017-06-02] MEDS: Docusate 100 MG CAP PO SCH ×2 (08:32→20:29)
[2017-06-02] MEDS: Metolazone 5 MG TAB PO SCH (08:32)
[2017-06-02] MEDS: hydrALAZINE 25 MG TAB PO SCH ×3 (08:32→20:28)
[2017-06-02] MEDS: Heparin 5,000 UNITS/ML VIAL SC SCH ×3 (08:33→20:29)
[2017-06-02] MEDS: Polyethylene Glycol 3350 17 GM Packet PO SCH (08:40)
[2017-06-02] MEDS: Montelukast Sodium 10 mg Tablet PO SCH (09:53)
[2017-06-02] MEDS: Labetalol 100 MG TAB PO SCH ×2 (09:53→20:28)
[2017-06-02] MEDS: Isosorbide Dinitrate 20 MG TAB PO SCH ×3 (10:11→20:29)
[2017-06-02] MEDS: Furosemide 100 MG/10 ML VIAL SLOW IVP SCH ×3 (10:11→20:30)
--- NOTE | 2017-06-02 10:27 | PDOC.PN ---
- Subjective Encounter Start Date: 06/02/17 Encounter Start Time: 08:30 Patient seen and examined. No new complaints. No overnight events - Objective MAR Reviewed: Yes Vital Signs & Weight: Vital Signs (12 hours) Temp Pulse Resp BP Pulse Ox 06/02/17 09:53 89 06/02/17 08:32 86 06/02/17 07:18 86 20 92 L 06/02/17 04:00 98.7 F 88 19 137/65 99 06/02/17 02:43 94 L 06/02/17 00:00 16 06/01/17 22:44 95 Weight Weight 191 lb 8 oz I&O: 06/01/17 06/02/17 06/03/17 06:59 06:59 06:59 Intake Total 980 820 Output Total 1950 3250 Balance -970 -2430 Result Diagrams: 05/30/17 04:25 05/30/17 04:25 Additional Labs: Accuchecks 06/02/17 06/01/17 06/01/17 05:53 22:33 16:52 POC Glucose 222 H 247 H 198 H 06/01/17 10:37 POC Glucose 169 H EKG Reviewed by me: Yes Phys Exam - Physical Examination Constitutional: NAD HEENT: PERRLA, moist MMs, sclera anicteric Neck: no JVD, supple Respiratory: no wheezing, no rales, no rhonchi Cardiovascular: RRR, no significant murmur, no rub Gastrointestinal: soft, non-tender, no distention, positive bowel sounds Musculoskeletal: pulses present, edema present Neurological: non-focal Lymphatic: no nodes Psychiatric: normal affect Skin: no rash, normal turgor Dx/Plan (1) Acute on chronic diastolic ACC/AHA stage C congestive heart failure Code(s): I50.33 - ACUTE ON CHRONIC DIASTOLIC (CONGESTIVE) HEART FAILURE Status : Acute (2) Acute on chronic respiratory failure with hypoxemia Code(s): J96.21 - ACUTE AND CHRONIC RESPIRATORY FAILURE WITH HYPOXIA Status: Acute Comment: from CHF exacerbation (3) Anasarca Code(s): R60.1 - GENERALIZED EDEMA Status: Acute Comment: continue metolazone, IV furosemide (4) Hypoglycemia associated with type 2 diabetes mellitus Code(s): E11.649 - TYPE 2 DIABETES MELLITUS WITH HYPOGLYCEMIA WITHOUT COMA Status: Acute (5) Anemia, normocytic normochromic Code(s): D64.9 - ANEMIA, UNSPECIFIED Status: Chronic (6) CKD (chronic kidney disease), stage III Code(s): N18.3 - CHRONIC KIDNEY DISEASE, STAGE 3 (MODERATE) Status: Chronic (7) COPD (chronic obstructive pulmonary disease) Status: Chronic Qualifiers: COPD type: chronic bronchitis Comment: stable (8) DM type 2 (diabetes mellitus, type 2) Status: Chronic Qualifiers: Diabetes mellitus medical terminologist insulin use: with skilled nursing use Diabetes mellitus complication status: with kidney complications Diabetes mellitus complication detail: with chronic kidney disease Chronic kidney disease stage : stage 3 (moderate) Qualified Code(s): E11.22 - Type 2 diabetes mellitus with diabetic chronic kidney disease; N18.3 - Chronic kidney disease, stage 3 ( moderate); N18.3 - Chronic kidney disease, stage 3 (moderate); Z79.4 - retirement (current) use of insulin; Z79.4 - buttermaker (current) use of insulin; Z79.4 - buttermaker (current) use of insulin; Z79.4 - buttermaker (current) use of insulin Comment: continue accuchecks, insulin sliding scale. (9) Dyslipidemia Code(s): E78.5 - HYPERLIPIDEMIA, UNSPECIFIED Status: Chronic Comment: continue statin (10) Elevated troponin Code(s): R74.8 - ABNORMAL LEVELS OF OTHER SERUM ENZYMES Status: Chronic Comment: Demand ischemia without ACS, follow clinically (11) Physical deconditioning Code(s): R53.81 - OTHER MALAISE Status: Chronic - Plan cont current plan of care, plan discussed w/ family * pt still has lot of edema, and needs more diuresis * discussed with * medication reviewed as below * symptomatic treatment * stable but not ready for discharge * high risk for readmission * will monitor labs. Review of Systems - Review of Systems Other: not reliable with pt because of his level of cognitive status - Medications/Allergies Allergies/Adverse Reactions: Allergies Allergy/AdvReac Type Severity Reaction Status Date / Time No Known Drug Allergies Allergy Verified 03/27/17 20:27 Medications: Current Medications Acetaminophen (Tylenol) 650 mg PO Q4H PRN PRN Reason: Headache/Fever or Pain Albuterol Sulfate (Ventolin) 2.5 mg NEB [id number] PRN PRN Reason: Wheezing Albuterol/Ipratropium (Duoneb) 3 ml NEB [id number] [facility] Last Admin: 06/02/17 07:18 Dose: 3 ml Aspirin (Aspirin Chewable) 81 mg PO DAILY [facility] Last Admin: 06/02/17 08:32 Dose: 81 mg Benzonatate (Tessalon) 100 mg PO Q4H PRN PRN Reason: Cough Dextrose/Water (Dextrose 50%) 25 gm SLOW IVP PRN PRN PRN Reason: Hypoglycemia Last Admin: 06/01/17 05:41 Dose: 25 gm Docusate Sodium (Colace) 100 mg PO BID [facility] Last Admin: 06/02/17 08:32 Dose: 100 mg Fluconazole (Diflucan) 100 mg PO DAILY [facility] Last Admin: 06/02/17 08:31 Dose: 100 mg Furosemide (Lasix) 80 mg SLOW IVP TID [facility] Last Admin: 06/02/17 10:11 Dose: 80 mg Glucagon (Glucagon) 1 mg IM PRN PRN PRN Reason: Hypoglycemia Guaifenesin/Dextromethorphan (Robitussin Dm) 15 ml PO Q4H PRN PRN Reason: Cough Last Admin: 05/30/17 21:08 Dose: 15 ml Heparin Sodium (Porcine) (Heparin) 5,000 units SC TID [facility] Last Admin: 06/02/17 08:33 Dose: 5,000 units Hydralazine HCl (Apresoline) 10 mg SLOW IVP Q4H PRN PRN Reason: Blood Pressure Last Admin: 05/26/17 21:25 Dose: 10 mg Hydralazine HCl (Apresoline) 50 mg PO TID [facility] Last Admin: 06/02/17 08:32 Dose: 50 mg Dextrose/Water (D5w) 1,000 mls @ 0 mls/hr IV .Q0M PRN; As Directed PRN Reason: Hypoglycemia Insulin Human Lispro (Humalog) 0 units SC .MILD SLIDING SCALE PRN PRN Reason: Mild Correctional Scale Last Admin: 05/29/17 11:53 Dose: 2 unit Isosorbide Dinitrate (Isordil) 20 mg PO TID [facility] Last Admin: 06/02/17 10:11 Dose: 20 mg Labetalol HCl (Normodyne) 10 mg SLOW IVP Q4H PRN PRN Reason: SBP Greater Than 180 Labetalol HCl (Normodyne) 50 mg PO BID [facility] Last Admin: 06/02/17 09:53 Dose: 50 mg Lactulose (Lactulose) 20 gm PO DAILYPRN PRN PRN Reason: Constipation Loratadine (Claritin) 10 mg PO QAM [facility] Last Admin: 06/02/17 08:32 Dose: 10 mg Magnesium Hydroxide (Milk Of Magnesium) 30 ml PO DAILYPRN PRN PRN Reason: Constipation Metolazone (Zaroxolyn) 10 mg PO 0830 [facility] Last Admin: 06/02/17 08:32 Dose: 10 mg Montelukast Sodium (Singulair) 10 mg PO DAILY [facility] Last Admin: 06/02/17 09:53 Dose: 10 mg Ondansetron HCl (Zofran) 4 mg IVP Q6H PRN PRN Reason: Nausea/Vomiting Last Admin: 05/31/17 11:22 Dose: 4 mg Polyethylene Glycol (Miralax) 17 gm PO DAILY [facility] Last Admin: 06/02/17 08:40 Dose: 17 gm Sodium Chloride (Flush - Normal Saline) 10 ml IVF Q12HR [facility] Last Admin: 06/02/17 08:40 Dose: 10 ml Sodium Chloride (Flush - Normal Saline) 10 ml IVF PRN PRN PRN Reason: Saline Flush Last Admin: 06/01/17 16:04 Dose: 10 ml Tamsulosin HCl (Flomax) 0.4 mg PO HS [facility] Last Admin: 06/01/17 22:25 Dose: 0.4 mg
[2017-06-02] MEDS: HumaLOG 300 UNITS/3 ML VIAL SC PRN ×3 (11:52→20:36)
--- NOTE | 2017-06-02 15:36 | CON ---
DATE OF CONSULTATION: 06/02/2017 REASON FOR CONSULTATION: Suspected cardiac amyloidosis. HISTORY OF PRESENT ILLNESS: Mr. Nelson is a 76-year-old black male who was diagnosed with diastolic heart failure in 03/2017. He has had multiple admissions for anasarca and shortness of breath. He w as discharged from this facility in April to [facility]. He was readmitted on 018 for shortness of breath and anasarca. The patient's ejection fraction is 60%-65%. He has severe concentric left ventricular hypertrophy, mild mitral regurgitation, moderate to severe tricuspid reg urgitation and pulmonary artery hypertension. He also has a history of pleural effusion and diabetes . Dr. Chaidez is his viscera washer. We were asked to evaluate the patient for possible cardiac amyl oidosis. The patient was seen at bedside. History was obtained from his as the patient is somn olent. He does arouse to stimulation, but does not answer many questions. states that he has g nasrin progressively weaker over the last few months to the point where he has lived in a fpc as she is unable to take care of him. He did walk with PT today, but had a syncopal episode after t reatment. PAST MEDICAL HISTORY: 1. Hypertension. 2. High cholesterol. 3. Diabetes. 4. Renal insufficiency. 5. Diastolic heart failure. PAST SURGICAL HISTORY: Back surgery. ALLERGIES: No known drug allergies. CURRENT MEDICATIONS: 1. Aspirin 81 mg daily. 2. Colace b.i.d. 3. Diflucan 100 mg daily. 4. Lasix 80 mg IV t.i.d. 5. Heparin 5000 units subcu t.i.d. 6. Apresoline 50 mg t.i.d. 7. Humalog p.r.n. 8. Isosorbide dinitrate 20 mg t.i.d. 9. Labetalol p.r.n. 10. Zaroxolyn daily. 11. MiraLax daily. 12. Flomax 0.4 mg daily. FAMILY HISTORY: Positive for coronary artery disease. SOCIAL HISTORY: , now lives in a fpc. No current alcohol, tobacco or illicit drug u se. REVIEW OF SYSTEMS: Unable to obtain secondary to the patient's somnolence. PHYSICAL EXAMINATION: VITAL SIGNS: Temperature is 97.8, pulse is 86, respiratory rate 18, BP is 146/70, he is 100% on 2 li ters. GENERAL: Chronically ill-appearing male, in no acute distress. HEENT: Normocephalic, atraumatic. Pupils equal and reactive to light. NECK: Supple. CARDIOVASCULAR: Regular rate and rhythm. LUNGS: Diminished anterior. ABDOMEN: Soft, nontender, no organomegaly palpable. EXTREMITIES: He has got 2+ edema in his bilateral lower extremities. SKIN: No rash. HEMATOLOGIC: No petechia or purpura. NEUROLOGIC: Nonfocal. PSYCHIATRIC: The patient is sleepy, but responsive. PERTINENT LABORATORY AND X-RAYS: Current WBCs are 3.7, hemoglobin 9.4, hematocrit 31.4, platelet cou nt 216,000, 60% neutrophils, 24% lymphocytes. Sodium is 135, potassium 4.2, chloride 93, CO2 is 36, BUN is 35, creatinine 1.24, calcium is 9.2. BNP is 520.6, troponin 0.273, total bilirubin is 0.3, T is 26, ALT 34, alkaline phosphatase is 91, serum total protein is 7.5, albumin 3.1, globulin 4.4. Urine had yeast. He had random protein on prior visit of , had a 24-hour protein of 563. IMPRESSION: 1. Diastolic heart failure. 2. Anasarca. 3. 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 DISCUSSION: Case was discussed in detail with Dr. Starkey. The patient does have some symptoms of c ardiac amyloidosis, definitive diagnosis would be for a cardiac biopsy or a fat pad biopsy; however, the patient would not be a candidate for a heart transplant, which would be the definitive treatment for performance status and multiple medical problems. We will be conservative in our approach and be priyanka with a serum protein electrophoresis. This was discussed in detail with his who agrees in a conservative approach. Thank you for the consult.
[2017-06-02] MEDS: Tamsulosin HCl 0.4 MG CAP PO SCH (20:29)
[2017-06-03 07:37] LABS: Hemoglobin 9.3 g/dL (14.0-18.0); Mean Corpuscular HGB CONC 29.7 g/dL (32.0-36.0); Mean Corpuscular Hemoglobin 25.7 pg (27.0-31.0); Mean Corpuscular Volume 86.8 fl (80.0-94.0); Mean Platelet Volume 6.9 fL (7.4-10.4); Platelet Count 209 thou/uL (130-400); RBC Distribution Width 14.4 % (11.5-14.5); Red Blood Cell (RBC) Count 3.61 mill/uL (4.70-6.10)
[2017-06-03 07:59] LABS: ALT (SGPT) 20 U/L (8-55); AST (SGOT) 18 U/L (5-34); Albumin 2.7 g/dL (3.4-4.8); Alkaline Phosphatase 79 U/L (40-150); BUN (Urea Nitrogen) 39 mg/dL (8.4-25.7); Bilirubin, Total 0.4 mg/dL (0.2-1.2); Calc. Creatinine Clearance 49 mL/min (70-130); Calcium 9.5 mg/dL (7.8-10.44); Estimated GFR-MDRD 52; Globulin 3.9 g/dL (2.4-3.5); Glucose 170 mg/dL (83-110); Magnesium 1.8 mg/dL (1.6-2.6); Protein, Total 6.6 g/dL (5.8-8.1); Uric Acid 12.4 mg/dL (3.5-7.2)
[2017-06-03 08:09] LABS: Anion Gap 15 mmol/L (10-20); Carbon Dioxide 39 mmol/L (23-31); Chloride 84 mmol/L (98-107); Potassium 3.7 mmol/L (3.5-5.1); Sodium 134 mmol/L (136-145)
[2017-06-03] MEDS: Furosemide 100 MG/10 ML VIAL SLOW IVP SCH ×2 (08:33→15:58)
[2017-06-03] MEDS: Montelukast Sodium 10 mg Tablet PO SCH (08:34)
[2017-06-03] MEDS: Docusate 100 MG CAP PO SCH ×3 (08:34→21:46)
[2017-06-03] MEDS: Metolazone 5 MG TAB PO SCH (08:34)
[2017-06-03] MEDS: Fluconazole 100 MG TAB PO SCH (08:34)
[2017-06-03] MEDS: Labetalol 100 MG TAB PO SCH ×2 (08:35→21:32)
[2017-06-03] MEDS: Isosorbide Dinitrate 20 MG TAB PO SCH ×3 (08:35→21:32)
[2017-06-03] MEDS: hydrALAZINE 25 MG TAB PO SCH ×3 (08:35→21:33)
[2017-06-03] MEDS: Loratadine 10 MG TAB PO SCH (08:36)
[2017-06-03] MEDS: Heparin 5,000 UNITS/ML VIAL SC SCH ×3 (08:36→21:34)
[2017-06-03] MEDS: Polyethylene Glycol 3350 17 GM Packet PO SCH (08:36)
[2017-06-03] MEDS ORDERED: Insulin Detemir 100 UNITS/ML 8 UNITS in Pre-Filled Syringe 1 EACH SC SCH (09:00)
[2017-06-03 09:18] LABS: Eosinophils 1 % (0-10); Hypochromia SLIGHT = 6-15 cells (100X) (0-5/hpf); Lymphocytes 23 % (21-51); MDiff Complete? YES; Monocytes 21 % (0-10); Neutrophil 55 % (42-75); Polychromasia SLIGHT = 2-3 cells (100X) (0-2/hpf)
--- NOTE | 2017-06-03 12:52 | PDOC.PN ---
- Subjective Encounter Start Date: 06/03/17 Encounter Start Time: 09:45 Patient seen and examined. No new complaints. No overnight events - Objective MAR Reviewed: Yes Vital Signs & Weight: Vital Signs (12 hours) Temp Pulse Resp BP Pulse Ox 06/03/17 10:46 83 16 97 06/03/17 08:35 83 06/03/17 08:00 96.5 F L 83 18 137/64 97 06/03/17 07:41 83 16 96 06/03/17 04:00 98.0 F 85 15 137/63 96 06/03/17 02:25 97 Weight Weight 192 lb 8 oz I&O: 06/02/17 06/03/17 06/04/17 06:59 06:59 06:59 Intake Total 820 580 Output Total 3250 1950 Balance -2430 -1370 Result Diagrams: 06/03/17 07:19 06/03/17 07:19 Additional Labs: Accuchecks 06/03/17 06/03/17 06/02/17 10:25 05:34 20:35 POC Glucose 207 H 180 H 299 H 06/02/17 17:11 POC Glucose 275 H EKG Reviewed by me: Yes Phys Exam - Physical Examination Constitutional: NAD HEENT: PERRLA, moist MMs, sclera anicteric Neck: no JVD, supple Respiratory: no wheezing, no rales, no rhonchi Cardiovascular: RRR, no significant murmur, no rub Gastrointestinal: soft, non-tender, no distention, positive bowel sounds Musculoskeletal: pulses present, edema present Neurological: non-focal, normal sensation Lymphatic: no nodes Psychiatric: normal affect, A&O x 3 Skin: no rash, normal turgor Dx/Plan (1) Acute on chronic diastolic ACC/AHA stage C congestive heart failure Code(s): I50.33 - ACUTE ON CHRONIC DIASTOLIC (CONGESTIVE) HEART FAILURE Status : Acute (2) Acute on chronic respiratory failure with hypoxemia Code(s): J96.21 - ACUTE AND CHRONIC RESPIRATORY FAILURE WITH HYPOXIA Status: Acute Comment: from CHF exacerbation (3) Anasarca Code(s): R60.1 - GENERALIZED EDEMA Status: Acute Comment: continue metolazone, IV furosemide (4) Hypoglycemia associated with type 2 diabetes mellitus Code(s): E11.649 - TYPE 2 DIABETES MELLITUS WITH HYPOGLYCEMIA WITHOUT COMA Status: Acute (5) Anemia, normocytic normochromic Code(s): D64.9 - ANEMIA, UNSPECIFIED Status: Chronic (6) CKD (chronic kidney disease), stage III Code(s): N18.3 - CHRONIC KIDNEY DISEASE, STAGE 3 (MODERATE) Status: Chronic (7) COPD (chronic obstructive pulmonary disease) Status: Chronic Qualifiers: COPD type: chronic bronchitis Comment: stable (8) DM type 2 (diabetes mellitus, type 2) Status: Chronic Qualifiers: Diabetes mellitus solar technician insulin use: with correction use Diabetes mellitus complication status: with kidney complications Diabetes mellitus complication detail: with chronic kidney disease Chronic kidney disease stage : stage 3 (moderate) Qualified Code(s): E11.22 - Type 2 diabetes mellitus with diabetic chronic kidney disease; N18.3 - Chronic kidney disease, stage 3 ( moderate); N18.3 - Chronic kidney disease, stage 3 (moderate); Z79.4 - dungeon master (current) use of insulin; Z79.4 - dungeon master (current) use of insulin; Z79.4 - dungeon master (current) use of insulin; Z79.4 - detention (current) use of insulin Comment: continue accuchecks, insulin sliding scale. (9) Dyslipidemia Code(s): E78.5 - HYPERLIPIDEMIA, UNSPECIFIED Status: Chronic Comment: continue statin (10) Elevated troponin Code(s): R74.8 - ABNORMAL LEVELS OF OTHER SERUM ENZYMES Status: Chronic Comment: Demand ischemia without ACS, follow clinically (11) Physical deconditioning Code(s): R53.81 - OTHER MALAISE Status: Chronic - Plan cont current plan of care, plan discussed w/ family, social science research assistant * despite iv lasix, metolazone, his edema has not improved yet and not well enough for discharge * he should be on hospice if qualify * i spoke with about this and she understands pt's condition * medication reviewed as below * symptomatic treatment * prognosis is poor. Review of Systems - Review of Systems Other: not reliable with pt due to his level of cognitive status - Medications/Allergies Allergies/Adverse Reactions: Allergies Allergy/AdvReac Type Severity Reaction Status Date / Time No Known Drug Allergies Allergy Verified 03/27/17 20:27 Medications: Current Medications Acetaminophen (Tylenol) 650 mg PO Q4H PRN PRN Reason: Headache/Fever or Pain Albuterol Sulfate (Ventolin) 2.5 mg NEB [id number] PRN PRN Reason: Wheezing Albuterol/Ipratropium (Duoneb) 3 ml NEB [id number] [facility] Last Admin: 06/03/17 10:46 Dose: 3 ml Aspirin (Aspirin Chewable) 81 mg PO DAILY [facility] Last Admin: 06/03/17 08:36 Dose: 81 mg Benzonatate (Tessalon) 100 mg PO Q4H PRN PRN Reason: Cough Dextrose/Water (Dextrose 50%) 25 gm SLOW IVP PRN PRN PRN Reason: Hypoglycemia Last Admin: 06/01/17 05:41 Dose: 25 gm Docusate Sodium (Colace) 100 mg PO BID [facility] Last Admin: 06/03/17 08:34 Dose: 100 mg Fluconazole (Diflucan) 100 mg PO DAILY [facility] Last Admin: 06/03/17 08:34 Dose: 100 mg Furosemide (Lasix) 80 mg SLOW IVP TID [facility] Last Admin: 06/03/17 08:33 Dose: 80 mg Glucagon (Glucagon) 1 mg IM PRN PRN PRN Reason: Hypoglycemia Guaifenesin/Dextromethorphan (Robitussin Dm) 15 ml PO Q4H PRN PRN Reason: Cough Last Admin: 05/30/17 21:08 Dose: 15 ml Heparin Sodium (Porcine) (Heparin) 5,000 units SC TID [facility] Last Admin: 06/03/17 08:36 Dose: 5,000 units Hydralazine HCl (Apresoline) 10 mg SLOW IVP Q4H PRN PRN Reason: Blood Pressure Last Admin: 05/26/17 21:25 Dose: 10 mg Hydralazine HCl (Apresoline) 50 mg PO TID [facility] Last Admin: 06/03/17 08:35 Dose: 50 mg Dextrose/Water (D5w) 1,000 mls @ 0 mls/hr IV .Q0M PRN; As Directed PRN Reason: Hypoglycemia Insulin Detemir 8 units/ (Miscellaneous Medication) 0.08 mls @ 0 mls/hr SC QAM [facility] Last Admin: 06/03/17 08:47 Dose: 0.08 mls Insulin Human Lispro (Humalog) 0 units SC .MILD SLIDING SCALE PRN PRN Reason: Mild Correctional Scale Last Admin: 06/02/17 20:36 Dose: 4 unit Isosorbide Dinitrate (Isordil) 20 mg PO TID [facility] Last Admin: 06/03/17 08:35 Dose: 20 mg Labetalol HCl (Normodyne) 10 mg SLOW IVP Q4H PRN PRN Reason: SBP Greater Than 180 Labetalol HCl (Normodyne) 50 mg PO BID [facility] Last Admin: 06/03/17 08:35 Dose: 50 mg Lactulose (Lactulose) 20 gm PO DAILYPRN PRN PRN Reason: Constipation Loratadine (Claritin) 10 mg PO QAM [facility] Last Admin: 06/03/17 08:36 Dose: 10 mg Magnesium Hydroxide (Milk Of Magnesium) 30 ml PO DAILYPRN PRN PRN Reason: Constipation Metolazone (Zaroxolyn) 10 mg PO 0830 [facility] Last Admin: 06/03/17 08:34 Dose: 10 mg Montelukast Sodium (Singulair) 10 mg PO DAILY [facility] Last Admin: 06/03/17 08:34 Dose: 10 mg Ondansetron HCl (Zofran) 4 mg IVP Q6H PRN PRN Reason: Nausea/Vomiting Last Admin: 05/31/17 11:22 Dose: 4 mg Polyethylene Glycol (Miralax) 17 gm PO DAILY [facility] Last Admin: 06/03/17 08:36 Dose: 17 gm Sodium Chloride (Flush - Normal Saline) 10 ml IVF Q12HR [facility] Last Admin: 06/03/17 08:40 Dose: 10 ml Sodium Chloride (Flush - Normal Saline) 10 ml IVF PRN PRN PRN Reason: Saline Flush Last Admin: 06/01/17 16:04 Dose: 10 ml Tamsulosin HCl (Flomax) 0.4 mg PO HS [facility] Last Admin: 06/02/17 20:29 Dose: 0.4 mg
[2017-06-03] MEDS: HumaLOG 300 UNITS/3 ML VIAL SC PRN ×2 (13:45→17:22)
--- NOTE | 2017-06-03 15:33 | PRG ---
DATE OF SERVICE: 06/03/2017 SUBJECTIVE: The patient has no complaints and is sleeping comfortably. His inquired about the renal ultrasound and reviewed these normal results. OBJECTIVE: On exam, he has remained afebrile with vital signs stable, and he has had 2 liters out in the last 24 hours. He still has significant penile edema, but it has been elevated at this point. Hull catheter still in place, draining adequately. LABORATORY DATA: CBC was stable. Creatinine 1.56. Urine culture ultimately grew yeast, but at this point was clear and without hematuria. I will stick with the one dose of Diflucan that he already got. ASSESSMENT: A 76-year-old male with new concern for probable cardiac amyloidosis with anasarca and resulting penile and scrotal edema with prior microhematuria now indwelling Hull catheter for I's and O's and diuresis. PLAN: I would recommend improved overall hygiene specifically to the genital area and getting the catheter out as soon as his diuresis is complete and allow him to be voiding on his own, which may or may not be incontinent into diapers. I have added tamsulosin and he is currently getting this daily for his presumed BPH. [facility]
[2017-06-03] MEDS: Tamsulosin HCl 0.4 MG CAP PO SCH (21:32)
[2017-06-04 07:21] LABS: BUN (Urea Nitrogen) 36 mg/dL (8.4-25.7); Calc. Creatinine Clearance 57 mL/min (70-130); Calcium 9.4 mg/dL (7.8-10.44); Estimated GFR-MDRD 63; Glucose 103 mg/dL (83-110)
[2017-06-04 07:30] LABS: Anion Gap 15 mmol/L (10-20); Carbon Dioxide 40 mmol/L (23-31); Chloride 83 mmol/L (98-107); Potassium 3.6 mmol/L (3.5-5.1); Sodium 134 mmol/L (136-145)
[2017-06-04 08:28] LABS: Band 1 % (5-11); Eosinophils 2 % (0-10); Hemoglobin 9.3 g/dL (14.0-18.0); Hypochromia SLIGHT = 6-15 cells (100X) (0-5/hpf); Lymphocytes 26 % (21-51); MDiff Complete? YES; Mean Corpuscular HGB CONC 29.8 g/dL (32.0-36.0); Mean Corpuscular Hemoglobin 26.6 pg (27.0-31.0); Mean Corpuscular Volume 89.4 fl (80.0-94.0); Mean Platelet Volume 7.1 fL (7.4-10.4); Monocytes 8 % (0-10); Neutrophil 63 % (42-75); PLT Morphology Comment Appears Adequate; Platelet Count 211 thou/uL (130-400); Polychromasia SLIGHT = 2-3 cells (100X) (0-2/hpf); RBC Distribution Width 14.5 % (11.5-14.5); Red Blood Cell (RBC) Count 3.49 mill/uL (4.70-6.10); White Blood Cell (WBC) Count 3.7 thou/uL (4.8-10.8)
[2017-06-04] MEDS ORDERED: Allopurinol 100 MG TAB PO SCH (09:00)
[2017-06-04] MEDS ORDERED: Insulin Detemir 100 UNITS/ML 5 UNITS in Pre-Filled Syringe 1 EACH SC SCH (09:00)
[2017-06-04] MEDS: Fluconazole 100 MG TAB PO SCH (09:54)
[2017-06-04] MEDS: Labetalol 100 MG TAB PO SCH (09:54)
[2017-06-04] MEDS: Heparin 5,000 UNITS/ML VIAL SC SCH ×2 (09:54→14:22)
[2017-06-04] MEDS: hydrALAZINE 25 MG TAB PO SCH ×2 (09:55→14:22)
[2017-06-04] MEDS: Montelukast Sodium 10 mg Tablet PO SCH (09:55)
[2017-06-04] MEDS: Furosemide 40 MG TAB PO SCH ×2 (09:55→14:22)
[2017-06-04] MEDS: Loratadine 10 MG TAB PO SCH (09:56)
[2017-06-04] MEDS: Isosorbide Dinitrate 20 MG TAB PO SCH ×2 (09:57→14:22)
[2017-06-04] MEDS: Docusate 100 MG CAP PO SCH (09:57)
[2017-06-04] MEDS: Polyethylene Glycol 3350 17 GM Packet PO SCH (09:58)
--- NOTE | 2017-06-04 10:08 | PDOC.PN ---
- Subjective Encounter Start Date: 06/04/17 Encounter Start Time: 07:40 Patient seen and examined. No new complaints. No overnight events - Objective MAR Reviewed: Yes Vital Signs & Weight: Vital Signs (12 hours) Temp Pulse Resp BP BP Pulse Ox 06/04/17 09:54 85 131/63 06/04/17 07:21 99 06/04/17 07:19 80 18 99 06/04/17 04:00 97.7 F 83 16 129/62 97 06/04/17 02:27 81 16 100 06/03/17 23:50 97.7 F 78 18 112/56 L 100 06/03/17 22:25 78 16 100 Weight Weight 193 lb I&O: 06/03/17 06/04/17 06/05/17 06:59 06:59 06:59 Intake Total 580 840 Output Total 1950 1900 Balance -1370 -1060 Result Diagrams: 06/04/17 06:56 06/04/17 06:56 Additional Labs: Accuchecks 06/04/17 06/03/17 06/03/17 05:49 20:37 16:55 POC Glucose 68 L 94 153 H 06/03/17 10:25 POC Glucose 207 H EKG Reviewed by me: Yes Phys Exam - Physical Examination Constitutional: NAD HEENT: PERRLA, moist MMs, sclera anicteric Neck: no nodes, no JVD, supple Respiratory: no wheezing, no rales, no rhonchi reduced air entry Cardiovascular: RRR, no significant murmur, no rub Gastrointestinal: soft, non-tender, no distention, positive bowel sounds Musculoskeletal: pulses present, edema present Neurological: non-focal Lymphatic: no nodes Psychiatric: normal affect Skin: no rash, normal turgor Dx/Plan (1) Acute on chronic diastolic ACC/AHA stage C congestive heart failure Code(s): I50.33 - ACUTE ON CHRONIC DIASTOLIC (CONGESTIVE) HEART FAILURE Status : Acute (2) Acute on chronic respiratory failure with hypoxemia Code(s): J96.21 - ACUTE AND CHRONIC RESPIRATORY FAILURE WITH HYPOXIA Status: Acute Comment: from CHF exacerbation (3) Anasarca Code(s): R60.1 - GENERALIZED EDEMA Status: Acute Comment: continue metolazone, IV furosemide (4) Hypoglycemia associated with type 2 diabetes mellitus Code(s): E11.649 - TYPE 2 DIABETES MELLITUS WITH HYPOGLYCEMIA WITHOUT COMA Status: Acute (5) Anemia, normocytic normochromic Code(s): D64.9 - ANEMIA, UNSPECIFIED Status: Chronic (6) CKD (chronic kidney disease), stage III Code(s): N18.3 - CHRONIC KIDNEY DISEASE, STAGE 3 (MODERATE) Status: Chronic (7) COPD (chronic obstructive pulmonary disease) Status: Chronic Qualifiers: COPD type: chronic bronchitis Comment: stable (8) DM type 2 (diabetes mellitus, type 2) Status: Chronic Qualifiers: Diabetes mellitus buttermaker continuous churn insulin use: with buttermaker continuous churn use Diabetes mellitus complication status: with kidney complications Diabetes mellitus complication detail: with chronic kidney disease Chronic kidney disease stage : stage 3 (moderate) Qualified Code(s): E11.22 - Type 2 diabetes mellitus with diabetic chronic kidney disease; N18.3 - Chronic kidney disease, stage 3 ( moderate); N18.3 - Chronic kidney disease, stage 3 (moderate); Z79.4 - terminal superintendent (current) use of insulin; Z79.4 - long-term (current) use of insulin; Z79.4 - terminal superintendent (current) use of insulin; Z79.4 - terminal superintendent (current) use of insulin Comment: continue accuchecks, insulin sliding scale. (9) Dyslipidemia Code(s): E78.5 - HYPERLIPIDEMIA, UNSPECIFIED Status: Chronic Comment: continue statin (10) Elevated troponin Code(s): R74.8 - ABNORMAL LEVELS OF OTHER SERUM ENZYMES Status: Chronic Comment: Demand ischemia without ACS, follow clinically (11) Physical deconditioning Code(s): R53.81 - OTHER MALAISE Status: Chronic - Plan cont current plan of care, plan discussed w/ family, continue antibiotics, social insurance adviser * continue diflucan for yeast UTI * continue lasix and zaroxolyn for diuresis * renal function better today * DC tele * transfer to medical * pt is not ready for discharge to [place] due to his significant edema * medication reviewed as below * symptomatic treatment. Review of Systems - Review of Systems Other: not reliable with pt due to his level of cognitive status - Medications/Allergies Allergies/Adverse Reactions: Allergies Allergy/AdvReac Type Severity Reaction Status Date / Time No Known Drug Allergies Allergy Verified 03/27/17 20:27 Medications: Current Medications Acetaminophen (Tylenol) 650 mg PO Q4H PRN PRN Reason: Headache/Fever or Pain Albuterol Sulfate (Ventolin) 2.5 mg NEB [id number] PRN PRN Reason: Wheezing Albuterol/Ipratropium (Duoneb) 3 ml NEB [id number] [facility] Last Admin: 06/04/17 07:19 Dose: 3 ml Allopurinol (Zyloprim) 100 mg PO DAILY [facility] Last Admin: 06/04/17 09:56 Dose: 100 mg Aspirin (Aspirin Chewable) 81 mg PO DAILY [facility] Last Admin: 06/04/17 09:57 Dose: 81 mg Benzonatate (Tessalon) 100 mg PO Q4H PRN PRN Reason: Cough Dextrose/Water (Dextrose 50%) 25 gm SLOW IVP PRN PRN PRN Reason: Hypoglycemia Last Admin: 06/01/17 05:41 Dose: 25 gm Docusate Sodium (Colace) 100 mg PO BID [facility] Last Admin: 06/04/17 09:57 Dose: Not Given Fluconazole (Diflucan) 100 mg PO DAILY [facility] Last Admin: 06/04/17 09:54 Dose: 100 mg Furosemide (Lasix) 40 mg PO 0900,1400 [facility] Last Admin: 06/04/17 09:55 Dose: 40 mg Glucagon (Glucagon) 1 mg IM PRN PRN PRN Reason: Hypoglycemia Guaifenesin/Dextromethorphan (Robitussin Dm) 15 ml PO Q4H PRN PRN Reason: Cough Last Admin: 05/30/17 21:08 Dose: 15 ml Heparin Sodium (Porcine) (Heparin) 5,000 units SC TID [facility] Last Admin: 06/04/17 09:54 Dose: 5,000 units Hydralazine HCl (Apresoline) 10 mg SLOW IVP Q4H PRN PRN Reason: Blood Pressure Last Admin: 05/26/17 21:25 Dose: 10 mg Hydralazine HCl (Apresoline) 50 mg PO TID [facility] Last Admin: 06/04/17 09:55 Dose: 50 mg Dextrose/Water (D5w) 1,000 mls @ 0 mls/hr IV .Q0M PRN; As Directed PRN Reason: Hypoglycemia Insulin Detemir 5 units/ (Miscellaneous Medication) 0.05 mls @ 0 mls/hr SC QAM [facility] Insulin Human Lispro (Humalog) 0 units SC .MILD SLIDING SCALE PRN PRN Reason: Mild Correctional Scale Last Admin: 06/03/17 17:22 Dose: 2 unit Isosorbide Dinitrate (Isordil) 20 mg PO TID [facility] Last Admin: 06/04/17 09:57 Dose: 20 mg Labetalol HCl (Normodyne) 10 mg SLOW IVP Q4H PRN PRN Reason: SBP Greater Than 180 Labetalol HCl (Normodyne) 50 mg PO BID [facility] Last Admin: 06/04/17 09:54 Dose: 50 mg Lactulose (Lactulose) 20 gm PO DAILYPRN PRN PRN Reason: Constipation Loratadine (Claritin) 10 mg PO QAM [facility] Last Admin: 06/04/17 09:56 Dose: 10 mg Magnesium Hydroxide (Milk Of Magnesium) 30 ml PO DAILYPRN PRN PRN Reason: Constipation Montelukast Sodium (Singulair) 10 mg PO DAILY [facility] Last Admin: 06/04/17 09:55 Dose: 10 mg Ondansetron HCl (Zofran) 4 mg IVP Q6H PRN PRN Reason: Nausea/Vomiting Last Admin: 05/31/17 11:22 Dose: 4 mg Polyethylene Glycol (Miralax) 17 gm PO DAILY [facility] Last Admin: 06/04/17 09:58 Dose: Not Given Sodium Chloride (Flush - Normal Saline) 10 ml IVF Q12HR [facility] Last Admin: 06/04/17 09:58 Dose: 10 ml Sodium Chloride (Flush - Normal Saline) 10 ml IVF PRN PRN PRN Reason: Saline Flush Last Admin: 06/01/17 16:04 Dose: 10 ml Tamsulosin HCl (Flomax) 0.4 mg PO HS [facility] Last Admin: 06/03/17 21:32 Dose: 0.4 mg
[2017-06-04 10:50] LABS: A/G Ratio 0.6 (0.7-1.7); Albumin 2.4 g/dL (2.9-4.4); Alpha 1 0.3 g/dL (0.0-0.4); Alpha 2 0.7 g/dL (0.4-1.0); Beta 1.2 g/dL (0.7-1.3); Gamma 1.6 g/dL (0.4-1.8); Globulin, Total 3.8 g/dL (2.2-3.9); M-Spike Not Observed g/dL (Not Observed)
[2017-06-04] MEDS: HumaLOG 300 UNITS/3 ML VIAL SC PRN (12:14)
--- NOTE | 2017-06-04 13:09 | DIS ---
DATE OF ADMISSION: 05/26/2017 DATE OF DISCHARGE: 06/04/2017 PRIMARY CARE PHYSICIANS: Blas Dimas M.D./Mark Lehman M.D. DISCHARGE DISPOSITION: jail with hospice. PRIMARY DISCHARGE DIAGNOSES: Acute on chronic diastolic heart failure, NYHA stage IV, acute on chron ic respiratory failure with hypoxia, acute on chronic kidney failure, anasarca, hyperuricemia, and hy poglycemia. SECONDARY DISCHARGE DIAGNOSES: Physical deconditioning, chronically elevated troponin, dyslipidemia, diabetes type 2, chronic obstructive pulmonary disease, chronic kidney disease stage 3, normocytic n ormochromic anemia, chronic diastolic heart failure, chronic respiratory failure, and chronic kidney disease stage 3. PRIMARY PROCEDURE/OPERATION: None. RADIOLOGICAL INVESTIGATION: Chest x-ray and renal ultrasound. SIGNIFICANT LABORATORY DATA: Hemoglobin 9.3, creatinine 1.34. DISCHARGE MEDICATIONS: Ventolin nebulization q.4 hourly p.r.n., aspirin 81 mg p.o. daily, Tessalon 1 00 mg q.4 hourly p.r.n., Colace 100 mg p.o. b.i.d., Diflucan 100 mg p.o. daily for 7 days, Lasix 40 m g p.o. b.i.d., Humalog insulin as per sliding scale, hydralazine 50 mg t.i.d., Levemir insulin 5 unit s subcu daily, DuoNeb q.6 hourly p.r.n., Isordil 20 mg p.o. t.i.d., Normodyne 50 mg p.o. b.i.d., levo cetirizine 5 mg p.o. daily, Zaroxolyn 5 mg p.o. daily, Singulair 10 mg p.o. daily, MiraLax 17 grams p .o. daily, and pravastatin 40 mg p.o. at bedtime. CONTRAINDICATIONS: None. CODE STATUS: DNR. INPATIENT CONSULTANTS: Cardiology was consulted for CHF. Nephrology was following for kidney failur e. Hematology was consulted for rule out cardiac amyloidosis. TEST RESULTS PENDING ON DISCHARGE: None. ALLERGIES: No known drug allergy. DISCHARGE PLAN: Post hospital, patient is discharged to skilled nursing with hospice for comfort care. HOSPITAL COURSE: A 76-year-old male who was admitted by Dr. Nam on 05/26/2017. On admission, srinath benítez was found with anasarca. He was having bilateral lower extremity edema, abdominal wall edema, scrotal edema and he was found hypoxic. He does have chronic respiratory failure and chronic diasto lic heart failure. At this time, he was suffering from worsening of both. 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 During this admission, we treated him with IV Lasix and Zaroxolyn. Even with this maximum diuretic therapy while in hospital, he had only marginal improvement with anasarca. While in hospital, he was DNR. As this patient's condition was not improving significantly despite maximum 7 days treatment of CHF a nd as he has recurrent admission in past, we consulted palliative care. Patient and family member ag tamica with hospice care at skilled nursing. This patient's prognosis is very poor. There was concern of underlying amyloidosis and that is why Oncology was consulted, but patient was not a good candidate for any procedure and his serum protein electrophoresis was normal. His urine culture was growing ye ast and that is why we started on Diflucan therapy. While in hospital, Urology was consulted for his penile edema and scrotal edema. On discharge, we are considering Hull catheter to be placed for co mfort. The patient is seen and examined at bedside today. Please see my progress note from today for furthe r detail. Total time spent on discharge day more than 30 minutes.
[2017-06-04 17:00] VITALS: BP 105/52; TEMP 97.9
[2017-06-05 06:16] LABS: IgA - Total IgA (Sendout) 635 mg/dL (61-437); Immunoglobulin - G (Sendout) 1617 mg/dL (700-1600); Immunoglobulin - M (Sendout) 30 mg/dL (15-143)
== END 2017-06-04 17:00 | DRG 291 ==
LOC: ERS 12:37 → 2NO 15:26
PROVIDERS: ADMIT Internal Medicine; ATTEND Internal Medicine
DX: Z66 Do not resuscitate; J96.21 Acute and chronic respiratory failure with hypoxia; I50.33 Acute on chronic diastolic (congestive) heart failure; Z79.899 Other long term (current) drug therapy; R60.1 Generalized edema; E11.22 Type 2 diabetes mellitus with diabetic chronic kidney disease; Z51.5 Encounter for palliative care; N18.3 Chronic kidney disease, stage 3 (moderate); E79.0 Hyperuricemia without signs of inflammatory arthritis and tophaceous disease; Z79.4 Long term (current) use of insulin; I27.20 Pulmonary hypertension, unspecified; Z79.82 Long term (current) use of aspirin; Z87.891 Personal history of nicotine dependence; B37.49 Other urogenital candidiasis; I24.8 Other forms of acute ischemic heart disease; N17.9 Acute kidney failure, unspecified; E11.649 Type 2 diabetes mellitus with hypoglycemia without coma; E78.5 Hyperlipidemia, unspecified; I13.0 Hypertensive heart and chronic kidney disease with heart failure and stage 1 through stage 4 chronic kidney disease, or unspecified chronic kidney disease; D64.9 Anemia, unspecified; N40.0 Benign prostatic hyperplasia without lower urinary tract symptoms; J44.9 Chronic obstructive pulmonary disease, unspecified
CPT/HCPCS: 36415; 36416; 71045; 76770; 80048; 80053; 81015; 82553; 83735; 83880; 84165; 84484; 84550; 85025; 86334; 87086; 93005; 93798; 94640; 96374; A4216; G8978-GP-CJ; G8978-GP-CM; G8979-GP-CJ; G8979-GP-CM; G8980-GP-CM; G8996-GN-CK; G8997-GN-CJ; J0360; J1644; J1815; J1940; J2405; J7620